=== PATIENT | female | born 1970 | race Caucasian/White ===

== ENCOUNTER 2018-02-05 20:34 | Inpatient (IN) | payer OTHER ==
[2018-02-05 21:44] LABS: Absolute Lymphocytes (CBC) 2.3 K/uL (0.7-4.9); Absolute Monocytes 1.3 K/uL (0.1-1.3); Absolute Neutrophil 16.2 K/uL (1.8-8.0); Basophils % 0.3 % (0-1.3); Eosinophils % 0.2 % (0-4.4); Hematocrit 38.7 % (36.0-45.0); Lymphocytes % 11.6 % (15.3-44.8); MCH 27.6 pg (27.0-35.0); MCV 82.2 fL (80-100); MPV 7.6 fL (7.6-11.3); Monocytes % 6.4 % (3.3-12.3); RBC Red Blood Cell Count 4.71 M/uL (3.86-4.86)
[2018-02-05] MEDS ORDERED: NA CHLORIDE 0.9% 1,000 ML ONE ×2 (21:54→22:29)
[2018-02-05 21:55] LABS: Bicarbonate 26 mEq/L (21-31); Glucose Level 88 mg/dL (65-120); Potassium 3.1 mEq/L (3.6-5.0); Sodium Level 130 mEq/L (135-145)
[2018-02-05 22:01] LABS: ALT/SGPT 14 IU/L (10-60); AST/SGOT 31 IU/L (10-42); Albumin 4.2 g/dL (3.2-5.5); Alkaline Phosphatase 64 IU/L (42-121); BUN Blood Urea Nitrogen 9 mg/dL (6-20); Bilirubin Direct 0.1 mg/dL (0-0.2); Bilirubin Total 1.1 mg/dL (0.3-1.2); Glomerular Filtration Rate 89 mL/min (=/>90); Protein, Total 7.7 g/dL (6.0-8.3)
[2018-02-05 22:10] LABS: Urine Blood NEGATIVE (NEG); Urine Glucose NEGATIVE (NEG); Urine Protein NEGATIVE (NEG)
[2018-02-05 22:15] LABS: Urine Bacteria <20 /HPF (<20); Urine Culture Reflex Order NOT NEEDED; Urine RBC <5 /HPF (NONE SEEN)
[2018-02-05 22:17] LABS: Alcohol Serum/Plasma < 10 mg/dl; Salicylates Level < 4.0 mg/dl (<30)
[2018-02-05 22:19] LABS: Barbiturates NEGATIVE; Benzodiazepines NEGATIVE; Cocaine NEGATIVE; METHAMPHETAM NEGATIVE; Opiates NEGATIVE; Phencyclidine NEGATIVE; THC Cannibis NEGATIVE
[2018-02-05] MEDS ORDERED: LEVALBUTEROL 1.25 MG/3 ML NEB ONE (22:28)
[2018-02-05] MEDS ORDERED: DIAZEPAM 10 MG/2 ML INJ SYRINGE ONE (22:30)
[2018-02-05] MEDS ORDERED: KCL 20 MEQ/100 mL IVPB 20 MEQ/100 ML BAG IV ONE (22:43)
[2018-02-06] MEDS ORDERED: ZIPRASIDONE MESYLA 20 MG/VIAL IM ONE (00:50)
[2018-02-06] MEDS ORDERED: LORazepam 2 MG/ML VIAL ONE (01:49)
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
--- NOTE | 2018-02-06 02:58 | EDPHYS ---
Physician Documentation [facility] Name: Fariba Payne Age: 47 yrs Sex: Female : 1970 Arrival Date: 02/05/2018 Time: 20:36 Bed 3 Private MD: ED Physician Matthew Rodriguez HPI: 02/05 23:48 This 47 yrs old Female presents to ER via Wheelchair with complaints of snw Altered Mental Status. 23:48 The patient presents with agitation, trouble concentrating. Onset: The symptoms/episode snw began/occurred at an unknown time. and became worse just prior to arrival. Possible causes: [place], pt off medications x several months. Associated signs and symptoms: Pertinent positives: agitation, confusion, gait abnormality, lightheadedness, weakness, cramping, insomnia. Current symptoms: In the emergency department the patient's symptoms are unchanged from the initial presentation. Patient's baseline: Neuro: alert and fully oriented, The patient has a previous history of psych meds, risperdol. It is unknown whether or not the patient has had similar symptoms in the past. The patient has not recently seen a physician. Lost [facility] follow up for missing appts, no f/u x several months. 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 - Social history:: Smoking status: Patient uses tobacco products, smokes one pack cigarettes per day. Patient uses alcohol, occasionally. Patient/guardian denies using street drugs. ROS: 23:47 Eyes: Negative for injury, pain, redness, and discharge, ENT: Negative for injury, snw pain, and discharge, Neck: Negative for injury, pain, and swelling, Cardiovascular: Negative for chest pain, palpitations, and edema. 23:47 Abdomen/GI: Negative for abdominal pain, nausea, vomiting, diarrhea, and constipation, Back: Negative for injury and pain, : Negative for injury, bleeding, discharge, and swelling, MS/Extremity: Negative for injury and deformity, Skin: Negative for injury, rash, and discoloration, Neuro: Negative for headache, weakness, numbness, tingling, and seizure. 23:47 Constitutional: Positive for body aches, malaise, poor PO intake, weight loss. 23:47 Respiratory: Positive for cough, shortness of breath, wheezing. 23:47 Psych: Positive for anxiety, insomnia. Exam: 23:45 Head/Face: Normocephalic, atraumatic. Eyes: Pupils equal round and reactive to light, snw extra-ocular motions intact. Lids and lashes normal. Conjunctiva and sclera are non-icteric and not injected. Cornea within normal limits. Periorbital areas with no swelling, redness, or edema. 23:45 Abdomen/GI: Soft, non-tender, with normal bowel sounds. No distension or tympany. No guarding or rebound. No evidence of tenderness throughout. Back: No spinal tenderness. No costovertebral tenderness. Full range of motion. MS/ Extremity: Pulses equal, no cyanosis. Neurovascular intact. Full, normal range of motion. 23:45 Neuro: Awake and alert, GCS 15, oriented to person, place, time, and situation. Cranial nerves II-XII grossly intact. Motor strength 5/5 in all extremities. Sensory grossly intact. Cerebellar exam normal. Normal gait. 23:45 Neck: Trachea midline, no thyromegaly or masses palpated, and no cervical lymphadenopathy. Supple, full range of motion without nuchal rigidity, or vertebral point tenderness. No Meningismus. Chest/axilla: Normal chest wall appearance and motion. Nontender with no deformity. No lesions are appreciated. Cardiovascular: Tachycardic rate and rhythm with a normal S1 and S2. No gallops, murmurs, or rubs. Normal PMI, no JVD. No pulse deficits. 23:45 Constitutional: The patient appears alert, anxious, restless, uncomfortable. 23:45 ENT: Mouth: Oral mucosa: dry. 23:45 Respiratory: the patient does not display signs of respiratory distress, Respirations: shallow respirations, tachypnea, Breath sounds: bronchial sounds, that are moderate, are heard diffusely, wheezin:45 Skin: Appearance: Temperature: warm, Moisture: dry. 23:45 Psych: Behavior/mood is anxious, Affect is calm, Oriented to person, place, Patient has no thoughts/intents to harm self or others. Vital Signs: 21:12 BP 159 / 114; Pulse 112; Resp 26; Temp 98.3(O); Pulse Ox 93% ; Weight 40.37 kg (R); tc3 Height 5 ft. 6 in. (167.64 cm) (R); Pain 0/10; 22:00 BP 119 / 90; Pulse 103; Resp 18; Pulse Ox 94% on R/A; dh3 23:30 BP 145 / 84; Pulse 103; Resp 19; Pulse Ox 94% on 2 lpm NC; rk2 03/15 00:30 BP 152 / 67; Pulse 101; Resp 19; Pulse Ox 97% on 2 lpm NC; rk2 04:20 BP 140 / 106; Pulse 140; Resp 40; Pulse Ox 100% on 15% Non-rebreather mask; lp1 04:27 BP 136 / 70; Pulse 137; Resp 12; Pulse Ox 100% on BVM; lp1 04:45 BP 132 / 77; Pulse 127; Resp 14; Pulse Ox 100% on 50% FiO2 ETT vent; bs1 05:00 BP 153 / 94; Pulse 114; Resp 15; Pulse Ox 91% on 50% FiO2 ETT vent; bs1 05:20 BP 133 / 61; Pulse 130; Resp 25; Temp 97.5(C); Pulse Ox 92% on 50% FiO2 ETT vent; bs1 05:40 BP 119 / 58; Pulse 119; Resp 20; Temp 99(C); Pulse Ox 95% on 50% FiO2 ETT vent; bs1 06:00 BP 115 / 51; Pulse 110; Resp 18; Temp 98.6(C); Pulse Ox 99% on 50% FiO2 ETT vent; bs1 06:15 BP 105 / 94; Pulse 91; Resp 18; Temp 98.9(C); Pulse Ox 100% on 50% FiO2 ETT vent; lp1 06:30 BP 116 / 59; Pulse 102; Resp 18; Temp 99.1(C); Pulse Ox 97% on 50% FiO2 ETT vent; bs1 06:45 BP 106 / 63; Pulse 99; Resp 18; Temp 99.1(C); Pulse Ox 100% on 50% FiO2 ETT vent; bs1 07:20 BP 109 / 54; Pulse 115 MON; Resp 18 S; Temp 99.1; Pulse Ox 100% on 50% FiO2 ETT vent; sg 02/05 21:12 Body Mass Index 14.36 (40.37 kg, 167.64 cm) tc3 Procedures: 04:33 Intubation: Ventilated with 100% NRB prior to procedure. Intubated orally using # 3 kathy Armaan blade with 7.5 mm ETT. was successful on first attempt. Ventilated with Ambu bag. Tube secured with ETT monte measured 22 cm at teeth. Placement verified by CXR, CO2 detector with (+) color change, auscultating bilateral breath sounds, Patient tolerated well. MDM: 02/05 21:23 Patient medically screened. [facility] 02/06 02:57 Data reviewed: vital signs, nurses notes. Data interpreted: Pulse oximetry: on room air snw is 93 %. Interpretation: borderline. Plan: O2 by NC applied. Counseling: I had a detailed discussion with the patient and/or guardian regarding: the historical points, exam findings, and any diagnostic results supporting the discharge/admit diagnosis, the presence of at least one elevated blood pressure reading (>120/80) during this emergency department visit, lab results, radiology results, the need for further work-up and treatment in the hospital, smoking cessation. Physician consultation: Viviana Lacy MD was called at 02:58, was contacted at 02:58, regarding admission, to the telemetry unit. in the emergency department to see patient at 02:58. 02/05 21:05 Order name: Urine Culture [facility] 02/05 21:05 Order name: Urine Drug Screen [facility] 02/05 21:05 Order name: Urine Microscopic Only [facility] 02/05 21:19 Order name: Acetaminophen [facility] 02/05 21:19 Order name: Basic Metabolic Panel [facility] 02/05 21:19 Order name: CBC with Diff [facility] 02/05 21:19 Order name: ETOH Level formerly [facility] 02/05 21:19 Order name: Hepatic Function formerly [facility] 02/05 21:19 Order name: PT-INR [facility] 02/05 21:19 Order name: Ptt, Activated [facility] 02/05 21:19 Order name: Salicylate [facility] 02/05 21:50 Order name: CBC with Automated Diff; Complete Time: 21:53 [facility] 02/05 21:50 Order name: Protime (+INR); Complete Time: 21:53 EDVT 02/05 21:50 Order name: PTT, Activated Partial Thromb; Complete Time: 21:53 EDVT 02/05 21:55 Order name: Basic Metabolic Panel; Complete Time: 22:26 EDVT 02/05 22:06 Order name: Urine Dipstick--Ancillary (enter results) ia 02/05 22:07 Order name: Urine --Ancillary (enter results) ia 02/05 22:11 Order name: Urine Dipstick-Ancillary; Complete Time: 22:15 EDMS 02/05 22:11 Order name: Urine --Ancillary; Complete Time: 22:15 EDVT 02/05 22:15 Order name: Urine Microscopic Only; Complete Time: 22:18 EDVT 02/05 22:18 Order name: Liver (Hepatic) Function; Complete Time: 22:26 [facility] 02/05 22:18 Order name: Acetaminophen Level; Complete Time: 22:26 [facility] 02/05 22:18 Order name: Alcohol Serum/Plasma; Complete Time: 22:26 [facility] 02/05 22:18 Order name: Salicylates Level; Complete Time: 22:26 [facility] 02/05 22:20 Order name: Urine Drug Screen; Complete Time: 22:26 [facility] 02/06 04:32 Order name: ABG [facility] 02/06 04:32 Order name: Sputum Culture [facility] 02/06 05:19 Order name: ABG Arterial Blood Gas; Complete Time: 05:33 EDVT 02/06 05:23 Order name: Blood Culture Adult (2) [facility] 02/06 07:03 Order name: Basic Metabolic Panel; Complete Time: 07:21 [facility] 02/05 21:05 Order name: Urine Test (obtain specimen); Complete Time: 22:04 [facility] 02/05 21:05 Order name: Urine Dipstick-Ancillary (obtain specimen); Complete Time: 22:04 [facility] 02/05 21:19 Order name: EKG; Complete Time: 21:20 [facility] 02/05 21:19 Order name: EKG - Nurse/Tech; Complete Time: 22:04 [facility] 02/05 21:19 Order name: IV Saline Lock; Complete Time: 21:37 [facility] 02/05 21:19 Order name: Labs collected and sent; Complete Time: 21:38 sn 02/06 00:41 Order name: CXR XRAY w 02/06 04:32 Order name: Chest Single View XRAY [facility] 02/06 07:17 Order name: XRAY Chest (1 view) 02/06 07:22 Order name: CBC with Automated Diff EDMS Administered Medications: 02/05 21:37 Drug: NS 0.9% 1000 ml Route: IV; Rate: 1 bolus; Site: right forearm; rk2 02/06 06:06 Follow up: IV Status: Completed infusion 1 02/05 22:18 Drug: Xopenex (3) 1.25 mg Route: Inhalation; rk2 22:18 Drug: Valium 5 mg Route: IVP; Site: right antecubital; rk2 23:00 Follow up: Response: No adverse reaction rk2 22:19 Drug: NS 0.9% 1000 ml Route: IV; Rate: 1 bolus; Site: right antecubital; rk2 02/06 06:06 Follow up: IV Status: Completed infusion [facility] 02/05 22:36 Drug: Potassium Chloride 20 mEq Route: IV; Rate: calculated rate; Site: right rk2 antecubital; 23:36 Follow up: Response: No adverse reaction; IV Status: Completed infusion rk2 23:57 Follow up: Response: No adverse reaction; IV Status: Completed infusion 2 02/06 00:47 Drug: Geodon 20 mg Route: IM; Site: right deltoid; rk2 03:01 Follow up: Response: Blood sugar is elevated; Anxiety unchanged rk2 01:36 Drug: Ativan 1 mg Route: IVP; Site: right antecubital; rk2 03:00 Follow up: Response: Anxiety unchanged rk2 03:14 Drug: HALdol (as decanoate) 5 mg Route: IM; Site: left deltoid; rk2 06:05 Follow up: Response: No adverse reaction bs1 03:51 Drug: fentaNYL (PF) 50 mcg Route: IM; Site: right gluteus; tc3 06:03 Follow up: Response: No adverse reaction bs1 04:23 Drug: Versed 6 mg Route: IVP; Site: right antecubital; lp1 06:04 Follow up: Response: No adverse reaction bs1 04:25 Drug: Etomidate 20 mg Route: IVP; Site: right antecubital; lp1 06:04 Follow up: Response: No adverse reaction bs1 04:27 Drug: Rocuronium 27 mg Route: IVP; Site: right antecubital; lp1 06:04 Follow up: Response: No adverse reaction bs1 05:00 Drug: Propofol 5 mcg/kg/min Route: IV; Rate: calculated rate; Site: right forearm; bs1 07:19 Follow up: IV Status: Completed infusion bs1 05:31 Drug: Versed 3 mg Route: IVP; Site: right forearm; bs1 06:05 Follow up: Response: No adverse reaction bs1 05:50 Drug: SOLU-Medrol 2 mg/kg Route: IVP; Site: right forearm; bs1 06:04 Follow up: Response: No adverse reaction bs1 05:50 Drug: Albuterol - atroVENT (3:1) (2.5 mg - 0.5 mg) 3 ml Route: Nebulizer; bs1 06:05 Follow up: Response: No adverse reaction bs1 06:16 Drug: Versed 2 mg Route: IVP; Site: right forearm; bs1 07:18 Follow up: Response: No adverse reaction bs1 06:46 Drug: levofloxacin 500 mg Volume: 100 ml; Route: IVPB; Infused Over: 60 mins; Site: lp1 left antecubital; 07:19 Follow up: IV Status: Completed infusion bs1 07:34 Drug: VecuroNIUM 10 mg {Note: VO per Gris Sherman PA.} Route: IVP; Site: left antecubital; tw2 Point of Care Testing: Blood Glucose: 05:33 Blood Glucose: 140 mg/dL; lp1 Ranges: Critical Glucose Levels:Adult <50 mg/dl or >400 mg/dl <40 mg/dl or >180 mg/dl Disposition: 13:54 Co-signature as Attending Physician, Matthew Rodriguez MD I agree with the assessment and kathy plan of care. Disposition: 02/06/18 02:57 Hospitalization ordered by Viviana Lacy for Observation. Preliminary diagnosis are Psychotic disorder with hallucinations due to known physiological condition, Chronic obstructive pulmonary disease, unspecified. - Bed requested for Intensive Care Unit. - Status is Observation. sg - Condition is Stable. - Problem is an acute exacerbation. - Symptoms have worsened. UTI on Admission? No Signatures: Dispatcher [employer] EDMS Mariluz Baig RN RN Brandon Fitzgerald, RN RN Matthew Guevara MD MD cha Therrien, Shelly, REQUISITION APPROVER-C REQUISITION APPROVER-Csnw Chet Bee MD MD rn Pena, Laura, RN RN lp1 Eva Garcia, RN RN tw2 Annie Bowers RN RN tc3 Dena Shirley RN RN bs1 Nilda Khan RN RN rk2 Corrections: (The following items were deleted from the chart) 02/05 23:48 23:45 Neck: Trachea midline, no thyromegaly or masses palpated, and no cervical snw lymphadenopathy. Supple, full range of motion without nuchal rigidity, or vertebral point tenderness. No Meningismus. Chest/axilla: Normal chest wall appearance and motion. Nontender with no deformity. No lesions are appreciated. Cardiovascular: Regular rate and rhythm with a normal S1 and S2. No gallops, murmurs, or rubs. Normal PMI, no JVD. No pulse deficits. snw
[2018-02-06] MEDS ORDERED: HALOPERIDOL LACT 5 MG/ML INJ ONE ×2 (03:28→07:24)
[2018-02-06] MEDS ORDERED: FENTANYL CITR 100 MCG/2 ML ONE (03:45)
[2018-02-06] MEDS ORDERED: RSI MEDICATION KIT IV ONE ×2 (04:34→04:53)
[2018-02-06] MEDS ORDERED: MIDAZOLAM HCL 2 MG/2 ML INJ ONE ×4 (04:34→06:37)
[2018-02-06] MEDS ORDERED: ONDANSETRON 4 MG/2 ML VIAL IV PRN (04:35)
[2018-02-06] MEDS ORDERED: ROCURONIUM 50 MG/5 ML VIAL IV ONE (04:40)
[2018-02-06] MEDS ORDERED: HALOPERIDOL LACT 5 MG/ML INJ IV PRN (04:45)
[2018-02-06 04:52] LABS: Arterial Blood Carboxyhemoglob 1.5 % (0-1.5); Blood Gas Oxyhemoglobin 95.2 % (94-97); Blood O2 Saturation 97.2 % (92-98.5)
[2018-02-06] MEDS: NA CHLORIDE 0.9% 1,000 ML IV SCH ×2 (05:00→18:20)
[2018-02-06] MEDS ORDERED: PROPOFOL 1,000 MG/100 ML VIAL IV ONE ×2 (05:05→11:21)
[2018-02-06] MEDS ORDERED: IPRATROPIUM BROM 0.5MG/2.5ML ONE (06:04)
[2018-02-06] MEDS ORDERED: ALBUTEROL 2.5 MG/3 ML NEB SOL ONE (06:04)
[2018-02-06] MEDS ORDERED: METHYLPREDNISOLONE 40 MG INJ ONE (06:05)
[2018-02-06] MEDS ORDERED: NA CHLORIDE 0.9% 1,000 ML ONE (06:05)
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
[2018-02-06] MEDS ORDERED: Levofloxacin500mg IV 500 MG/100 ML BAG IV ONE (06:47)
[2018-02-06 07:03] LABS: Potassium 3.3 mEq/L (3.6-5.0)
[2018-02-06 07:20] LABS: Absolute Lymphocytes (CBC) 0.8 K/uL (0.7-4.9); Absolute Monocytes 0.8 K/uL (0.1-1.3); Absolute Neutrophil 14.5 K/uL (1.8-8.0); Basophils % 0.1 % (0-1.3); Hematocrit 38.5 % (36.0-45.0); Lymphocytes % 5.2 % (15.3-44.8); MCH 27.1 pg (27.0-35.0); MCV 84.7 fL (80-100); Monocytes % 5.1 % (3.3-12.3); RBC Red Blood Cell Count 4.55 M/uL (3.86-4.86)
[2018-02-06] MEDS ORDERED: VECURONIUM 10 MG/VIAL IV ONE (07:51)
[2018-02-06] MEDS: IPRATROPIUM BROM 0.5MG/2.5ML NEB SCH ×3 (08:00→19:40)
[2018-02-06] MEDS: ARFORMOTEROL TARTRATE 15 MCG/2 ML VIAL.NEB NEB SCH ×2 (08:00→19:40)
[2018-02-06] MEDS: ALBUTEROL 2.5 MG/3 ML NEB SOL NEB SCH ×3 (08:00→19:40)
--- NOTE | 2018-02-06 08:20 | RAD REPORT ---
EXAM DESCRIPTION: RAD - Chest Single View - 02/06/2018 1:12 am CLINICAL HISTORY: COPD, smoker. COMPARISON: 01/01/2015 FINDINGS: Portable technique limits examination quality. The lungs are diffusely emphysematous but clear. The heart is normal in size. No displaced fractures. IMPRESSION: COPD.
[2018-02-06 08:51] LABS: Blood Morphology Comment NOT SEEN (NOT SEEN); Platelet Estimate ADEQ
[2018-02-06] MEDS ORDERED: PROPOFOL 200 MG/20 ML VIAL IV SCH (09:00)
--- NOTE | 2018-02-06 09:05 | RAD REPORT ---
EXAM DESCRIPTION: RAD - Chest Single View - 02/06/2018 4:47 am CLINICAL HISTORY: Shortness of breath, chest pain COMPARISON: 02/06/2018 FINDINGS: Portable technique limits examination quality. Mild diffuse COPD is present. Tip of the ET tube is above the dulce. Enteric tube descends in the st omach. The heart is normal in size. No displaced fractures. IMPRESSION: COPD. Endotracheal intubation with tip above the dulce. Enteric tube descends in the stomach.
--- NOTE | 2018-02-06 09:31 | RAD REPORT ---
EXAM DESCRIPTION: RAD - Chest Single View - 02/06/2018 7:42 am CLINICAL HISTORY: Endotracheal intubation. COMPARISON: 02/06/2018 FINDINGS: Portable technique limits examination quality. Diffuse COPD is present. Tip of the ET tube is above the dulce. Enteric tube descends in the stomach . The heart is normal in size. IMPRESSION: Stable chest since earlier examination.
--- NOTE | 2018-02-06 09:32 | RAD REPORT ---
EXAM DESCRIPTION: CT - Head Brain Wo Cont - 02/06/2018 8:21 am CLINICAL HISTORY: Altered consciousness COMPARISON: 01/01/2015 TECHNIQUE: All CT scans are performed using dose optimization technique as appropriate and may inclu de automated exposure control or mA/KV adjustment according to patient size. FINDINGS: No intracranial hemorrhage, hydrocephalus or extra-axial fluid collection.No areas of brai n edema or evidence of midline shift. Complete opacification of the left maxillary antrum suspected. The paranasal sinuses and mastoids are otherwise clear. The calvarium is intact. IMPRESSION: No acute intracranial abnormality. Complete left maxillary sinus opacification.
[2018-02-06] MEDS: LORazepam 2 MG/ML VIAL IV PRN ×3 (10:00→21:13)
--- NOTE | 2018-02-06 10:08 | P.PN ---
Subjective Date of Service: 02/06/18 Primary Care Provider: None, previously seen by [facility] Chief Complaint: Altered mental status/acute manic episode/COPD exacerbation Subjective: Other (Patient intubated and sedated at this time.) Physical Examination - Vital Signs Temperature: 99.1 F Blood Pressure: 109/54 Pulse: 115 Respirations: 18 Pulse Ox (%): 95 - Physical Exam General: Disheveled, Other (Patient intubated and sedated.) HEENT: Atraumatic Neck: Supple Respiratory: Clear to auscultation bilaterally, Normal air movement Cardiovascular: Normal pulses, Regular rate/rhythm Gastrointestinal: Normal bowel sounds, Soft and benign, Non-distended Musculoskeletal: No erythema, No tenderness, No warmth Integumentary: No warmth, No cyanosis - Studies Laboratory Data (last 24 hrs) 02/05/18 21:35: PT 11.8, INR 1.00, APTT 33.0 02/05/18 21:35: WBC 19.9 H, Hgb 13.0, Hct 38.7, Plt Count 339 02/05/18 21:35: Sodium 130 L, Potassium 3.1 L, BUN 9, Creatinine 0.71, Glucose 88, Total Bilirubin 1.1, AST 31, ALT 14, Alkaline Phosphatase 64 Medications List Reviewed: Yes Assessment & Plan - Problems (Diagnosis) (1) Acute psychosis Current Visit: Yes Status: Acute Plan: Patient currently intubated and sedated. Will have pulmonology evaluate an wean off ventilator. Patient with history of bipolar disorder. Patient came in with acute psychosis. Patient has been without medication for quite some time. Daughter reports that she was taking Paxil and seen by [facility]. Once the patient is medically stable, will have social media community manager consult [facility] to assess. Will try to obtain medical records from [facility]. Patient also being treated for COPD exacerbation. Patient with history of hypothyroidism. It appears that she has not been taking any medication. Will check TSH. Patient may require IV medication. IV thiamine also added. Patient was started on IV Depakote for acute psychosis. (2) Bipolar disorder Current Visit: Yes Status: Acute Plan: Will continue with above plan of care. Patient on IV Depakote. Will monitor closely. Qualifiers: Active/Remission status: currently active Current bipolar episode type: manic Current episode severity: severe Psychotic features: with psychotic features Qualified Code(s): F31.2 - Bipolar disorder, current episode manic severe with psychotic features (3) Emphysema with both acute and chronic bronchitis Current Visit: Yes Status: Acute Plan: Patient was intubated. Will continue with COPD treatment. Patient on IV steroids. Pulmonology consulted. Await further recommendation. Will wean off ventilator. (4) Respiratory distress Current Visit: Yes Status: Acute Plan: Continue with above plan of care. Await further recommendations from pulmonology. (5) Hypothyroidism Current Visit: No Status: Chronic Plan: Patient with history of hypothyroidism. Patient is not been compliant. Will check TSH and free T4. If abnormal patient will need medication. (6) Hyponatremia Current Visit: Yes Status: Acute Plan: This has improved with IV fluids. Will monitor and adjust appropriately. (7) Hypokalemia Current Visit: Yes Status: Acute Plan: Will continue with replacement protocol. Will monitor and adjust appropriately Discharge Plan: Home Plan to discharge in: Greater than 2 days Time Spent Managing Pts Care (In Minutes): 55
[2018-02-06 10:13] LABS: Barbiturates NEGATIVE; Benzodiazepines POSITIVE; Cocaine NEGATIVE; METHAMPHETAM NEGATIVE; Opiates NEGATIVE; Phencyclidine NEGATIVE; THC Cannibis NEGATIVE
[2018-02-06 10:14] LABS: Thyroid Stimulating Hormone 2.34 uIU/mL (0.34-5.60)
--- NOTE | 2018-02-06 10:25 | EKG ---
Test Date: 2018-02-05 Test Time: 20:48:05 [employer]: CL MEASUREMENT RESULTS: Intervals: Rate: 95 CA: 134 QRSD: 74 QT: 358 QTc: 449 [place]: P: 81 CA: 134 QRS: 79 T: 80 INTERPRETIVE STATEMENTS: Normal sinus rhythm Anterior infarct, age undetermined Abnormal ECG Compared to ECG 01/02/2015 10:52:01 Myocardial infarct finding now present Sinus tachycardia no longer present ST (T wave) deviation no longer present Electronically Signed On 02-06-18 10:23:43 CDT by Mono Cox
[2018-02-06] MEDS ORDERED: ETOMIDATE 20 MG/10 ML VIAL IV ONE (10:35)
[2018-02-06] MEDS: METHYLPREDNISOLONE 40 MG INJ IV SCH ×2 (11:42→17:16)
[2018-02-06] MEDS: VALPROATE SODIUM INJ 500 MG in NA CHLORIDE 0.9% 100 ML IV SCH ×2 (11:42→18:01)
[2018-02-06] MEDS: FOLIC ACID 1 MG, MULTIVITAMINS INJ 10 ML, THIAMINE HCL 100 MG in NA CHLORIDE 0.9% 1,000 ML IV SCH (11:42)
[2018-02-06] MEDS: ENOXAPARIN 40 MG/0.4 ML SQ SCH (11:43)
[2018-02-06] MEDS ORDERED: NA CHLORIDE 0.9% 250 ML IV PRN (12:17)
--- NOTE | 2018-02-06 12:37 | P.CNS ---
Date of Consult: 02/06/18 Primary Care Provider: None, previously seen by [facility] Chief Complaint: Altered mental status/acute manic episode/COPD exacerbation History of Present Illness: Patient is 47 years of age history of manic-depressive illness became worse over the past 4 days more shortness of breath heavy smoker she ended up with some manic episodes ended up here in the hospital hypoxic hypercapnic respiratory failure currently on a ventilator on a propofol drip because very agitated she has no insurance not taking any medications or inhalers Allergies morphine Allergy (Severe, Verified 02/06/18 12:06) Anaphylaxis Home Medications: Levothyroxine [Synthroid*] 25 mcg PO [id number] 10/14/13 Mirtazapine [Remeron*] 30 mg PO DAILY 10/14/13 Paroxetine HCl [Paxil*] 20 mg PO DAILY 10/14/13 Albuterol Neb [Proventil 0.083% Neb Soln] 2.5 mg NEB [id number] PRN #25 amp Albuterol Sulfate [Proair Hfa] 2 puff IH Q4HP PRN #1 [id number] 02/07/14 Ciprofloxacin HCl [Cipro] 500 mg PO BID #20 tablet 02/07/14 Fluticasone/Salmeterol [Advair 250/50 Diskus*] 1 puff IH BID #1 disk 02/07/14 Prednisone [Deltasone*] 10 mg PO DAILY #18 tab 02/07/14 - Past Medical/Surgical History Diabetic: No -: hypothyroidism -: depression -: bipolar -: COPD -: hypothyroid -: radiation to thyroid - Family History Father Family History: Reviewed- Non-Contributory - Social History Smoking Status: Current every day smoker Alcohol use: No CD- Drugs: No Caffeine use: Yes Review of Systems is unable to be obtained Physical Examination Temp Pulse Resp BP Pulse Ox 99.1 F 86 25 H 97/58 L 95 02/06/18 10:08 02/06/18 11:00 02/06/18 11:00 02/06/18 11:00 02/06/18 11:00 General: Other (Patient on a ventilator propofol drip) Neck: Supple Respiratory: Clear to auscultation bilaterally, Diminished Cardiovascular: No edema, Normal S1 S2 Gastrointestinal: Normal bowel sounds, Soft and benign Musculoskeletal: No clubbing, No swelling Integumentary: No rashes, No breakdown Laboratory Data (last 24 hrs) 02/05/18 21:35: PT 11.8, INR 1.00, APTT 33.0 02/05/18 21:35: WBC 19.9 H, Hgb 13.0, Hct 38.7, Plt Count 339 02/05/18 21:35: Sodium 130 L, Potassium 3.1 L, BUN 9, Creatinine 0.71, Glucose 88, Total Bilirubin 1.1, AST 31, ALT 14, Alkaline Phosphatase 64 - Problems (1) Acute and chronic respiratory failure ([id number]) Current Visit: Yes Status: Acute Plan: Patient is 47 years of age with a history of COPD heavy smoker admitted with hypoxic hypercapnic respiratory failure plan to adjust the ventilator on a propofol drip chest x-ray shows COPD changes continue with bronchodilators labs reviewed white count is mildly elevated plan to wean off and extubate tomorrow from the ventilator Qualifiers: Respiratory failure complication: hypoxia and hypercapnia Qualified Code(s) : J96.21 - Acute and chronic respiratory failure with hypoxia; J96.22 - Acute and chronic respiratory failure with hypercapnia; J96.22 - Acute and chronic respiratory failure with hypercapnia; J96.22 - Acute and chronic respiratory failure with hypercapnia
[2018-02-06] MEDS: MIDAZOLAM HCL 2 MG/2 ML INJ IV PRN ×2 (14:15→16:13)
[2018-02-06] MEDS: PROPOFOL 1,000 MG/100 ML VIAL IV PRN (15:00)
[2018-02-06] MEDS ORDERED: INFLUENZA VACCINE (for 5y+) 0.5 ML DOSE IMVAC ONE (15:00)
[2018-02-06] MEDS ORDERED: PNEUMOCOCCAL VACCINE 0.5 ML IMVAC ONE (15:00)
[2018-02-06] MEDS ORDERED: VITAL AF 1,000 ML BOT RTH SCH (15:00)
[2018-02-06] MEDS ORDERED: WATER FOR INJ,STERILE 10 ML IM PRN (15:36)
[2018-02-06] MEDS ORDERED: ZIPRASIDONE MESYLA 20 MG/VIAL IM PRN (15:36)
[2018-02-06] MEDS ORDERED: LORazepam 2 MG/ML VIAL IV PRN (15:41)
[2018-02-06] MEDS: FENTANYL CITR 100 MCG/2 ML IV PRN ×2 (17:32→23:31)
[2018-02-06] MEDS: FAMOTIDINE 20 MG/2 ML VIAL IV SCH (20:03)
[2018-02-07] MEDS: VALPROATE SODIUM INJ 500 MG in NA CHLORIDE 0.9% 100 ML IV SCH ×2 (00:49→09:00)
[2018-02-07] MEDS: METHYLPREDNISOLONE 40 MG INJ IV SCH ×2 (00:52→08:37)
[2018-02-07] MEDS: PROPOFOL 1,000 MG/100 ML VIAL IV PRN ×2 (01:16→06:56)
[2018-02-07] MEDS: IPRATROPIUM BROM 0.5MG/2.5ML NEB SCH ×4 (01:20→19:44)
[2018-02-07] MEDS: ALBUTEROL 2.5 MG/3 ML NEB SOL NEB SCH ×4 (01:20→19:44)
[2018-02-07] MEDS: LORazepam 2 MG/ML VIAL IV PRN (02:35)
[2018-02-07 05:24] LABS: Absolute Lymphocytes (CBC) 1.1 K/uL (0.7-4.9); Absolute Monocytes 0.4 K/uL (0.1-1.3); Basophils % 0.1 % (0-1.3); Lymphocytes % 7.9 % (15.3-44.8); MCH 27.2 pg (27.0-35.0); MCV 84.9 fL (80-100); MPV 8.2 fL (7.6-11.3); Monocytes % 3.1 % (3.3-12.3); RBC Red Blood Cell Count 4.12 M/uL (3.86-4.86)
[2018-02-07 05:41] LABS: Bicarbonate 29 mEq/L (21-31); Potassium 3.3 mEq/L (3.6-5.0); Sodium Level 143 mEq/L (135-145)
[2018-02-07 05:43] LABS: BUN Blood Urea Nitrogen 10 mg/dL (6-20); Glomerular Filtration Rate > 90 mL/min (=/>90); Glucose Level 124 mg/dL (65-120); Magnesium 2.1 mg/dL (1.8-2.5)
[2018-02-07] MEDS ORDERED: POTASSIUM 25 MEQ EFFERV TAB PO ONE (07:25)
[2018-02-07] MEDS: NA CHLORIDE 0.9% 1,000 ML IV SCH (07:40)
[2018-02-07] MEDS: ARFORMOTEROL TARTRATE 15 MCG/2 ML VIAL.NEB NEB SCH ×2 (08:04→19:44)
--- NOTE | 2018-02-07 08:13 | RAD REPORT ---
EXAM DESCRIPTION: Tj Single View02/07/2018 6:30 am CLINICAL HISTORY: Shortness breath COMPARISON: February 06 FINDINGS: Endotracheal and nasogastric tubes remain in good position. Mild left basilar lung opacities are suspected. The lungs remain hyperaerated. The remainder lungs ap pear clear. The heart is normal size IMPRESSION: Mild left basilar opacities may indicate pneumonia
[2018-02-07] MEDS: ENOXAPARIN 40 MG/0.4 ML SQ SCH (08:37)
[2018-02-07] MEDS: FAMOTIDINE 20 MG/2 ML VIAL IV SCH (08:37)
[2018-02-07] MEDS: FOLIC ACID 1 MG, MULTIVITAMINS INJ 10 ML, THIAMINE HCL 100 MG in NA CHLORIDE 0.9% 1,000 ML IV SCH (09:00)
[2018-02-07] MEDS: PARoxetine HCl 10 MG TAB PO SCH (09:53)
[2018-02-07] MEDS: RISPERIDONE 1 MG TABLET PO SCH ×2 (09:54→20:37)
--- NOTE | 2018-02-07 10:45 | P.PN ---
Subjective Date of Service: 02/07/18 Primary Care Provider: None, previously seen by [facility] Chief Complaint: Altered mental status/acute manic episode/COPD exacerbation Subjective: Other (Patient extubated. Patient doing well this time. Family at bedside.) Physical Examination - Vital Signs Temperature: 96.8 F Blood Pressure: 91/59 Pulse: 67 Respirations: 22 Pulse Ox (%): 99 - Physical Exam General: Alert, Oriented x1, Cooperative, Disheveled, Other (Patient is oriented x1, patient seemed appropriate but bought at times. This was also reflected with interaction with sister.) HEENT: Mucous membr. moist/pink Neck: Supple Respiratory: Expiratory wheezes (Bilateral) Cardiovascular: Normal pulses, Regular rate/rhythm Gastrointestinal: Normal bowel sounds, Soft and benign, Non-distended, No tenderness, No masses, No rebound, No guarding Musculoskeletal: No erythema, No tenderness, No warmth Integumentary: No tenderness/swelling, No erythema, No warmth, No cyanosis Neurological: Normal speech, Normal strength at 5/5 x4 extr, Normal tone, Abnormal affect (Patient appears anxious.) - Studies Medications List Reviewed: Yes Assessment & Plan - Problems (Diagnosis) (1) Acute psychosis Onset Date: 02/06/18 Current Visit: Yes Status: Acute Plan: Patient extubated at this time. Previous records from [facility] reviewed. Patient previously taking Paxil, risperidone for her bipolar disorder and schizophrenia. Patient was also last given Vistaril at night for rest. Sister who is at bedside mentions that daughter is trying to make arrangements to have patient live with her. Will monitor closely. Will have [facility] assess patient to see if she can safely be discharged home once medically stable. Will discuss with daughter. (2) Bipolar disorder Onset Date: 02/06/18 Current Visit: Yes Status: Acute Plan: Will discontinue Depakote at this time. Will restart Paxil and risperidone. Will provide sleep aid at night. Qualifiers: Active/Remission status: currently active Current bipolar episode type: manic Current episode severity: severe Psychotic features: with psychotic features Qualified Code(s): F31.2 - Bipolar disorder, current episode manic severe with psychotic features (3) Emphysema with both acute and chronic bronchitis Onset Date: 02/06/18 Current Visit: Yes Status: Acute Plan: Patient now extubated. Will continue with COPD treatment. Will change IV steroids to oral. Will maintain sats above 90%. Patient may require oxygen at discharge. Chest x-ray shows possible left lower lobe pneumonia. Will start Zithromax and Augmentin. Will monitor closely. (4) Respiratory distress Onset Date: 02/06/18 Current Visit: Yes Status: Acute Plan: This appears resolved. Patient extubated. Will continue with above plan of care. (5) Hyponatremia Current Visit: Yes Status: Acute Plan: This has resolved. Will discontinue IV fluids (6) Hypokalemia Current Visit: Yes Status: Acute Plan: Will continue with replacement protocol. Will monitor and adjust appropriately (7) Pneumonia Current Visit: Yes Status: Acute Plan: Possible left lower lobe pneumonia noted. Will start antibiotic therapy. Continue with above plan of care for COPD. Will wean off oxygen. Qualifiers: Pneumonia type: due to unspecified organism Laterality: left Lung location: lower lobe of lung Qualified Code(s): J18.1 - Lobar pneumonia, unspecified organism (8) Schizophrenia Current Visit: Yes Status: Chronic Plan: Patient with history of schizophrenia. Will continue with her medication. Patient to be assessed by [facility] Qualifiers: Schizophrenia type: unspecified Qualified Code(s): F20.9 - Schizophrenia, unspecified Discharge Plan: Other (Await assessment by [facility] to determine disposition) Time Spent Managing Pts Care (In Minutes): 55
[2018-02-07] MEDS: AMOX/K CLAV 875 MG TAB PO SCH ×2 (12:43→20:37)
[2018-02-07] MEDS: NICOTINE 21 MG/PAT TD SCH (12:43)
[2018-02-07] MEDS: AZITHROMYCIN 250 MG TAB PO SCH (12:44)
[2018-02-07] MEDS ORDERED: GUAIFENESIN/CODEINE 5ML UCUP PO PRN (20:35)
[2018-02-07] MEDS: hydrOXYzine HCl 25 MG TAB PO SCH (20:36)
[2018-02-07] MEDS: predniSONE 10 MG TAB PO SCH (20:37)
[2018-02-08] MEDS ORDERED: POTASSIUM CL SA 10 MEQ TAB PO ONE (00:18)
[2018-02-08] MEDS: ALBUTEROL 2.5 MG/3 ML NEB SOL NEB SCH ×2 (01:12→07:43)
[2018-02-08] MEDS: IPRATROPIUM BROM 0.5MG/2.5ML NEB SCH ×2 (01:12→07:43)
[2018-02-08 05:11] LABS: Absolute Lymphocytes (CBC) 1.8 K/uL (0.7-4.9); Absolute Monocytes 0.7 K/uL (0.1-1.3); Absolute Neutrophil 9.7 K/uL (1.8-8.0); Basophils % 0.3 % (0-1.3); Hematocrit 31.6 % (36.0-45.0); Lymphocytes % 14.8 % (15.3-44.8); MCV 83.8 fL (80-100); MPV 7.9 fL (7.6-11.3); Monocytes % 5.5 % (3.3-12.3); RBC Red Blood Cell Count 3.77 M/uL (3.86-4.86)
[2018-02-08 05:54] LABS: BUN Blood Urea Nitrogen 11 mg/dL (6-20); Bicarbonate 30 mEq/L (21-31); Glomerular Filtration Rate > 90 mL/min (=/>90); Glucose Level 90 mg/dL (65-120); Magnesium 1.9 mg/dL (1.8-2.5); Potassium 3.9 mEq/L (3.6-5.0); Sodium Level 144 mEq/L (135-145)
[2018-02-08] MEDS: ARFORMOTEROL TARTRATE 15 MCG/2 ML VIAL.NEB NEB SCH (07:43)
[2018-02-08] MEDS ORDERED: ALBUTEROL 2.5 MG/3 ML NEB SOL NEB PRN (07:51)
[2018-02-08] MEDS ORDERED: IPRATROPIUM BROM 0.5MG/2.5ML NEB PRN (07:52)
[2018-02-08] MEDS ORDERED: ARFORMOTEROL TARTRATE 15 MCG/2 ML VIAL.NEB NEB PRN (07:52)
[2018-02-08] MEDS: NICOTINE 21 MG/PAT TD SCH (08:18)
[2018-02-08] MEDS: PARoxetine HCl 10 MG TAB PO SCH (08:18)
[2018-02-08] MEDS: ENOXAPARIN 40 MG/0.4 ML SQ SCH (08:18)
[2018-02-08] MEDS: ACETAMINOPHEN 500 MG TAB PO PRN ×3 (08:19→18:23)
[2018-02-08] MEDS: RISPERIDONE 1 MG TABLET PO SCH ×2 (08:19→21:02)
[2018-02-08] MEDS: AMOX/K CLAV 875 MG TAB PO SCH ×2 (08:19→21:02)
[2018-02-08] MEDS: predniSONE 10 MG TAB PO SCH ×2 (08:19→21:02)
[2018-02-08] MEDS: AZITHROMYCIN 250 MG TAB PO SCH (08:19)
--- NOTE | 2018-02-08 09:50 | P.PN ---
Subjective Date of Service: 02/08/18 Primary Care Provider: None, previously seen by [facility] Chief Complaint: Altered mental status/acute manic episode/COPD exacerbation Subjective: Improving Physical Examination - Vital Signs Temperature: 99 F Blood Pressure: 90/62 Pulse: 82 Respirations: 29 Pulse Ox (%): 98 - Physical Exam General: Alert, Cooperative, Other (Patient appears comfortable and appropriate. She is following commands. Less irritable today) HEENT: Atraumatic, Mucous membr. moist/pink Neck: Supple Respiratory: Expiratory wheezes (Bilateral but improved) Cardiovascular: Normal pulses, Regular rate/rhythm Gastrointestinal: Normal bowel sounds, Soft and benign, Non-distended, No tenderness, No masses, No rebound, No guarding Musculoskeletal: No erythema, No tenderness, No warmth Integumentary: No erythema, No warmth, No cyanosis Neurological: Normal speech, Normal strength at 5/5 x4 extr, Normal tone, Other (Patient less irritable today. She seems to be more appropriate and calm. Patient not suicidal.) - Studies Microbiology Data (last 24 hrs): 02/05/18 21:55 Clean Catch Urine [place]on Count - Final BETWEEN 10,000 & 100,000 CFU/ML 02/05/18 21:55 Clean Catch Urine - Final Medications List Reviewed: Yes Assessment & Plan - Problems (Diagnosis) (1) Acute psychosis Onset Date: 02/06/18 Current Visit: Yes Status: Acute Plan: Patient was extubated yesterday. Patient evaluated by [facility]. Patient previously taking Paxil, risperidone for her bipolar disorder and schizophrenia. This was restarted. Patient seems to be more appropriate and calm today. Will transition patient to the floor. Will provide bed alarm. Will monitor closely. Will have respiratory wean off oxygen. What physical therapy assess ambulation. Care discussed with daughter. Will have [facility] reassess patient on Saturday for possible discharge home and follow up with site on Saturday. Patient responding well to the medication. No psychosis noted. She does not appear to be a danger to herself or to others. (2) Bipolar disorder Onset Date: 02/06/18 Current Visit: Yes Status: Acute Plan: Patient currently on Paxil and risperidone. Patient doing well at this time. Will continue with above plan of care. Qualifiers: Active/Remission status: currently active Current bipolar episode type: manic Current episode severity: severe Psychotic features: with psychotic features Qualified Code(s): F31.2 - Bipolar disorder, current episode manic severe with psychotic features (3) Emphysema with both acute and chronic bronchitis Onset Date: 02/06/18 Current Visit: Yes Status: Acute Plan: Patient doing better at this time. Will continue with COPD medication. Chest x -ray shows possible pneumonia. Will continue with antibiotic therapy. Will have respiratory wean off oxygen. (4) Respiratory distress Onset Date: 02/06/18 Current Visit: Yes Status: Acute Plan: This has improved. Will continue with above plan of care. (5) Hyponatremia Current Visit: Yes Status: Acute Plan: This has resolved. Will continue monitor closely (6) Hypokalemia Current Visit: Yes Status: Acute Plan: Will continue with replacement protocol. Will monitor and adjust appropriately (7) Pneumonia Current Visit: Yes Status: Acute Plan: Possible left lower lobe pneumonia noted. Will continue with antibiotic therapy. Will recheck chest x-ray. Qualifiers: Pneumonia type: due to unspecified organism Laterality: left Lung location: lower lobe of lung Qualified Code(s): J18.1 - Lobar pneumonia, unspecified organism (8) Schizophrenia Current Visit: Yes Status: Chronic Plan: Patient with history of schizophrenia. Patient stable with medication at this time. Will continue with above plan of care. Qualifiers: Schizophrenia type: unspecified Qualified Code(s): F20.9 - Schizophrenia, unspecified (9) Anemia Current Visit: Yes Status: Acute Plan: This is likely from dilution. Will check iron and B12 studies. Qualifiers: Anemia type: unspecified type Qualified Code(s): D64.9 - Anemia, unspecified (10) Malnutrition Current Visit: Yes Status: Chronic Plan: Patient with malnutrition. Will have dietary assess and make recommendation. Will encourage oral intake. Qualifiers: Malnutrition type: protein-calorie malnutrition Discharge Plan: Home Plan to discharge in: 48 Hours Time Spent Managing Pts Care (In Minutes): 55
--- NOTE | 2018-02-08 10:39 | RAD REPORT ---
EXAM DESCRIPTION: Tj Single View02/08/2018 6:46 am CLINICAL HISTORY: Chest pain COMPARISON: February 07 FINDINGS: The left lung opacities have mostly resolved. The right lung appears clear. The lungs alvino in hyperaerated. . The heart is normal size Endotracheal and enteric tubes have been removed IMPRESSION: Left lung opacities have mostly resolved
[2018-02-08] MEDS: hydrOXYzine HCl 25 MG TAB PO SCH (21:02)
[2018-02-09] MEDS: ACETAMINOPHEN 500 MG TAB PO PRN (04:32)
[2018-02-09 05:34] LABS: Absolute Lymphocytes (CBC) 2.1 K/uL (0.7-4.9); Absolute Monocytes 0.4 K/uL (0.1-1.3); Absolute Neutrophil 6.3 K/uL (1.8-8.0); Basophils % 0.1 % (0-1.3); Lymphocytes % 23.6 % (15.3-44.8); MCH 27.4 pg (27.0-35.0); MCV 84.6 fL (80-100); MPV 7.9 fL (7.6-11.3); Monocytes % 5.1 % (3.3-12.3); RBC Red Blood Cell Count 4.37 M/uL (3.86-4.86)
[2018-02-09 05:58] LABS: Bicarbonate 30 mEq/L (21-31); Potassium 4.1 mEq/L (3.6-5.0); Sodium Level 140 mEq/L (135-145)
[2018-02-09 05:59] LABS: BUN Blood Urea Nitrogen 8 mg/dL (6-20); Glomerular Filtration Rate > 90 mL/min (=/>90); Glucose Level 87 mg/dL (65-120); Magnesium 1.8 mg/dL (1.8-2.5)
[2018-02-09] MEDS ORDERED: MAGNESIUM SULFATE 1 gm IVPB 1 GM/100 ML BAG IV ONE (07:00)
[2018-02-09] MEDS: PARoxetine HCl 10 MG TAB PO SCH (07:58)
[2018-02-09] MEDS: AMOX/K CLAV 875 MG TAB PO SCH ×2 (07:58→20:30)
[2018-02-09] MEDS: AZITHROMYCIN 250 MG TAB PO SCH (07:59)
[2018-02-09] MEDS ORDERED: TRAMADOL HCL 50 MG TAB PO PRN (07:59)
[2018-02-09] MEDS: RISPERIDONE 1 MG TABLET PO SCH ×2 (07:59→20:31)
[2018-02-09] MEDS: ENOXAPARIN 40 MG/0.4 ML SQ SCH (07:59)
[2018-02-09] MEDS: predniSONE 10 MG TAB PO SCH ×2 (07:59→20:31)
[2018-02-09] MEDS: NICOTINE 21 MG/PAT TD SCH (08:00)
--- NOTE | 2018-02-09 11:59 | P.PN ---
Subjective Date of Service: 02/09/18 Primary Care Provider: None, previously seen by [facility] Chief Complaint: Altered mental status/acute manic episode/COPD exacerbation Subjective: Doing well Physical Examination - Vital Signs Temperature: 97.8 F Blood Pressure: 133/80 Pulse: 91 Respirations: 16 Pulse Ox (%): 90 - Physical Exam General: Alert, In no apparent distress, Cooperative HEENT: Atraumatic, Mucous membr. moist/pink Neck: Supple, No Thyromegaly Respiratory: Clear to auscultation bilaterally, Normal air movement Cardiovascular: Normal pulses, Regular rate/rhythm Gastrointestinal: Normal bowel sounds, Soft and benign, Non-distended, No tenderness, No masses, No rebound, No guarding Musculoskeletal: No erythema, No tenderness, No warmth Integumentary: No tenderness/swelling, No erythema, No warmth, No cyanosis Neurological: Normal speech, Normal strength at 5/5 x4 extr, Normal tone, Normal affect - Studies Microbiology Data (last 24 hrs): 02/05/18 21:55 Clean Catch Urine [place] Count - Final BETWEEN 10,000 & 100,000 CFU/ML 02/05/18 21:55 Clean Catch Urine - Final Medications List Reviewed: Yes Assessment & Plan - Problems (Diagnosis) (1) Acute psychosis Onset Date: 02/06/18 Current Visit: Yes Status: Resolved Plan: Patient doing well at this time. Patient seems to be back to her normal baseline. Patient wanting to go home. Patient evaluated by [facility] the other day. Patient previously taking Paxil, risperidone for her bipolar disorder and schizophrenia. This was restarted. Possible discharge today if I can get a hold of [facility] abrading machine tender to make sure that the patient has adequate follow up. (2) Bipolar disorder Onset Date: 02/06/18 Current Visit: Yes Status: Acute Plan: Patient currently on Paxil and risperidone. Patient doing well at this time. Will continue with above plan of care. Qualifiers: Active/Remission status: currently active Current bipolar episode type: manic Current episode severity: severe Psychotic features: with psychotic features Qualified Code(s): F31.2 - Bipolar disorder, current episode manic severe with psychotic features (3) Emphysema with both acute and chronic bronchitis Onset Date: 02/06/18 Current Visit: Yes Status: Acute Plan: Patient doing better at this time. Will continue with COPD medication. Sputum culture positive for H. Influenzea. Patient taking Augmentin which is sensitive. (4) Respiratory distress Onset Date: 02/06/18 Current Visit: Yes Status: Resolved Plan: This has improved and appears resolved. Will continue with above plan of care. (5) Hyponatremia Current Visit: Yes Status: Acute Plan: This has resolved. Will continue monitor closely (6) Hypokalemia Current Visit: Yes Status: Acute Plan: Will continue with replacement protocol. Will monitor and adjust appropriately (7) Pneumonia Current Visit: Yes Status: Acute Plan: Possible left lower lobe pneumonia noted. Will continue with antibiotic therapy. CXR shows resolution. Qualifiers: Pneumonia type: due to unspecified organism Laterality: left Lung location: lower lobe of lung Qualified Code(s): J18.1 - Lobar pneumonia, unspecified organism (8) Schizophrenia Current Visit: Yes Status: Chronic Plan: Patient with history of schizophrenia. Patient stable with medication at this time. Will continue with above plan of care. Qualifiers: Schizophrenia type: unspecified Qualified Code(s): F20.9 - Schizophrenia, unspecified (9) Anemia Current Visit: Yes Status: Acute Plan: This is likely from dilution. Will check iron and B12 studies. Qualifiers: Anemia type: unspecified type Qualified Code(s): D64.9 - Anemia, unspecified (10) Malnutrition Current Visit: Yes Status: Chronic Plan: Patient with malnutrition. Will have dietary assess and make recommendation. Will encourage oral intake. Qualifiers: Malnutrition type: protein-calorie malnutrition (11) COPD (chronic obstructive pulmonary disease) Current Visit: Yes Status: Acute Plan: Continue with plan of care. Qualifiers: COPD type: COPD with acute exacerbation Qualified Code(s): J44.1 - Chronic obstructive pulmonary disease with (acute) exacerbation Discharge Plan: Home Plan to discharge in: 24 Hours Time Spent Managing Pts Care (In Minutes): 55
[2018-02-09] MEDS: HYDROCODONE/APAP 7.5/325 MG TAB PO PRN (16:13)
[2018-02-09 18:46] VITALS: BMI 17.1
[2018-02-09 20:19] VITALS: O2SAT 93
[2018-02-09] MEDS: hydrOXYzine HCl 25 MG TAB PO SCH (20:31)
[2018-02-10] MEDS: HYDROCODONE/APAP 7.5/325 MG TAB PO PRN (05:28)
[2018-02-10 06:10] LABS: Bicarbonate 28 mEq/L (21-31); Potassium 4.1 mEq/L (3.6-5.0); Sodium Level 139 mEq/L (135-145)
[2018-02-10 06:16] LABS: Absolute Lymphocytes (CBC) 2.2 K/uL (0.7-4.9); Absolute Monocytes 0.6 K/uL (0.1-1.3); Absolute Neutrophil 5.4 K/uL (1.8-8.0); Basophils % 0.1 % (0-1.3); Eosinophils % 0.3 % (0-4.4); Hematocrit 42.8 % (36.0-45.0); Lymphocytes % 26.4 % (15.3-44.8); MCH 27.7 pg (27.0-35.0); MCV 83.8 fL (80-100); MPV 7.7 fL (7.6-11.3); Monocytes % 7.4 % (3.3-12.3)
[2018-02-10 06:50] LABS: BUN Blood Urea Nitrogen 9 mg/dL (6-20); Glomerular Filtration Rate > 90 mL/min (=/>90); Glucose Level 101 mg/dL (65-120); Magnesium 1.9 mg/dL (1.8-2.5)
[2018-02-10] MEDS: ENOXAPARIN 40 MG/0.4 ML SQ SCH (09:00)
[2018-02-10] MEDS: predniSONE 10 MG TAB PO SCH (09:18)
[2018-02-10] MEDS: AZITHROMYCIN 250 MG TAB PO SCH (09:18)
[2018-02-10] MEDS: RISPERIDONE 1 MG TABLET PO SCH (09:18)
[2018-02-10] MEDS: NICOTINE 21 MG/PAT TD SCH (09:18)
[2018-02-10] MEDS: PARoxetine HCl 10 MG TAB PO SCH (09:18)
[2018-02-10] MEDS: AMOX/K CLAV 875 MG TAB PO SCH (09:18)
[2018-02-10 14:16] VITALS: BP 126/68; TEMP 98.1
--- NOTE | 2018-02-10 15:34 | P.DS ---
Admission Date: 02/06/18 Discharge Date: 02/10/18 Primary Care Provider: None, previously seen by [facility] Disposition: ROUTINE DISCHARGE Discharge Condition: GOOD Reason for Admission: Altered mental status/acute manic episode/COPD exacerbation Consultations: Pulmonary-Dr. Black - Problems (1) Acute psychosis Onset Date: 02/06/18 Status: Resolved (2) Bipolar disorder Onset Date: 02/06/18 Status: Acute Qualifiers: Active/Remission status: currently active Current bipolar episode type: manic Current episode severity: severe Psychotic features: with psychotic features Qualified Code(s): F31.2 - Bipolar disorder, current episode manic severe with psychotic features (3) Emphysema with both acute and chronic bronchitis Onset Date: 02/06/18 Status: Acute (4) Respiratory distress Onset Date: 02/06/18 Status: Resolved (5) Hyponatremia Status: Resolved (6) Hypokalemia Status: Resolved (7) Pneumonia Status: Acute Qualifiers: Pneumonia type: due to unspecified organism Laterality: left Lung location: lower lobe of lung Qualified Code(s): J18.1 - Lobar pneumonia, unspecified organism (8) Schizophrenia Status: Chronic Qualifiers: Schizophrenia type: unspecified Qualified Code(s): F20.9 - Schizophrenia, unspecified (9) Anemia Status: Acute Qualifiers: Anemia type: unspecified type Qualified Code(s): D64.9 - Anemia, unspecified (10) Malnutrition Status: Chronic Qualifiers: Malnutrition type: protein-calorie malnutrition (11) COPD (chronic obstructive pulmonary disease) Status: Acute Qualifiers: COPD type: COPD with acute exacerbation Qualified Code(s): J44.1 - Chronic obstructive pulmonary disease with (acute) exacerbation Brief History of Present Illness: 47-year-old female presented to ER with increased agitation. The patient is a history of bipolar disorder and schizophrenia. She had not been taking her medication for quite some time. She also has been with increase agitation and poor sleep. The patient was evaluated the emergency room. She was given medication for agitation. After given medication the patient became hypoxic and had difficulty breathing. She also was agitated. The patient had to be intubated. The patient was admitted for further evaluation and treatment. Hospital Course: During the course of her stay the patient was weaned off the ventilator. She did quite well. Though some concern that she had a left lower lobe pneumonia. The patient was started on antibiotic therapy. The patient required oxygen but this was weaned off. The patient also has underlying COPD. She did have an exacerbation of this. The patient did well with medication. At discharge she will continue with Augmentin 875 mg 1 pill twice daily for 5 more days. The patient will also continue with prednisone 10 mg 1 pill twice daily for 5 days then 1 pill once daily for 5 days. Patient will continue with Airduo 1 puff twice daily and Pro air 2 puffs 3 times a day as needed for shortness of breath. Recommendation is for the patient to establish care with a PCP to continue her care. Patient may follow up with pulmonology as an outpatient to further address. Recommendation is to recheck chest x-ray in 2-4 weeks to monitor resolution. As for her acute psychosis the patient was initially evaluated by [facility]. The patient previous medications were reviewed. The patient was restarted on Paxil and risperidone. The patient did well with this combination of medication. Initially the patient was to be transferred to a psychiatric facility once she was medically stable. But since the patient mental status improved the patient was reassessed by [facility]. After reassessment the patient was okay to go home on medication including Paxil and risperidone. The patient will follow up with psychiatry tomorrow at 3:30 p.m.. Her family well help her with her mental condition. The patient does smoke. Tobacco cessation addressed in detail. Vital Signs/Physical Exam: Temp Pulse Resp BP Pulse Ox 98.1 F 132 H 16 126/68 91 02/10/18 12:00 02/10/18 12:00 02/10/18 12:00 02/10/18 12:02/10/18 12:00 General: Alert, In no apparent distress, Oriented x3, Cooperative HEENT: Atraumatic, Mucous membr. moist/pink Neck: Supple Respiratory: Clear to auscultation bilaterally, Normal air movement Cardiovascular: Normal pulses, Regular rate/rhythm Gastrointestinal: Normal bowel sounds, Soft and benign, Non-distended, No tenderness, No masses, No rebound, No guarding Musculoskeletal: No contractures, No erythema, No tenderness, No warmth Integumentary: No tenderness/swelling, No erythema, No warmth, No cyanosis Neurological: Normal speech, Normal strength at 5/5 x4 extr, Normal tone, Abnormal affect (Increased anxiety noted) Laboratory Data at Discharge: WBC 8.2 K/uL (4.3-10.9) 02/10/18 05:18 Hgb 14.1 g/dL (12.0-15.0) 02/10/18 05:18 Hct 42.8 % (36.0-45.0) D 02/10/18 05:18 Plt Count 332 K/uL (152-406) 02/10/18 05:18 PT 11.8 SECONDS (9.5-12.5) 02/05/18 21:35 INR 1.00 02/05/18 21:35 APTT 33.0 SECONDS (24.3-36.9) 02/05/18 21:35 Sodium 139 mEq/L (135-145) 02/10/18 05:18 Potassium 4.1 mEq/L (3.6-5.0) 02/10/18 05:18 BUN 9 mg/dL (6-20) 02/10/18 05:18 Creatinine 0.59 mg/dL (0.44-1.00) 02/10/18 05:18 Glucose 101 mg/dL (65-120) 02/10/18 05:18 Magnesium 1.9 mg/dL (1.8-2.5) 02/10/18 05:18 Total Bilirubin 1.1 mg/dL (0.3-1.2) 02/05/18 21:35 AST 31 IU/L (10-42) 02/05/18 21:35 ALT 14 IU/L (10-60) 02/05/18 21:35 Alkaline Phosphatase 64 IU/L (42-121) 02/05/18 21:35 Home Medications: Albuterol Sulfate [Proair Hfa] 8.5 gm IH TID PRN #1 hfa.aer.ad 02/10/18 Amox/Clavulanate [Augmentin 875-125 Tab*] 875 mg PO BID #10 tab 02/10/18 Fluticasone/Salmeterol [Airduo Respiclick 113-14 Mcg] 1 each IH BID #1 aer.pow.ba 02/10/18 Paroxetine HCl [Paxil] 40 mg PO DAILY #30 tablet 02/10/18 Prednisone [Deltasone*] 10 mg PO SEECOM #15 tab 02/10/18 Risperidone [Risperdal 1 mg tab*] 2 mg PO BID #60 tab 02/10/18 New Medications: Albuterol Sulfate [Proair Hfa] 8.5 gm IH TID PRN #1 hfa.aer.ad PRN Reason: Shortness Of Breath Amox/Clavulanate [Augmentin 875-125 Tab*] 875 mg PO BID #10 tab Fluticasone/Salmeterol [Airduo Respiclick 113-14 Mcg] 1 each IH BID #1 aer.pow.ba Paroxetine HCl [Paxil] 40 mg PO DAILY #30 tablet Prednisone [Deltasone*] 10 mg PO SEECOM #15 tab Risperidone [Risperdal 1 mg tab*] 2 mg PO BID #60 tab Patient Discharge Instructions: 1. Patient will need to establish care with a PCP in the local area to follow up this hospitalization. 2. Patient presented with acute psychosis with history of bipolar disorder and schizophrenia. Patient evaluated by [facility]. At discharge she will continue with Paxil 40 mg daily and risperidone 2 mg 1 pill twice daily. Patient will follow up with [facility] tomorrow to continue to follow up her care. Further adjustments can be done by psychiatry. 3. Patient also presented with pneumonia and COPD exacerbation. At discharge she will continue with Augmentin 875 mg 1 pill twice daily for 5 more days. The patient will also continue with prednisone 10 mg 1 pill twice daily for 5 days then 1 pill once daily for 5 days. Patient will continue with Airduo 1 puff twice daily and Pro air 2 puffs 3 times a day as needed for shortness of breath. Recommendation is for the patient to establish care with a PCP to continue her care. Patient may follow up with pulmonology as an outpatient to further address. Recommendation is to recheck chest x-ray in 2-4 weeks to monitor resolution. 4. Tobacco cessation education will be provided. Diet: AHA Activity: Ad migel Time spent managing pt's care (in minutes): 55
== END 2018-02-10 13:58 | disposition home or self-care (01) | DRG 208 ==
LOC: ER 20:34 → ERHOLD 02-06 02:57 → OBSVTOIN 02-06 02:57 → 3RD-ICU 02-06 07:42 → 2ND 02-08 10:56
PROVIDERS: ADMIT Hospitalist; ATTEND Hospitalist
PROC: 5A1945Z Respiratory Ventilation, 24-96 Consecutive Hours (ICD-10-PCS; principal; 2018-02-06)
PROC: 0BH17EZ Insertion of Endotracheal Airway into Trachea, Via Natural or Artificial Opening (ICD-10-PCS; 2018-02-06)
DX: J44.0 Chronic obstructive pulmonary disease with (acute) lower respiratory infection (principal); J18.9 Pneumonia, unspecified organism; E87.1 Hypo-osmolality and hyponatremia; F31.2 Bipolar disorder, current episode manic severe with psychotic features; E46 Unspecified protein-calorie malnutrition; Z68.1 Body mass index [BMI] 19.9 or less, adult; J44.1 Chronic obstructive pulmonary disease with (acute) exacerbation; R06.03 Acute respiratory distress; E87.6 Hypokalemia; D64.9 Anemia, unspecified; F17.210 Nicotine dependence, cigarettes, uncomplicated; E03.9 Hypothyroidism, unspecified
CPT/HCPCS: 31500; 36415; 51702; 70450; 71045; 80048; 80076; 80307; 80320; 80329; 81003; 81015; 81025; 82805; 82962; 83735; 84132; 84145; 84439; 84443; 85025; 85610; 85730; 87040; 87070; 87077; 87086; 87088; 87184; 87186; 87205; 93005; 94002; 94003; 94640; 96372; 99285; J1630; J1650; J2250; J2920; J3010; J3360; J3411; J3475; J3486; J7030; J7512; J7605

== ENCOUNTER 2019-01-13 14:47 | Emergency (ER) | payer OTHER ==
--- OUTSIDE RECORDS SUMMARY | 2019-01-13 15:20 | XMS REPORT ---
:1970 Author Organization [facility] Address [address] [place] [address] [address] [place] [address] Care Team Providers Name Role Phone EVANGELISTA ALEXANDRA Primary Care Provider Unavailable EVANGELISTA ALEXANDRA M.D. Unavailable Unavailable Problems This patient has no known problems. Allergies, Adverse Reactions, Alerts This patient has no known allergies or adverse reactions. Medications This patient has no known medications. Encounters Start End Encounter Admission Attending Care Care Encounter Date/Time Date/Time Type Type Clinicians Facility Department ID 2018-02-14 2018-02-19 [id number] 19:10:00 13:33:00 Xi NAIDU Results Test Description Test Time Test Comments Text Results Atomic Results Result Comments RPR, Qual 2018-02-15 10:00:00 Test Item Value Reference Range Comments RPR (test code=RPR) Non-Reactive Non-Reactive BHCG, Serum, [id number] 08:41:00 Test Item Value Reference Range Comments Preg Qual [Se] (test code=BSHCG) Negative Negative Thyroid Stimulating Hormone (TSH)2018-02-15 08:34:00 Test Item Value Reference Range Comments TSH (test code=TSH) 6.64 mIU/mL 0.270-4.200 Lipid [id number] 08:29:00 Test Item Value Reference Range Comments Cholesterol (test 160 mg/dL 0-200 code=CHOL) Triglycerides (test 90 mg/dL 9-200 code=TRIG) HDL (test code=HDL) 76 mg/dL 50-60 Chol/HDL (test 2.1 Ratio 0.0-4.4 code=CHOLPHDL) LDL, Calculated (test 66 0-130 (NOTE)RISK OF HEART code=LDLC) DISEASEPublished by Spanish Heart AssociationAnalyte Optimal Boderline Increased RiskCHOL <200 200-239 >240TRIG <150 150-199 >200HDL Male: >60 <40HDL Female: >60 <50LDL <100 130-159 >160LDL NEAR OPTIMAL IS 100-129 VLDL (test code=VLDL) 18 mg/dL 5-40 LDL/HDL (test code=LDLPHDL) 1 CBC with [id number] 08:05:00 Test Item Value Reference Range Comments WBC (test code=WBC) 11.0 K/cumm 4.4-10.5 RBC (test code=RBC) 4.36 M/cumm 3.75-5.20 Hemoglobin (test code=HGB) 11.8 gm/dL 12.2-14.8 Hematocrit (test code=HCT) 37.3 % 36.5-44.4 MCV (test code=MCV) 85.7 fL 80-100 MCH (test code=MCH) 27.1 pg 27.0-32.5 MCHC (test code=MCHC) 31.7 g/dL 32.0-37.5 RDW (test code=RDW) 17.3 % 11.5-14.5 Platelet Count (test code=PLTCT) 370 K/cumm 140-440 MPV (test code=MPV) 6.4 fL Diff Method (test code=DIFFM) Auto Neutrophil (test code=NEUT) 64.5 % 36-70 Lymphocyte (test code=LYMPH) 25.8 % 12-44 Monocyte (test code=MONO) 8.5 % 0-11 Eosinophil (test code=EOS) 0.9 % 0-7 Basophil (test code=BASO) 0.2 % 0-2 Neutro Abs (test code=ANEUT) 7.1 K/cumm 1.6-7.4 Lymph Abs (test code=ALYMPH) 2.8 K/cumm 0.5-4.6 Cooper Abs (test code=AMONO) 0.9 K/cumm 0.0-1.2 Eos Abs (test code=AEOS) 0.10 K/cumm 0.00-0.74 Baso Abs (test code=ABASO) 0.0 K/cumm 0.00-0.21
--- NOTE | 2019-01-13 15:54 | ER ---
Nurse's Notes [facility] Name: Fariba Payne Age: 48 yrs Sex: Female : 1970 Arrival Date: 01/13/2019 Time: 14:49 Bed 24 Private MD: Diagnosis: Pain in knee Presentation: 01/13 15:02 Presenting complaint: Patient states: Bilateral knee pain and swelling x 3 days. Denies hb injury. Transition of care: patient was not received from another setting of care. Onset of symptoms was January 10, 2019. Risk Assessment: Do you want to hurt yourself or someone else? Patient reports no desire to harm self or others. Care prior to arrival: None. 15:02 Method Of Arrival: Ambulatory hb 15:02 Acuity: EMPERATRIZ 3 hb 15:10 Initial Sepsis Screen: Does the patient meet any 2 criteria? No. Patient's initial ls4 sepsis screen is negative. Does the patient have a suspected source of infection? No. Patient's initial sepsis screen is negative. Triage Assessment: 15:10 General: Appears in no apparent distress. unkempt, Behavior is calm, cooperative. Pain: ls4 Complains of pain in right leg and left leg Pain currently is 9 out of 10 on a pain scale. 15:10 Musculoskeletal: Circulation, motion, and sensation intact. Capillary refill < 3 ls4 seconds, Range of motion: intact in all extremities. 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 - Social history:: Smoking status: Patient uses tobacco products, smokes one pack cigarettes per day. - Ebola Screening: : No symptoms or risks identified at this time. Screenin:14 Abuse screen: Denies threats or abuse. Denies injuries from another. Nutritional ls4 screening: No deficits noted. Tuberculosis screening: No symptoms or risk factors identified. Fall Risk None identified. Vital Signs: 15:03 BP 124 / 64; Pulse 103; Resp 20; Temp 98.5; Pulse Ox 92% on R/A; Pain 9/10; hb ED Course: 14:49 Patient arrived in ED. rg4 15:03 Triage completed. hb 15:04 Arm band placed on. hb 15:10 Patient has correct armband on for positive identification. Bed in low position. Call ls4 light in reach. Side rails up X 1. 15:10 No provider procedures requiring assistance completed. Patient did not have IV access ls4 during this emergency room visit. 15:14 Shaista Roberson, RN is Primary Nurse. ls4 15:19 Michelle Solano FNP-C is [facility]. snw 15:19 Matthew Rodriguez MD is Attending Physician. snw Administered Medications: 15:52 Drug: TORadol 60 mg Route: IM; Site: right deltoid; ls4 16:13 Follow up: Response: No adverse reaction; Marked relief of symptoms ls4 Outcome: 15:53 Discharge ordered by MD. snw 16:16 Discharged to home ambulatory, with family. ls4 16:16 Condition: stable 16:16 Discharge instructions given to patient, family, Instructed on discharge instructions, follow up and referral plans. medication usage, safety practices, Demonstrated understanding of instructions, follow-up care, medications, Prescriptions given X 1. 16:16 Patient left the ED. ls4 Signatures: Michelle Solano FNP-C BRIDGE GAME DIRECTOR-Csnw Carmita Almaguer RN Maryanne Engel rg4 Shaista Roberson RN RN ls4
--- NOTE | 2019-01-13 15:54 | EDPHYS ---
Physician Documentation [facility] Name: Fariba Payne Age: 48 yrs Sex: Female : 1970 Arrival Date: 01/13/2019 Time: 14:49 Bed 24 Private MD: Matthew Martins HPI: 01/13 15:58 This 48 yrs old Female presents to ER via Ambulatory with complaints of Knee snw Pain, Leg Pain. 15:58 The patient presents with pain, that is acute. The complaints affect the right knee and snw left knee. Onset: The symptoms/episode began/occurred suddenly, this am, bilateral knees. Associated signs and symptoms: The patient has no apparent associated signs or symptoms. Severity of symptoms: At their worst the symptoms were moderate. It is unknown whether or not the patient has had similar symptoms in the past. The patient has not recently seen a physician. 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 - Social history:: Smoking status: Patient uses tobacco products, smokes one pack cigarettes per day. - Ebola Screening: : No symptoms or risks identified at this time. ROS: 15:57 Constitutional: Negative for fever, chills, and weight loss, Eyes: Negative for injury, snw pain, redness, and discharge, ENT: Negative for injury, pain, and discharge, Neck: Negative for injury, pain, and swelling, Cardiovascular: Negative for chest pain, palpitations, and edema, Respiratory: Negative for shortness of breath, cough, wheezing, and pleuritic chest pain, Abdomen/GI: Negative for abdominal pain, nausea, vomiting, diarrhea, and constipation, Back: Negative for injury and pain, : Negative for injury, bleeding, discharge, and swelling, Skin: Negative for injury, rash, and discoloration, Neuro: Negative for headache, weakness, numbness, tingling, and seizure. 15:57 MS/extremity: Positive for pain, of the bilateral knee pain. Exam: 15:56 Constitutional: This is a well developed, well nourished patient who is awake, alert, snw and in no acute distress. Head/Face: Normocephalic, atraumatic. Eyes: Pupils equal round and reactive to light, extra-ocular motions intact. Lids and lashes normal. Conjunctiva and sclera are non-icteric and not injected. Cornea within normal limits. Periorbital areas with no swelling, redness, or edema. ENT: Nares patent. No nasal discharge, no septal abnormalities noted. Tympanic membranes are normal and external auditory canals are clear. Oropharynx with no redness, swelling, or masses, exudates, or evidence of obstruction, uvula midline. Mucous membranes moist. Neck: Trachea midline, no thyromegaly or masses palpated, and no cervical lymphadenopathy. Supple, full range of motion without nuchal rigidity, or vertebral point tenderness. No Meningismus. Chest/axilla: Normal chest wall appearance and motion. Nontender with no deformity. No lesions are appreciated. Cardiovascular: Regular rate and rhythm with a normal S1 and S2. No gallops, murmurs, or rubs. Normal PMI, no JVD. No pulse deficits. Respiratory: Lungs have equal breath sounds bilaterally, clear to auscultation and percussion. No rales, rhonchi or wheezes noted. No increased work of breathing, no retractions or nasal flaring. Abdomen/GI: Soft, non-tender, with normal bowel sounds. No distension or tympany. No guarding or rebound. No evidence of tenderness throughout. Back: No spinal tenderness. No costovertebral tenderness. Full range of motion. Skin: Warm, dry with normal turgor. Normal color with no rashes, no lesions, and no evidence of cellulitis. Neuro: Awake and alert, GCS 15, oriented to person, place, time, and situation. Cranial nerves II-XII grossly intact. Motor strength 5/5 in all extremities. Sensory grossly intact. Cerebellar exam normal. Normal gait. Psych: Awake, alert, with orientation to person, place and time. Behavior, mood, and affect are within normal limits. 15:56 Musculoskeletal/extremity: Extremities: grossly normal except: bilateral knee pain upon waking this am. Vital Signs: 15:03 BP 124 / 64; Pulse 103; Resp 20; Temp 98.5; Pulse Ox 92% on R/A; Pain 9/10; hb MDM: 15:19 Patient medically screened. [facility] 15:57 Data reviewed: vital signs, nurses notes. Data interpreted: Pulse oximetry: on room air snw is 92 %. Interpretation: pt with hx of COPD. Counseling: I had a detailed discussion with the patient and/or guardian regarding: the historical points, exam findings, and any diagnostic results supporting the discharge/admit diagnosis, the need for outpatient follow up, to return to the emergency department if symptoms worsen or persist or if there are any questions or concerns that arise at home. Special discussion: Based on the history and exam findings, there is no indication for further emergent testing or inpatient evaluation. I discussed with the patient/guardian the need to see the orthopedic surgeon for further evaluation of the symptoms. Administered Medications: 15:52 Drug: TORadol 60 mg Route: IM; Site: right deltoid; ls4 16:13 Follow up: Response: No adverse reaction; Marked relief of symptoms ls4 Disposition: 16:38 Co-signature as Attending Physician, Matthew Rodriguez MD I agree with the assessment and [facility] plan of care. Disposition: 01/13/19 15:53 Discharged to Home. Impression: Pain in knee. - Condition is Stable. - Discharge Instructions: How to Use a Knee Brace, RICE for Routine Care of Injuries, Knee Pain. - Prescriptions for Diclofenac Sodium 75 mg Oral Tablet Sustained Release - take 1 tablet by ORAL route 2 times per day; 30 tablet. - Medication Reconciliation Form, Thank You Letter, Antibiotic Education, Prescription Opioid Use form. - Follow up: Private Physician; When: 2 - 3 days; Reason: Recheck today's complaints, Continuance of care, Re-evaluation by your physician. Follow up: Emergency Department; When: As needed; Reason: Worsening of condition. Signatures: Matthew Rodriguez MD MD cha Therrien, Shelly, NANNY/HOUSEHOLD MANAGER-C NANNY/HOUSEHOLD MANAGER-Csnw Carmita Almaguer, RN RN Shaista Betts RN RN ls4 Corrections: (The following items were deleted from the chart) 16:16 15:53 01/13/2019 15:53 Discharged to Home. Impression: Pain in knee. Condition is ls4 Stable. Forms are Medication Reconciliation Form, Thank You Letter, Antibiotic Education, Prescription Opioid Use. Follow up: Private Physician; When: 2 - 3 days; Reason: Recheck today's complaints, Continuance of care, Re-evaluation by your physician. Follow up: Emergency Department; When: As needed; Reason: Worsening of condition. snw
[2019-01-13] MEDS ORDERED: KETOROLAC 30 MG/ML INJ ONE (16:06)
[2019-01-13 16:28] VITALS: BP 124/64; TEMP 98.5; O2SAT 92
== END 2019-01-13 16:16 | disposition home or self-care (01) ==
LOC: ER 14:47
DX: M25.562 Pain in left knee (principal); F41.9 Anxiety disorder, unspecified; F31.9 Bipolar disorder, unspecified; J44.9 Chronic obstructive pulmonary disease, unspecified; Z88.5 Allergy status to narcotic agent
CPT/HCPCS: 96372; 99283

== ENCOUNTER 2022-02-07 10:11 | Inpatient (IN) | payer OTHER ==
--- OUTSIDE RECORDS SUMMARY | 2022-02-07 10:20 | XMS REPORT | Continuity of Care Document ---
:1970 Author Organization [facility] t Address [address] [place] [address] Care Team Providers Name Role Phone IBRAHIMA Primary Care Physician Unavailable EVANGELISTA ALEXANDRA M.D. Attending Clinician Unavailable EVANGELISTA ALEXANDRA M.D. Admitting Clinician Unavailable Problems This patient has no known problems. Allergies, Adverse Reactions, Alerts This patient has no known allergies or adverse reactions. Medications This patient has no known medications. Procedures This patient has no known procedures. Encounters Start End Encounter Admission Attending Care Care Encounter Source Date/Time Date/Time Type Type Clinicians Facility Department ID 2018-02-14 2018-02-19 [id number] 19:10:00 13:33:00 Yann NAIDU M.D. [facility] Results Test Description Test Time Test Comments Results Result Comments Source RPR, Qual 2018-02-15 10:00:00 Test Item Value Reference Range Interpretation Comme nts RPR (test code = RPR) Non-Reactive Non-Reactive N BHCG, Serum, [id number] 08:41:00 Test Item Value Reference Range Interpretation Comments Preg Qual [Se] (test code = BSHCG) Negative Negative N Thyroid Stimulating Hormone (TSH)2018-02-15 08:34:00 Test Item Value Reference Range Interpretation Comments TSH (test code = TSH) 6.64 mIU/mL 0.270-4.200 H Lipid [id number] 08:29:00 Test Item Value Reference Range Interpretation Comments Cholesterol (test 160 mg/dL 0-200 N code = CHOL) Triglycerides (test 90 mg/dL 9-200 N code = TRIG) HDL (test code = 76 mg/dL 50-60 H HDL) Chol/HDL (test code 2.1 Ratio 0.0-4.4 N = CHOLPHDL) LDL, Calculated 66 0-130 N (NOTE)RISK O F HEART (test code = LDLC) DISEASEPu blished by Citizen Of [place] Heart AssociationAnal yte Optim al Boderline Increased RiskC HOL <200 200-239 >240TRI G <150 150-199 >200HDL Male: >60 <40HDL Female: >60 <50 LDL < 100 130-15 9 >160 LDL NEAR OPTIMAL IS 100- 129 VLDL (test code = 18 mg/dL 5-40 N VLDL) LDL/HDL (test code = 1 LDLPHDL) CBC with [id number] 08:05:00 Test Item Value Reference Range Interpretation Comments WBC (test code = WBC) 11.0 K/cumm 4.4-10.5 H RBC (test code = RBC) 4.36 M/cumm 3.75-5.20 N Hemoglobin (test code = HGB) 11.8 gm/dL 12.2-14.8 L Hematocrit (test code = HCT) 37.3 % 36.5-44.4 N MCV (test code = MCV) 85.7 fL 80-100 N MCH (test code = MCH) 27.1 pg 27.0-32.5 N MCHC (test code = MCHC) 31.7 g/dL 32.0-37.5 L RDW (test code = RDW) 17.3 % 11.5-14.5 H Platelet Count (test code = 370 K/cumm 140-440 N PLTCT) MPV (test code = MPV) 6.4 fL Diff Method (test code = DIFFM) Auto Neutrophil (test code = NEUT) 64.5 % 36-70 N Lymphocyte (test code = LYMPH) 25.8 % 12-44 N Monocyte (test code = MONO) 8.5 % 0-11 N Eosinophil (test code = EOS) 0.9 % 0-7 N Basophil (test code = BASO) 0.2 % 0-2 N Neutro Abs (test code = ANEUT) 7.1 K/cumm 1.6-7.4 N Lymph Abs (test code = ALYMPH) 2.8 K/cumm 0.5-4.6 N Mills Abs (test code = AMONO) 0.9 K/cumm 0.0-1.2 N Eos Abs (test code = AEOS) 0.10 K/cumm 0.00-0.74 N Baso Abs (test code = ABASO) 0.0 K/cumm 0.00-0.21 N
[2022-02-07 11:24] LABS: Hematocrit 46.1 % (36.0-45.0); MPV 7.1 fL (7.6-11.3); RBC Red Blood Cell Count 5.33 M/uL (3.86-4.86)
[2022-02-07 11:53] LABS: Albumin 2.9 g/dL (3.4-5.0); Bilirubin Total 0.2 mg/dL (0.2-1.0); Potassium 3.8 mmol/L (3.5-5.1); Protein, Total 7.6 g/dL (6.4-8.2); Troponin High Sensitivity 6.8 pg/mL (<58.9)
--- NOTE | 2022-02-07 11:58 | RAD REPORT ---
EXAM DESCRIPTION: RAD - Chest Single View - 02/07/2022 11:24 am CLINICAL HISTORY: SOB Chest pain. COMPARISON: Chest Pa And Lat (2 Views) dated 08/07/2018; Chest Single View dated 02/12/2018; Chest Sin gle View dated 02/08/2018; Chest Single View dated 02/07/2018 FINDINGS: Portable technique limits examination quality. Moderate COPD pattern is seen. The heart is normal in size. No displaced fractures. IMPRESSION: Moderate COPD
[2022-02-07 12:36] LABS: SARS-COV-2 RT PCR NEGATIVE (NEGATIVE)
[2022-02-07] MEDS ORDERED: METHYLPREDNISOLONE 125 MG INJ ONE (12:49)
[2022-02-07] MEDS ORDERED: ALBUTEROL 2.5 MG/3 ML NEB SOL ONE (12:50)
[2022-02-07] MEDS ORDERED: IPRATROPIUM BROM 0.5MG/2.5ML ONE ×2 (12:50→20:09)
--- NOTE | 2022-02-07 13:23 | EDPHYS ---
Physician Documentation [facility] Name: Fariba Payne Age: 51 yrs Sex: Female : 1970 Arrival Date: 02/07/2022 Time: 10:14 Bed 30 Private MD: ED Physician Gualberto Maya HPI: 02/07 10:28 This 51 yrs old Female presents to ER via Unassigned with complaints of Cough, ms3 Shortness Of Breath. 10:28 The patient has shortness of breath at rest. Onset: The symptoms/episode began/occurred ms3 4 day(s) ago. Duration: The symptoms are continuous. The patient's shortness of breath has no apparent modifying factors. Associated signs and symptoms: Pertinent negatives: chest pain, fever, loss of consciousness, vomiting. Severity of symptoms: At their worst the symptoms were moderate in the emergency department the symptoms are unchanged. 51-year-old female with past medical history of COPD and pneumonia presents for shortness of breath that has been ongoing for 4 days and becoming worse. Patient currently rates her shortness of breath a 6/10 and states she is unable to get air in. Patient states this is similar to when she had pneumonia in the past. Patient denies alleviating or inciting factors. Patient states she took her trilogy and proair without relief. Patient denies nausea, vomiting, chest pain.. 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 - Social history:: Smoking status: Patient reports the use of cigarette tobacco products, smokes one pack cigarettes per day. ROS: 10:28 Constitutional: Negative for fever, and chills. Eyes: Negative for injury, pain, ms3 redness, and discharge, Neck: Negative for injury, pain, and swelling, Abdomen/GI: Negative for abdominal pain, nausea, vomiting, diarrhea, and constipation, Back: Negative for injury and pain, MS/Extremity: Negative for injury and deformity, Skin: Negative for injury, rash, and discoloration, Neuro: Negative for headache, weakness, numbness, tingling. Psych: Negative for depression, anxiety, suicide ideation, homicidal ideation, and hallucinations. 10:28 Cardiovascular: 10:28 Respiratory: Positive for cough, shortness of breath. Exam: 10:28 Constitutional: This is a well developed, well nourished patient who is awake, alert, ms3 and in no acute distress. Head/Face: Normocephalic, atraumatic. Neck: Trachea midline, no cervical lymphadenopathy. Supple, full range of motion without nuchal rigidity, or vertebral point tenderness. No Meningismus. Chest/axilla: Normal chest wall appearance and motion. Nontender with no deformity. 10:28 Cardiovascular: Rate: tachycardic, Rhythm: regular, Heart sounds: normal, normal S1and S2. 10:28 Respiratory: mild respiratory distress is noted, Respirations: prolonged exhalation, that is moderate, Breath sounds: rales, wheezin:04 ECG was reviewed by the Attending Physician. ms3 Vital Signs: 10:25 Pulse Ox 85% on R/A; jd3 10:29 BP 114 / 63; Pulse 116; Resp 22 S; Temp 99.0(TE); Pulse Ox 95% on 3 lpm NC; Weight jd3 77.11 kg (R); Height 5 ft. 6 in. (167.64 cm) (R); Pain 5/10; 11:30 BP 104 / 85; Pulse 104; Resp 26; Pulse Ox 98% on 3 lpm NC; ph 12:40 BP 113 / 70; Pulse 101; Resp 20; Pulse Ox 98% on R/A; lr4 14:43 BP 110 / 77; Pulse 91; Resp 20; Pulse Ox 98% on 4 lpm NC; lr4 17:19 BP 118 / 63; Pulse 87; Resp 20; Pulse Ox 96% on 4 lpm NC; lr4 18:10 BP 107 / 50; Pulse 82; Resp 20; Temp 98.8(O); Pulse Ox 95% ; lr4 10:29 Body Mass Index 27.44 (77.11 kg, 167.64 cm) jd3 MDM: 10:26 Patient medically screened. ms3 13:25 Differential diagnosis: Bronchitis Chronic Obstructive Pulmonary Disease pneumonia, ms3 pulmonary edema, reactive airway disease. Data reviewed: vital signs, nurses notes, lab test result(s), EKG, radiologic studies, plain films. Data interpreted: Pulse oximetry: on room air is 85 %. Interpretation: hypoxia. Counseling: I had a detailed discussion with the patient and/or guardian regarding: the historical points, exam findings, and any diagnostic results supporting the discharge/admit diagnosis, lab results, radiology results, the need for further work-up and treatment in the hospital. ED course: Discussed case with Dr. Bee and he accepts patient as admission. Discussed plan for admission with patient. Patient understands agrees with plan. Patient remains in stable condition in the emergency department. 02/07 10:28 Order name: Blood Culture Adult (2) ms3 02/07 10:28 Order name: CBC with Diff; Complete Time: 12:41 ms3 02/07 10:28 Order name: CMP; Complete Time: 12:41 ms3 02/07 10:28 Order name: Lactate; Complete Time: 12:41 ms3 02/07 10:28 Order name: Protime (+inr); Complete Time: 12:41 ms3 02/07 10:28 Order name: Ptt, Activated; Complete Time: 12:41 ms3 02/07 10:28 Order name: Urine Microscopic Only ms3 02/07 10:28 Order name: Troponin HS; Complete Time: 12:41 ms3 02/07 10:38 Order name: COVID-19/FLU A+B (Document "Date of Onset" if Symptomatic); Complete Time: ms3 12:41 02/07 14:33 Order name: Basic Metabolic Panel EDMS 02/07 14:33 Order name: Basic Metabolic Panel EDMS 02/07 14:33 Order name: Magnesium EDMS 02/07 14:33 Order name: CBC with Automated Diff EDMS 02/07 14:33 Order name: CBC with Automated Diff EDMS 02/07 10:28 Order name: Chest Single View XRAY; Complete Time: 12:41 ms3 02/07 10:28 Order name: Accucheck; Complete Time: 10:54 ms3 02/07 10:28 Order name: Cardiac monitoring; Complete Time: 10:54 ms3 02/07 10:28 Order name: EKG - Nurse/Tech; Complete Time: 11:08 ms3 02/07 10:28 Order name: IV Saline Lock - Large Bore; Complete Time: 10:53 ms3 02/07 10:28 Order name: EKG; Complete Time: 10:28 ms3 02/07 14:31 Order name: CONS Physician Consult EDMS 02/07 14:33 Order name: Regular EDMS 02/07 14:33 Order name: Magnesium EDMS 02/07 14:33 Order name: T4 Free EDMS 02/07 14:33 Order name: T4 Free EDMS 02/07 14:33 Order name: Thyroid Stimulating Hormone EDMS 02/07 14:33 Order name: Thyroid Stimulating Hormone EDMS 02/07 10:28 Order name: Labs collected and sent; Complete Time: 10:53 ms3 02/07 10:28 Order name: O2 Per Protocol; Complete Time: 10:53 ms3 02/07 10:28 Order name: O2 Sat Monitoring; Complete Time: 10:53 ms3 02/07 10:28 Order name: Urine Dipstick-Ancillary (obtain specimen); Complete Time: 10:54 ms3 02/07 10:28 Order name: Urine Test (obtain specimen); Complete Time: 10:54 ms3 02/07 10:28 Order name: IV Saline Lock; Complete Time: 10:53 ms3 EC:04 Rate is 110 beats/min. Rhythm is regular. QRS [place] is Normal. Clinical impression: ms3 Sinus tachycardia. Interpreted by me. Administered Medications: 13:00 Drug: SOLU-Medrol (methylPREDNISolone sodium succinate) 125 mg Route: IM; Site: Other; lr4 14:43 Follow up: Response: Marked relief of symptoms lr4 13:00 Drug: Albuterol 5 mg Route: Inhalation; lr4 14:42 Follow up: Response: Marked relief of symptoms lr4 13:00 Drug: AtroVENT (ipratropium) Aerosol 0.5 mg Route: Inhalation; lr4 14:42 Follow up: Response: Marked relief of symptoms lr4 Disposition Summary: 02/07/22 13:23 Hospitalization Ordered Hospitalization Status: Inpatient Admission ms3 Provider: Angus Bee ms3 Condition: Stable ms3 Problem: an acute exacerbation ms3 Symptoms: are unchanged ms3 Bed/Room Type: Standard ms3 Location: Telemetry/MedSurg (Inpatient)(02/08/22 06:32) eb1 Room Assignment: 405(02/08/22 06:32) eb1 Diagnosis - COPD/ Chronic obstructive pulmonary disease with (acute) exacerbation ms3 - Acute respiratory failure with hypoxia ms3 - Leukocytosis ms3 Forms: - Medication Reconciliation Form ms3 - SBAR form ms3 Signatures: Dispatcher [employer] EDMS Roseanne Samano Audri, RN RN aa5 Jerad Hines RN RN jd3 Bebe Hanna RN RN eb1 Gualberto Maya DO DO ms3 Joanna Gutierres RN RN lr4 Corrections: (The following items were deleted from the chart) 10:31 10:29 Home Meds: Paxil Oral; jd3 jd3 17:27 13:23 ms3 aa5 18:09 13:23 Telemetry/MedSurg (Inpatient) ms3 bd 18:09 17:27 214 aa5 bd 02/08 06:32 0316 18:09 [facility] ER HOLD bd eb1 02/08 06:32 02/07 18:09 ERHOLD- bd eb1
--- NOTE | 2022-02-07 13:23 | ER ---
Nurse's Notes [facility] Name: Fariba Payne Age: 51 yrs Sex: Female : 1970 Arrival Date: 02/07/2022 Time: 10:14 Bed 30 Private MD: Diagnosis: COPD/ Chronic obstructive pulmonary disease with (acute) exacerbation;Acute respiratory failure with hypoxia;Leukocytosis Presentation: 02/07 10:28 Chief complaint: Patient states: "i feel like I might have pneumonia. I am having jd3 shortness of breath, cough, and it feels like I can't breath.". Coronavirus screen: cough unrelated to allergies, difficulty breathing, shortness of breath, Client presents with at least one sign or symptom that may indicate coronavirus-19. Standard/surgical mask placed on the client. Provider contacted for isolation considerations. Ebola Screen: No symptoms or risks identified at this time. Initial Sepsis Screen: Does the patient meet any 2 criteria? No. Patient's initial sepsis screen is negative. Does the patient have a suspected source of infection? No. Patient's initial sepsis screen is negative. Risk Assessment: Do you want to hurt yourself or someone else? Patient reports no desire to harm self or others. Onset of symptoms was February 07, 2022. 10:28 Method Of Arrival: Ambulatory jd3 10:28 Acuity: EMPERATRIZ 2 jd3 Triage Assessment: 14:45 Respiratory: Onset: The symptoms/episode began/occurred gradually, the patient has lr4 moderate shortness of breath. 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 - Social history:: Smoking status: Patient reports the use of cigarette tobacco products, smokes one pack cigarettes per day. Screenin:41 Abuse screen: Denies threats or abuse. Denies injuries from another. Nutritional ph screening: No deficits noted. Tuberculosis screening: No symptoms or risk factors identified. Fall Risk None identified. Assessment: 11:00 General: Appears in no apparent distress. comfortable, Behavior is calm, cooperative, ph appropriate for age, Reports feeling ill for 2-3 days, Denies fever. Pain: Denies pain. Neuro: Level of Consciousness is awake, alert, obeys commands, Oriented to person, place, time, situation. Cardiovascular: Reports fatigue, shortness of breath, Capillary refill is sluggish Patient's skin is warm and dry. Rhythm is sinus tachycardia. Respiratory: Reports shortness of breath at rest cough that is productive, Airway is patent Respiratory effort is even, unlabored, Respiratory pattern is tachypnea Breath sounds are coarse bilaterally. GI: No signs and/or symptoms were reported involving the gastrointestinal system. Patient currently denies diarrhea, nausea, vomiting. Derm: Skin is intact, is healthy with good turgor, Skin is pink, warm \\T\\ dry. Musculoskeletal: Circulation, motion, and sensation intact. Range of motion: intact in all extremities. 11:45 Reassessment: Patient appears in no apparent distress at this time. Patient and/or ph family updated on plan of care and expected duration. Pain level reassessed. pt resting comfortably, Spo2 maintained >95% on 3L NC. 18:09 General: Attempted to call report, was told by [facility] that they are canceling the lr4 admits as they dont have staff on the floor, stenographer secretary and charge notified.. 21:06 Reassessment: See [facility] for further charting. vc1 Vital Signs: 10:25 Pulse Ox 85% on R/A; jd3 10:29 BP 114 / 63; Pulse 116; Resp 22 S; Temp 99.0(TE); Pulse Ox 95% on 3 lpm NC; Weight jd3 77.11 kg (R); Height 5 ft. 6 in. (167.64 cm) (R); Pain 5/10; 11:30 BP 104 / 85; Pulse 104; Resp 26; Pulse Ox 98% on 3 lpm NC; ph 12:40 BP 113 / 70; Pulse 101; Resp 20; Pulse Ox 98% on R/A; lr4 14:43 BP 110 / 77; Pulse 91; Resp 20; Pulse Ox 98% on 4 lpm NC; lr4 17:19 BP 118 / 63; Pulse 87; Resp 20; Pulse Ox 96% on 4 lpm NC; lr4 18:10 BP 107 / 50; Pulse 82; Resp 20; Temp 98.8(O); Pulse Ox 95% ; lr4 10:29 Body Mass Index 27.44 (77.11 kg, 167.64 cm) jd3 Vitals: 11:30 Cardiac Rhythm Assessment Sinus tach. ph ED Course: 10:14 Patient arrived in ED. ds1 10:17 Gualberto Maya DO is Attending Physician. ms3 10:29 Triage completed. jd3 10:30 Inserted saline lock: 20 gauge in left antecubital area, using aseptic technique. Blood ww collected. 10:32 Arm band placed on. jd3 10:53 Linda Rodas, RN is Primary Nurse. ph 10:53 Patient has correct armband on for positive identification. Bed in low position. Call ww light in reach. Side rails up X2. teletypesetter monitor on. Pulse ox on. NIBP on. 10:54 Flu and/or RSV swab sent to lab. ww 11:24 Chest Single View XRAY In Process Unspecified. EDMS 11:25 X-ray completed. Portable x-ray completed in exam room. md1 11:42 No provider procedures requiring assistance completed. ph 13:13 Inserted saline lock: 20 gauge in right antecubital area, using aseptic technique. lr4 13:14 IV discontinued, LAC infiltrated. lr4 13:22 Angus Bee MD is Hospitalizing Provider. ms3 16:51 Diet: Patient given a heart healthy meal tray. mh5 19:12 Primary Nurse role handed off by Linda Rodas, CROW mw2 21:06 Camilla Yan RN is Primary Nurse. vc1 Administered Medications: 13:00 Drug: SOLU-Medrol (methylPREDNISolone sodium succinate) 125 mg Route: IM; Site: Other; lr4 14:43 Follow up: Response: Marked relief of symptoms lr4 13:00 Drug: Albuterol 5 mg Route: Inhalation; lr4 14:42 Follow up: Response: Marked relief of symptoms lr4 13:00 Drug: AtroVENT (ipratropium) Aerosol 0.5 mg Route: Inhalation; lr4 14:42 Follow up: Response: Marked relief of symptoms lr4 Outcome: 13:23 Decision to Hospitalize by Provider. ms3 14:44 Condition: stable lr4 14:44 Instructed on the need for admit. 18:11 Admitted to lr4 03 07:44 Patient left the ED. plaza Signatures: Dispatcher [employer] EDNY Sallie Villegas 1 Linda Rodas RN RN Shara Saab [facility] Jerad Hines RN RN jd3 Baylee Lagunas 2 Nevaeh Simmons md1 Gualberto Maya, DO ms3 Veronica Washington RN RN Carmita Reardon RN RN Camilla Yan RN RN vc1 Joanna Gutierres RN RN lr4 Corrections: (The following items were deleted from the chart) 02/07 10:31 10:29 Home Meds: Paxil Oral; jd3 jd3
[2022-02-07] MEDS ORDERED: ACETAMINOPHEN 500 MG TAB PO PRN (14:30)
[2022-02-07] MEDS ORDERED: ONDANSETRON 4 MG/2 ML VIAL IV PRN (14:30)
--- NOTE | 2022-02-07 14:34 | P.HP ---
Certification for Inpatient Patient admitted to: Inpatient With expected LOS: >2 Midnights Practitioner: I am a practitioner with admitting privileges, knowledge of patient current condition, hospital course, and medical plan of care. Services: Services provided to patient in accordance with Admission requirements found in Title 42 Section 412.3 of the Code of Federal Regulations Patient History Date of Service: 02/07/22 Reason for admission: COPD exacerbation, hypoxia History of Present Illness: 51-year-old female, PMH: COPD, schizoaffective disorder, bipolar disorder, hyp othyroidism, insomnia Presents to ED with 4 days of progressively worsening shortness of breath and wheezing. The symptoms significantly worsened yesterday. She reports she has been taking her inhalers as prescribed, with no relief from her albuterol inhaler. She states she has been prescribed prednisone daily, however takes as needed. Also endorses some feeling of racing heart when she lays down and has difficulty breathing. Feels her chest is congested with some thick mucus. Reports has not been taking her thyroid medication due to scheduling and cost for 2 months now. In the ED, she is noted to have a mild leukocytosis, chest x-ray without any acute infectious process, afebrile, hypoxic down to the low 80% on room air. Patient does not use oxygen at home. She was given nebulizers and steroids with minimal improvement, still remained hypoxic. ED physician requests admission for further management. Allergies morphine Allergy (Severe, Verified 02/06/18 12:06) Anaphylaxis haloperidol [From Haldol] Allergy (Unverified 02/14/18 18:28) Unknown Home Medications: Albuterol Sulfate [Proair Hfa] 8.5 gm IH TID PRN #1 [email or web address] 02/10/18 Amox/Clavulanate [Augmentin 875-125 Tab*] 875 mg PO BID #10 tab 02/10/18 Fluticasone/Salmeterol [Airduo Respiclick 113-14 Mcg] 1 each IH BID #1 aer.pow.ba 02/10/18 Paroxetine HCl [Paxil] 40 mg PO DAILY #30 tablet 02/10/18 predniSONE [Deltasone*] 10 mg PO SEECOM #15 tab 02/10/18 risperiDONE [Risperdal 1 mg tab*] 2 mg PO BID #60 tab 02/10/18 - Past Medical/Surgical History Diabetic: No -: hypothyroidism -: depression -: bipolar -: COPD -: hypothyroid -: asthma -: radiation to thyroid - Family History Family History: Reviewed- Non-Contributory - Family History Father Notes: patient intubated/sedated - Social History Smoking Status: Current every day smoker (1 pack/day) Alcohol use: No CD- Drugs: No Caffeine use: Yes Place of Residence: Home Review of Systems 10-point ROS is otherwise unremarkable Physical Examination - Physical Exam General: Alert, Oriented x3, Mild distress HEENT: EOMI, Sclerae nonicteric Respiratory: Expiratory wheezes, Rhonchi/gurgles (Bilateral) Cardiovascular: No edema, Regular rate/rhythm Gastrointestinal: Soft and benign, Non-distended, No tenderness Musculoskeletal: No erythema, No tenderness Integumentary: No rashes, No significant lesion Neurological: Normal speech, Normal strength at 5/5 x4 extr, Normal affect - Studies Laboratory Data (last 24 hrs) 02/07/22 10:48: PT 11.0, INR 1.00, APTT 42.3 H 02/07/22 10:48: Sodium 138, Potassium 3.8, BUN 11, Creatinine 0.89, Glucose 119 H, Total Bilirubin 0.2, AST 6 L, ALT 13, Alkaline Phosphatase 95 02/07/22 10:48: WBC 12.20 H, Hgb 14.8, Hct 46.1 H, Plt Count 359 Assessment and Plan - Advance Directives Does patient have a Living Will: No Does patient have a Durable POA for Healthcare: No Physician Review Additional Text: Problem list Acute hypoxemic respiratory failure secondary to acute on chronic COPD exacerbation Bipolar disorder Schizoaffective disorder Hypothyroidism Nicotine dependence Patient hypoxic and tachypneic in the ED, minimal improvement with nebs and steroids Admit patient to med/surg IV Solu-Medrol, nebulizers Patient advised to have her Trelegy inhaler brought in from home Pulmonology consulted Azithromycin for anti-inflammatory properties Wean oxygen as tolerated Patient states she will have family bring in her home medications so that we can confirm and restart as appropriate VTE: Lovenox Code: Full Dispo: Anticipate DC home in 2 days Time Spent Managing Pts Care (In Minutes): 70
[2022-02-07] MEDS ORDERED: AZITHROMYCIN IV 500 MG in NA CHLORIDE 0.9% 250 ML IVPB ONE (15:00)
[2022-02-07] MEDS: IPRATROPIUM BROM 0.5MG/2.5ML NEB SCH (20:05)
[2022-02-07] MEDS ORDERED: NA CHLORIDE 0.9% 500 ML ONE (21:54)
[2022-02-07] MEDS ORDERED: AZITHROMYCIN 500 MG INJ IVPB ONE (21:54)
[2022-02-07] MEDS ORDERED: METHYLPREDNISOLONE 40 MG INJ ONE (21:54)
[2022-02-07] MEDS ORDERED: ENOXAPARIN 40 MG/0.4 ML SQ ONE (21:54)
[2022-02-07] MEDS: METHYLPREDNISOLONE 125 MG INJ IV SCH ×2 (22:06→23:00)
[2022-02-07] MEDS: ENOXAPARIN 40 MG/0.4 ML SQ SCH (22:06)
[2022-02-07 23:12] VITALS: BMI 27.4
[2022-02-08] MEDS ORDERED: IPRATROPIUM BROM 0.5MG/2.5ML ONE (00:40)
[2022-02-08] MEDS: IPRATROPIUM BROM 0.5MG/2.5ML NEB SCH ×4 (01:50→19:33)
[2022-02-08 05:13] LABS: Absolute Lymphocytes (CBC) 0.7 K/uL (0.7-4.9); Hematocrit 41.5 % (36.0-45.0); Lymphocytes % 7.8 % (15.3-44.8); MPV 7.2 fL (7.6-11.3); RBC Red Blood Cell Count 4.79 M/uL (3.86-4.86)
--- NOTE | 2022-02-08 06:30 | P.PN ---
Date of Service: 02/08/22 Subjective: Improving, breathing more comfortably, wheezing last Requiring 2-3 L nasal cannula ROS: 10 point ROS as noted above, otherwise negative Physical exam GEN: Alert, oriented, NAD HEENT: Normal conjunctiva, sclera anicteric CV: Regular rate and rhythm, no edema Pulm: Nonlabored respirations on 2 L nasal cannula, bilateral wheeze ABD: Soft, nontender, nondistended Neuro: Normal speech, normal affect Problem list Acute hypoxemic respiratory failure secondary to acute on chronic COPD exacerbation Bipolar disorder Schizoaffective disorder Hypothyroidism Nicotine dependence Improving Continue nebs, continue steroids, azithromycin for anti-inflammatory properties Patient brought her Trelegy inhaler from home, continue Continue home medications Pulmonology consulted VTE: Lovenox Code: Full Dispo: Anticipate DC home in 1-2 days Time Spent Managing Pts Care (In Minutes): 35 wean O2
[2022-02-08] MEDS ORDERED: METHYLPREDNISOLONE 40 MG INJ ONE (06:34)
[2022-02-08] MEDS: METHYLPREDNISOLONE 125 MG INJ IV SCH ×2 (06:45→14:21)
[2022-02-08 07:50] LABS: BUN Blood Urea Nitrogen 15 mg/dL (7-18); Bicarbonate 35 mmol/L (21-32); Glucose Level 110 mg/dL (74-106); Magnesium 2.2 mg/dL (1.8-2.4); Potassium 4.8 mmol/L (3.5-5.1); Sodium Level 139 mmol/L (136-145)
[2022-02-08] MEDS ORDERED: INFLUENZA VACCINE (for 6+ mo) 0.5 ML DOSE IMVAC ONE (08:00)
[2022-02-08] MEDS: AZITHROMYCIN IV 500 MG in NA CHLORIDE 0.9% 250 ML IVPB SCH (09:11)
[2022-02-08] MEDS: ENOXAPARIN 40 MG/0.4 ML SQ SCH (09:11)
[2022-02-08] MEDS: LITHIUM CARBONATE 300 MG PO SCH (14:18)
[2022-02-08] MEDS: Fluticasone/Umeclidin/Vilanter [Trelegy Ellipta 100-62.5-25] Blst.W.Dev IH SCH (14:18)
[2022-02-08] MEDS: ALBUTEROL 2.5 MG/3 ML NEB SOL NEB PRN (19:33)
[2022-02-08] MEDS: RISPERIDONE 1 MG TABLET PO SCH (20:55)
[2022-02-08] MEDS: predniSONE 20 MG TAB PO SCH (20:56)
[2022-02-08] MEDS ORDERED: MIRTAZAPINE 15 MG TAB PO SCH (21:00)
[2022-02-08] MEDS ORDERED: AMITRIPTYLINE 25 MG TAB PO SCH (21:00)
[2022-02-09] MEDS: ALBUTEROL 2.5 MG/3 ML NEB SOL NEB PRN ×2 (01:17→08:30)
[2022-02-09] MEDS: IPRATROPIUM BROM 0.5MG/2.5ML NEB SCH ×3 (01:17→14:45)
[2022-02-09 04:29] LABS: Potassium 4.1 mmol/L (3.5-5.1)
[2022-02-09] MEDS ORDERED: FAMOTIDINE 20 MG/2 ML VIAL IV ONE (04:35)
--- NOTE | 2022-02-09 06:29 | P.PN ---
Date of Service: 02/09/22 Subjective: improving, on 1-2 LNC desaturates to 85% on RA still with SOB with ambulation ROS: 10 point ROS as noted above, otherwise negative Physical exam GEN: Alert, oriented, NAD HEENT: Normal conjunctiva, sclera anicteric CV: Regular rate and rhythm, no edema Pulm: Nonlabored respirations on 2 L nasal cannula, bilateral wheeze ABD: Soft, nontender, nondistended Neuro: Normal speech, normal affect Problem list Acute hypoxemic respiratory failure secondary to acute on chronic COPD exacerbation Bipolar disorder Schizoaffective disorder Hypothyroidism Nicotine dependence Improving Continue nebs, continue steroids, azithromycin for anti-inflammatory properties Patient brought her Trelegy inhaler from home, continue Continue home medications Pulmonology consulted, added etienne VTE: Lovenox Code: Full Dispo: home, with home O2 social service consulted Time Spent Managing Pts Care (In Minutes): 35
[2022-02-09] MEDS: Fluticasone/Umeclidin/Vilanter [Trelegy Ellipta 100-62.5-25] Blst.W.Dev IH SCH (07:58)
[2022-02-09] MEDS: predniSONE 20 MG TAB PO SCH (07:59)
[2022-02-09] MEDS: ENOXAPARIN 40 MG/0.4 ML SQ SCH (07:59)
[2022-02-09] MEDS: AZITHROMYCIN IV 500 MG in NA CHLORIDE 0.9% 250 ML IVPB SCH (07:59)
[2022-02-09] MEDS ORDERED: VENLAFAXINE HCL XR 75 MG CAP PO SCH (08:00)
[2022-02-09] MEDS: LITHIUM CARBONATE 300 MG PO SCH ×2 (08:00→16:04)
[2022-02-09] MEDS: RISPERIDONE 1 MG TABLET PO SCH (09:21)
[2022-02-09 09:33] VITALS: O2SAT 93
--- NOTE | 2022-02-09 10:56 | P.CNS ---
Date of Consult: 02/09/22 Reason for Consult: COPD exacerbation Chief Complaint: COPD exacerbation, hypoxia History of Present Illness: Patient is 51 years of age schizoaffective disorder history of COPD admitted with 4 days of progressive shortness of breath and does take trilogy at home feeling a little better Allergies morphine Allergy (Severe, Verified 02/06/18 12:06) Anaphylaxis haloperidol [From Haldol] Allergy (Unknown, Verified 02/08/22 09:11) Unknown Home Medications: risperiDONE [Risperdal 1 mg tab*] 2 mg PO BID #60 tab 02/10/18 Albuterol Sulfate [Proair Hfa] 2 puff IH QID PRN 02/07/22 Amitriptyline [Elavil] 25 mg PO BEDTIME 02/07/22 Fluticasone/Umeclidin/Vilanter [Trelegy Ellipta 100-62.5-25] 1 puff IH DAILY 02/07/22 [place] Carbonate [[place] Carbonate ER] 300 mg PO BID* 02/07/22 Mirtazapine [Remeron] 30 mg PO BEDTIME 02/07/22 Venlafaxine HCl [Venlafaxine HCl ER] 75 mg PO BREAKFAST 02/07/22 - Past Medical/Surgical History Diabetic: No -: hypothyroidism -: depression -: bipolar -: COPD -: hypothyroid -: asthma -: Schizoaffective -: Insomnia -: radiation to thyroid - Family History Father Notes: patient intubated/sedated - Social History Smoking Status: Current every day smoker Alcohol use: No CD- Drugs: No Caffeine use: Yes Place of Residence: Home Review of Systems 10-point ROS is otherwise unremarkable General: Weakness Respiratory: Shortness of Breath Physical Examination Temp Pulse Resp BP Pulse Ox 98.8 F 82 16 124/69 88 L 02/09/22 08:00 02/09/22 08:00 02/09/22 08:00 02/09/22 08:00 02/09/22 08:00 General: Alert, In no apparent distress, Oriented x3 Respiratory: Clear to auscultation bilaterally, Diminished, Expiratory wheezes Cardiovascular: No edema, Regular rate/rhythm Gastrointestinal: Normal bowel sounds, Soft and benign - Problems (1) COPD exacerbation Current Visit: Yes Status: Acute Plan: Patient is 51 years of age admitted with COPD exacerbation doing somewhat better patient is compliant with her inhalers at home chest x-ray shows COPD changes set up for home O2 change to p.o. levofloxacin prednisone plan for discharge blood cultures negative
[2022-02-09] MEDS ORDERED: levoFLOXacin 750 MG TAB PO SCH (11:00)
[2022-02-09] MEDS ORDERED: ALBUTEROL 2.5 MG/3 ML NEB SOL NEB SCH (14:00)
[2022-02-09 16:10] VITALS: BP 117/59; TEMP 99.9
--- NOTE | 2022-02-09 18:21 | P.DS ---
Admission Date: 02/07/22 Discharge Date: 02/09/22 Disposition: ROUTINE DISCHARGE Discharge Condition: GOOD Reason for Admission: COPD exacerbation, hypoxia Consultations: Pulmonology Procedures: Problem list Acute hypoxemic respiratory failure secondary to acute on chronic COPD exacerbation Bipolar disorder Schizoaffective disorder Hypothyroidism Nicotine dependence Brief History of Present Illness: 51-year-old female, PMH: COPD, schizoaffective disorder, bipolar disorder, hypothyroidism, insomnia Presents to ED with 4 days of progressively worsening shortness of breath and wheezing. The symptoms significantly worsened yesterday. She reports she has been taking her inhalers as prescribed, with no relief from her albuterol inhaler. She states she has been prescribed prednisone daily, however takes as needed. Also endorses some feeling of racing heart when she lays down and has difficulty breathing. Feels her chest is congested with some thick mucus. Reports has not been taking her thyroid medication due to scheduling and cost for 2 months now. In the ED, she is noted to have a mild leukocytosis, chest x-ray without any acute infectious process, afebrile, hypoxic down to the low 80% on room air. Patient does not use oxygen at home. She was given nebulizers and steroids with minimal improvement, still remained hypoxic. ED physician requests admission for further management. Hospital Course: Patient was found to be in an acute COPD exacerbation. Improved with oxygen supplementation, nebulizer treatments, steroids. Pulmonology was consulted, added Levaquin. She continued to improve, still required 1-2 L nasal cannula. She was deemed stable for discharge home with home oxygen Follow-up with PCP within 1 week Follow-up with pulmonology in 1-2 weeks. Vital Signs/Physical Exam: Temp Pulse Resp BP Pulse Ox 99.9 F 92 H 22 H 117/59 L 94 02/09/22 16:08 02/09/22 16:08 02/09/22 16:08 02/09/22 16:08 02/09/22 16:08 Physical exam GEN: Alert, oriented, NAD HEENT: Normal conjunctiva, sclera anicteric CV: Regular rate and rhythm, no edema Pulm: Nonlabored respirations on 2 L nasal cannula, mild bilateral wheeze ABD: Soft, nontender, nondistended Neuro: Normal speech, normal affect Laboratory Data at Discharge: WBC 8.80 K/uL (4.3-10.9) D 02/08/22 04:29 Hgb 13.2 g/dL (12.0-15.0) 02/08/22 04:29 Hct 41.5 % (36.0-45.0) 02/08/22 04:29 Plt Count 303 K/uL (152-406) 02/08/22 04:29 PT 11.0 SECONDS (9.5-12.5) 02/07/22 10:48 INR 1.00 02/07/22 10:48 APTT 42.3 SECONDS (24.3-36.9) H 02/07/22 10:48 Sodium 141 mmol/L (136-145) 02/09/22 03:45 Potassium 4.1 mmol/L (3.5-5.1) 02/09/22 03:45 BUN 18 mg/dL (7-18) 02/09/22 03:45 Creatinine 0.72 mg/dL (0.55-1.3) 02/09/22 03:45 Glucose 112 mg/dL (74-106) H 02/09/22 03:45 Magnesium 2.2 mg/dL (1.8-2.4) 02/08/22 04:29 Total Bilirubin 0.2 mg/dL (0.2-1.0) 02/07/22 10:48 AST 6 U/L (15-37) L 02/07/22 10:48 ALT 13 U/L (12-78) 02/07/22 10:48 Alkaline Phosphatase 95 U/L (45-117) 02/07/22 10:48 Home Medications: risperiDONE [Risperdal 1 mg tab*] 2 mg PO BID #60 tab 02/10/18 Albuterol Sulfate [Proair Hfa] 2 puff IH QID PRN 02/07/22 Amitriptyline [Elavil*] 25 mg PO BEDTIME 02/07/22 Fluticasone/Umeclidin/Vilanter [Trelegy Ellipta 100-62.5-25] 1 puff IH DAILY Carnuel Carbonate [Carnuel Carbonate ER] 300 mg PO BID* 02/07/22 Mirtazapine [Remeron] 30 mg PO BEDTIME 02/07/22 Venlafaxine HCl [Venlafaxine HCl ER] 75 mg PO BREAKFAST 02/07/22 levoFLOXacin [Levaquin*] 750 mg PO DAILY 7 Days #7 tab 02/09/22 predniSONE [Prednisone*] 20 mg PO SEECOM 8 Days #12 tab 02/09/22 New Medications: levoFLOXacin [Levaquin*] 750 mg PO DAILY 7 Days #7 tab predniSONE [Prednisone*] 20 mg PO SEECOM 8 Days #12 tab Physician Discharge Instructions: Patient was found to be in an acute COPD exacerbation. Improved with oxygen supplementation, nebulizer treatments, steroids. Pulmonology was consulted, added Levaquin. She continued to improve, still required 1-2 L nasal cannula. She was deemed stable for discharge home with home oxygen Follow-up with PCP within 1 week Follow-up with pulmonology in 1-2 weeks. Diet: Regular Activity: Ad migel Followup: Ishmael Black MD [ACTIVE - CAN ADMIT] - 1-2 Weeks (call for an apt.) Forest Emmanuel MD [Primary Care Provider] - 1 Week (call for an apt) Time spent managing pt's care (in minutes): 40
--- NOTE | 2022-02-12 08:37 | EKG ---
Test Date: 2022-02-07 Test Time: 11:04:18 [facility] [place]: PH MEASUREMENT RESULTS: Intervals: Rate: 110 HI: 130 QRSD: 72 QT: 314 QTc: 424 [place]: P: 71 HI: 130 QRS: -73 T: 77 INTERPRETIVE STATEMENTS: Sinus tachycardia Indeterminate axis Septal infarct, age undetermined Abnormal ECG Compared to ECG 02/13/2018 14:57:13 Indeterminate axis now present Myocardial infarct finding now present Electronically Signed On 02-12-22 08:24:52 CDT by Mono Cox
== END 2022-02-09 19:19 | disposition home or self-care (01) | DRG 190 ==
LOC: ER 10:11 → ERHOLD 14:30 → 4TH 02-08 07:28
PROVIDERS: ADMIT Hospitalist; ATTEND Hospitalist
DX: J44.1 Chronic obstructive pulmonary disease with (acute) exacerbation (principal); J96.01 Acute respiratory failure with hypoxia; F25.0 Schizoaffective disorder, bipolar type; E03.9 Hypothyroidism, unspecified; F17.210 Nicotine dependence, cigarettes, uncomplicated; G47.00 Insomnia, unspecified; Z20.822 Contact with and (suspected) exposure to COVID-19
CPT/HCPCS: 0240U; 36415; 71045; 80048; 80053; 83605; 83735; 84439; 84443; 84484; 85025; 85610; 85730; 87040; 93005; 94760; 96372; 99285; J0456; J1650; J2405; J2920; J2930; J7040; J7050; J7512

== ENCOUNTER 2023-05-01 06:46 | Day surgery (SDC) | payer OTHER ==
[2023-04-30 11:54] LABS: Hematocrit 36.4 % (36.0-45.0); Lymphocytes % 34.3 % (15.3-44.8); MCV 76.9 fL (80-100); MPV 7.5 fL (7.6-11.3); RBC Red Blood Cell Count 4.74 M/uL (3.86-4.86)
[2023-04-30 12:08] LABS: ALT/SGPT 15 U/L (13-56); AST/SGOT 13 U/L (15-37); Albumin 3.1 g/dL (3.4-5.0); Alkaline Phosphatase 113 U/L (45-117); BUN Blood Urea Nitrogen 6 mg/dL (7-18); Bicarbonate 29 mEq/L (21-32); Bilirubin Total 0.2 mg/dL (0.2-1.0); Glomerular Filtration Rate 75 ml/min (=/>90); Glucose Level 85 mg/dL (74-106); Lipase 23 U/L (13-75); Potassium 3.3 mEq/L (3.5-5.1); Protein, Total 7.5 g/dL (6.4-8.2); Sodium Level 141 mEq/L (136-145)
[2023-04-30 12:09] LABS: Bilirubin Direct < 0.1 mg/dL (0-0.2); Bilirubin Indirect, Calculated ND mg/dL (0.2-0.8)
--- NOTE | 2023-04-30 12:11 | RAD REPORT ---
EXAM DESCRIPTION: [facility]04/30/2023 12:01 pm CLINICAL HISTORY: PRE-OP. History of COPD and smoking COMPARISON: Chest Single View dated 02/07/2022; Chest Pa And Lat (2 Views) dated 08/07/2018; Chest Sin gle View dated 02/12/2018; Chest Single View dated 02/08/2018 TECHNIQUE: PA and lateral views of the chest. FINDINGS: The lungs are clear. Diffuse hyperinflation suggestive of COPD. No pneumothorax or effusi on. The cardiomediastinal contours are unremarkable. IMPRESSION: No acute cardiopulmonary process.
[2023-05-01] MEDS ORDERED: Ringers Lactate 1,000 ML IV ONE (07:12)
--- NOTE | 2023-05-01 07:18 | EKG ---
Test Date: 2023-04-30 Test Time: 11:44:53 [employer] Associate: EVA MEASUREMENT RESULTS: Intervals: Rate: 81 NM: 158 QRSD: 90 QT: 382 QTc: 443 [place]: P: 71 NM: 158 QRS: 59 T: 78 INTERPRETIVE STATEMENTS: Normal sinus rhythm Nonspecific ST and T wave abnormality Abnormal ECG Compared to ECG 02/07/2022 11:04:18 ST (T wave) deviation now present Sinus tachycardia no longer present Indeterminate axis no longer present Myocardial infarct finding no longer present Electronically Signed On 05-01-23 07:14:13 CDT by Mono Cox
[2023-05-01] MEDS ORDERED: dexAMETHasone 10 MG/ML VIAL ONE (07:22)
[2023-05-01] MEDS ORDERED: KETOROLAC 30 MG/ML INJ ONE (07:22)
[2023-05-01] MEDS ORDERED: propofoL 200 MG/20 ML VIAL IV ONE (07:22)
[2023-05-01] MEDS ORDERED: FENTANYL CITR 100 MCG/2 ML ONE (07:22)
[2023-05-01] MEDS ORDERED: LIDOCAINE 2% MPF 5 ML VIAL ONE (07:22)
[2023-05-01] MEDS ORDERED: ROCURONIUM 50 MG/5 ML VIAL IV ONE (07:22)
[2023-05-01] MEDS ORDERED: ONDANSETRON 4 MG/2 ML VIAL ONE (07:23)
[2023-05-01] MEDS ORDERED: MIDAZOLAM HCL 2 MG/2 ML INJ ONE (07:23)
[2023-05-01] MEDS ORDERED: CEFOXITIN SODIUM 1 GM/VIAL ONE (07:45)
[2023-05-01] MEDS ORDERED: NEOSTIGMINE 1 MG/ML -10 ML VIAL ONE (09:08)
[2023-05-01] MEDS ORDERED: GLYCOPYRROLATE 0.2 MG/ML SYR ONE (09:08)
[2023-05-01] MEDS ORDERED: SUGAMMADEX SODIUM 200 MG/2 ML VIAL IV ONE (09:14)
[2023-05-01] MEDS ORDERED: Mastisol Adhesive Liq ONE (09:20)
--- NOTE | 2023-05-01 09:20 | P.BOP ---
Preoperative diagnosis: symptomatic cholelithiasis, acute cholecystitis Postoperative diagnosis: same Primary procedure: Laparoscopic cholecystectomy [employer] Supervisor: TANIA AYON (TUBING TESTER) Estimated blood loss: <10cc Specimen: gb Anesthesia: General Complications: None Transferred to: Recovery Room Condition: Good
[2023-05-01 09:59] VITALS: TEMP 97.2; O2SAT 94
[2023-05-01 10:23] VITALS: BP 116/66
--- NOTE | 2023-05-01 16:23 | DS ---
Date of Discharge: 05/01/2023 Diagnoses: Symptomatic cholelithiasis, acute cholecystitis, right upper quadrant abdominal pain. Procedure: Laparoscopic cholecystectomy. Disposition: Home. Activity: As tolerated. No heavy lifting. Plan: Follow up in my office in 1 week. Call for appointment at [phone]. Keep area dry for 48 nini rs, then may shower. Keep Steri-Strips intact. DEVONTE/SANDY Voice ID: [id number] Report ID: [id number]
--- NOTE | 2023-05-01 16:23 | OP ---
Date of Procedure: 05/01/2023 Surgeon: Tom Whitaker MD [employer]: Jackie Mcpherson. Preoperative Diagnoses: Symptomatic cholelithiasis, acute cholecystitis. Postoperative Diagnoses: Symptomatic cholelithiasis, acute cholecystitis. Procedure: Laparoscopic cholecystectomy. Estimated Blood Loss: Less than 10 mL. Specimen: Gallbladder. Anesthesia: General plus local. Complications: None. Indication: This is the case of a female, who comes to us with above diagnoses. Fully explained the benefits, alternatives, and risks of laparoscopic possible open cholecystectomy, which include, but not limited to infection, bleeding, damage to adjacent structures, anesthesia complication, choledoch olithiasis, bile leak, pancreatitis, VA, and even . She also understands this may not relieve a ny symptoms. She might need more than one surgical intervention. She understood, signed a consent. Procedure In Detail: The patient was brought to the operating room, placed in supine position. Anes thesia was done without complication. Abdominal area was prepped and draped in the usual sterile fas hion. Marcaine 0.5% was injected for local anesthetic followed by sharp incision of the skin in the periumbilical region. The incision was carried down to fascia, which was opened under direct vision. Peritoneum was encountered, opened under direct vision. Vicryl #1 placed inside the fascia. Hasso n trocar was carefully introduced. Pneumoperitoneum was obtained. I placed 3 more trocars, 5 mm eac h one of them, 1 in the epigastric area and 2 in the right upper quadrant using same technique, which was consisted of local anesthetic, sharp incision of the skin, and introduction of the trocars under direct vision. This allowed me to put a grasper in the fundus of the gallbladder, another grasper i n the infundibulum retracting the gallbladder in the inferolateral fashion, exposing the triangle of Calot, and obtaining critical view. Cystic duct and cystic artery were clearly isolated, freed circu mferentially and a connection between those and the gallbladder were clearly identified. I proceeded to ligate those by using at least 3 clips proximal, 1 clip distal, ligation in the middle. Same was done with the cystic artery. No bile leak. No bleeding. The gallbladder was removed from the live r using Bovie cauterizer and removed from the abdominal cavity using EndoCatch through the umbilical incision. The area was inspected once again. No bile leak. No bleeding. At that moment, I proceed ed to remove the trocars under direct vision. Deflated the pneumoperitoneum. Closed the fascia with #1 Vicryl. Irrigated subcutaneous tissue, closed that with 3-0 chromic and skin with 3-0 chromic. Steri-Strips placed over the area. Sponge count, instrument counts correct. The patient tolerated t he procedure well. The patient was sent to recovery in stable condition. DEVONTE/SANDY Voice ID: [id number] Report ID: [id number]
== END 2023-05-01 10:39 | disposition home or self-care (01) ==
LOC: OR 06:46
PROVIDERS: ATTEND Surgery
PROC: 0FT44ZZ Resection of Gallbladder, Percutaneous Endoscopic Approach (ICD-10-PCS; principal; 2023-05-01 08:30)
DX: K80.10 Calculus of gallbladder with chronic cholecystitis without obstruction (principal)
CPT/HCPCS: 93005; 85025; 80048; 36415; 80076; 88304; 83690; 71046; 47562; J2704; J2710; J2001; J2250; J3010; J1100; J0694; J2405; J7120

== ENCOUNTER 2023-05-29 12:51 | Emergency (ER) | payer OTHER ==
--- OUTSIDE RECORDS SUMMARY | 2023-05-29 12:55 | XMS REPORT | Continuity of Care Document ---
:1970 Author [facility] [address] [facility] [facility] [address] [place] [address] Care Team Providers Name Role Phone EVANGELISTA ALEXANDRA Primary Care Physician Unavailable PORSHA GODWIN Attending Clinician Unavailable Isaac Lizama Attending Clinician ERICA SMITH Attending Clinician Unavailable Porsha Godwin MD Attending Clinician Erica Ortiz Attending Clinician Alix Simpson Attending Clinician JONATHAN BROWNE Attending Clinician Unavailable Jonathan Eli Attending Clinician Wilbert Bernal Attending Clinician WILBERT COLEMAN Attending Clinician Unavailable Doctor Unassigned, [place] Attending Clinician Unavailable Pcp, Patient Does Not Have A Attending Clinician [phone] Radiology Attending Clinician Unavailable Veronica Mcarthur Attending Clinician Mckayla Tony Attending Clinician Unavailable EVANGELISTA ALEXANDRA M.D., Xi NAIDU Attending Clinician Unavailable ISAAC BROCK Admitting Clinician Unavailable Radiology Admitting Clinician Unavailable EVANGELISTA ALEXANDRA M.D., EVANGELISTA Admitting Clinician Unavail able Payers Payer Name Policy Type Policy Number Effective Date Expiration Date Shayy duarte [facility] [id number] 2023 00:00:00 PLUS Problems Condition Condition Condition Status Onset Resolution Last Treating Co mments Source Name Details Category Date Date Treatment Clinician Date 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 Medi ermelinda 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) Cervical Cervical Disease Active Unive rs high risk high risk 5-11 ity of human human 00:00: [place] papillomav papillomav 00 Me dical irus (HPV) irus (HPV) Br anch DNA test DNA test positive positive Post-menop Post-menop Disease Active U nivers ausal ausal 03-21 ity of bleeding bleeding 00:00: Medical Branch Well woman Well woman Disease Active U nivers exam exam 03-21 ity of 00:: Medical Branch Declined Declined Disease Active Unive rs smoking smoking 03-21 [place] of cessation cessation [place] Allergies, Adverse Reactions, Alerts Allergy Allergy Status Severity Reaction(s) Onset Inactive Treating Comm ents Source Name Type Date Date Clinician HALOPERI DRUG Active Hallucinates Un michelle DOL INGREDI 6-13 ity of LACTATE 00:00: Medical Branch Haloperi Propensi Active Hallucinatio Univers dol ty to ns 6-13 ity of Lactate adverse 00:00: [place] reaction 00 Medical s Branch MORPHINE DRUG Active Low Other-Cmnt Univ ers INGREDI - ity of 00:: Medical Branch Morphine Propensi Active Other - See Mental U nivers ty to comments 03-21 status ity of adverse 00:00: altered [place] reaction 00 Medical s to Branch drug NO KNOWN Drug Active Univers ALLERGIE Class ity of S [facility] Social History Social Habit Start Date Stop Date Quantity Comments Source History of tobacco Passive smoker Un iversity of use [facility] Alcohol intake 2023-05-07 2023-05-07 Ex-drinker University 00:00:00 00:00:00 (finding) [facility] Exposure to 2023-03-11 2023-03-21 Not sure University SARS-CoV-2 (event) 00:00:00 13:46:00 [facility] Tobacco use and 2023-03-21 2023-03-21 Smokeless tobacco Un iversity of exposure 00:00:00 00:00:00 non-user [facility] Cigarettes smoked 2023-03-21 2023-03-21 Univers ity of current (pack per 00:00:00 00:00:00 [facility] [facility] ) - Reported [place] Cigarette 2023-03-21 2023-03-21 University of pack-years 00:00:00 00:00:00 [facility] Alcohol Comment 2007-11-12 2007-11-12 occassional Universi ty of 00:00:00 00:00:00 [facility] Sex Ass[birth year] At [birth year] Universit y of 00:00:00 00:00:00 [facility] Smoking Status Start Date Stop Date Source Unknown if ever smoked [facility] Smokes tobacco daily 2023-03-21 00:00:00 Univers ity of [facility] Medications Ordered Filled Start Stop Current Ordering Indication Dosage Frequency Signature Comments Components Source Medication Medication Date Date Medication? Clinician (SIG) Name Name risperiDONE Yes 3mg Take 1 Univ ers 3 mg tablet 6-13 tablet by ity of 08:26: mouth in [address] and 1 tablet in the evening. venlafaxine Yes 150mg Take 1 Uni vers XR 150 mg 6-13 capsule by ity of 24 hr 08:26: mouth [place] capsule 13 daily with Medica l breakfast. Branch levothyroxi Yes 100ug Take 1 Uni vers ne 100 mcg 6-13 tablet by ity of tablet 08:26: mouth. [address] risperiDONE Yes 3mg Take 1 Univ ers 3 mg tablet 6-13 tablet by ity of 08:26: mouth in [address] and 1 tablet in the evening. venlafaxine 2023-0 Yes 150mg Take 1 Uni vers XR 150 mg 6-13 capsule by ity of 24 hr 08:26: mouth [place] capsule 13 daily with Medica l breakfast. Branch levothyroxi 2022-0 Yes 100ug Take 1 Uni vers ne 100 mcg 6-13 tablet by ity of tablet 08:26: mouth. [address] risperiDONE 3-0 Yes 3mg Take 1 Univ ers 3 mg tablet 6-13 tablet by ity of 08:26: mouth in [place] [address] the [facility] Branch and 1 tablet in the evening. venlafaxine 2022-0 Yes 150mg Take 1 Uni vers XR 150 mg 6-13 capsule by ity of 24 hr 08:26: mouth [place] capsule 13 daily with Medica l breakfast. Branch levothyroxi 2022-0 Yes 100ug Take 1 Uni vers ne 100 mcg 6-13 tablet by ity of tablet 08:26: mouth. [address] risperiDONE 2022-0 Yes 3mg Take 1 Univ ers 3 mg tablet 6-13 tablet by ity of 08:26: mouth in [place] [address] the [facility] and 1 tablet in the evening. venlafaxine 2022-0 Yes 150mg Take 1 Uni vers XR 150 mg 6-13 capsule by ity of 24 hr 08:26: mouth [place] capsule 13 daily with Medica l breakfast. Branch levothyroxi 2022-0 Yes 100ug Take 1 Uni vers ne 100 mcg 6-13 tablet by ity of tablet 08:26: mouth. [address] ondansetron 2022-0 2022- No 4mg 4 mg, Univ ers (ZOFRAN-ODT 04-05-12 Oral, ity of ) 18:00: 17:10 ONCE, 1 [place] disintegrat 00 :00 dose, On Medi ermelinda ing tablet Fri Branch 4 mg 04/05/23 at 1300, Routine dicyclomine 3-0 2022- No 20mg 20 mg, Uni vers (BENTYL) 04-05-12 Oral, ity of tablet 20 18:00: 17:10 ONCE, 1 [place] mg 00 :00 dose, On Medical Fri Branch 04/05/23 at 1300, Routine ondansetron 3-0 Yes [id number] 4mg Take 1 Univers 4 mg 5-12 tablet by ity of disintegrat 00:00: mouth [place] ing tablet 00 every 8 Medica l (eight) Branch hours as needed for Nausea and Vomiting (N/V). ondansetron 2023-0 Yes [id number] 4mg Take 1 Univers 4 mg 5-12 tablet by ity of disintegrat 00:00: mouth [place] ing tablet 00 every 8 Medica l (eight) Branch hours as needed for Nausea and Vomiting (N/V). ondansetron 2023-0 Yes [id number] 4mg Take 1 Univers 4 mg 5-12 tablet by ity of disintegrat 00:00: mouth [place] ing tablet 00 every 8 Medica l (eight) Branch hours as needed for Nausea and Vomiting (N/V). ondansetron 2023-0 Yes [id number] 4mg Take 1 Univers 4 mg 5-12 tablet by ity of disintegrat 00:00: mouth [place] ing tablet 00 every 8 Medica l (eight) Branch hours as needed for Nausea and Vomiting (N/V). ondansetron 2023-0 Yes [id number] 4mg Take 1 Univers 4 mg 5-12 tablet by ity of disintegrat 00:00: mouth [place] ing tablet 00 every 8 Medica l (eight) Branch hours as needed for Nausea and Vomiting (N/V). ondansetron 3-0 Yes [id number] 4mg Take 1 Univers 4 mg 5-12 tablet by ity of disintegrat 00:00: mouth [place] ing tablet 00 every 8 Medica l (eight) Branch hours as needed for Nausea and Vomiting (N/V). risperiDONE 2023-0 Yes 3mg Take 1 Univ ers (RISPERDAL) 4-27 tablet by ity of 3 mg tablet 14:04: mouth [place] 40 the Medical morning Branch and 1 tablet in the evening. venlafaxine 3-0 Yes 150mg Take 1 Uni vers XR 150 mg 4-27 capsule by ity of 24 hr 14:04: mouth [place] capsule 40 daily with Medica l breakfast. Branch levothyroxi 2023-0 Yes 100ug Take 1 Uni vers ne 100 mcg 4-27 tablet by ity of tablet 14:04: mouth. [address] risperiDONE 2023-0 Yes 3mg Take 1 Univ ers (RISPERDAL) 4-27 tablet by ity of 3 mg tablet 14:04: mouth [place] 40 the Medical morning Branch and 1 tablet in the evening. venlafaxine 2022-0 Yes 150mg Take 1 Uni vers XR 150 mg 4-27 capsule by ity of 24 hr 14:04: mouth [place] capsule 40 daily with Medica l breakfast. Branch levothyroxi 2022-0 Yes 100ug Take 1 Uni vers ne 100 mcg 4-27 tablet by ity of tablet 14:04: mouth. [address] risperiDONE 3-0 Yes 3mg Take 1 Univ ers (RISPERDAL) 4-27 tablet by ity of 3 mg tablet 14:04: mouth [place] 40 the Medical morning Branch and 1 tablet in the evening. venlafaxine 2022-0 Yes 150mg Take 1 Uni vers XR 150 mg 4-27 capsule by ity of 24 hr 14:04: mouth [place] capsule 40 daily with Medica l breakfast. Branch levothyroxi 2022-0 Yes 100ug Take 1 Uni vers ne 100 mcg 4-27 tablet by ity of tablet 14:04: mouth. [address] risperiDONE 2022-0 Yes 3mg Take 1 Univ ers (RISPERDAL) 4-27 tablet by ity of 3 mg tablet 14:04: [place] 40 the Medical morning Branch and 1 tablet in the evening. venlafaxine 2022-0 Yes 150mg Take 1 Uni vers XR 150 mg 4-27 capsule by ity of 24 hr 14:04: mouth [place] capsule 40 daily with Medica l breakfast. Branch levothyroxi 2022-0 Yes 100ug Take 1 Uni vers ne 100 mcg 4-27 tablet by ity of tablet 14:04: mouth. [address] risperiDONE 3-0 Yes 3mg Take 1 Univ ers (RISPERDAL) 4-27 tablet by ity of 3 mg tablet 14:04: [place] 40 the Medical morning Branch and 1 tablet in the evening. venlafaxine 2022-0 Yes 150mg Take 1 Uni vers XR 150 mg 4-27 capsule by ity of 24 hr 14:04: mouth [place] capsule 40 daily with Medica l breakfast. Branch levothyroxi 2022-0 Yes 100ug Take 1 Uni vers ne 100 mcg 4-27 tablet by ity of tablet 14:04: mouth. [address] VICODIN 2022-0 2022- No None Univers ORAL 3-28 - Entered ity of 03:27: 00:00 [place] 55 :00 Medical Branch CARISOPRODO 2022- No None Unive rs L ORAL 02-19 Entered ity of 03:27: 00:00 [place] 55 :00 Medical Branch VICODIN Yes None Univers ORAL 02-18 Entered ity of 20:17: [place] [address] Medical Branch CARISOPRODO Yes None Univer s L ORAL 02-18 Entered ity of 20:17: [address] Branch cyclobenzap Yes [id number] 5mg Take 1 Univers rine 5 mg 01-16 9107 tablet by ity o f tablet 00:00: mouth 3 00 (three) Medical times Branch daily. traMADOL Yes [id number] 50mg Take 1 Univers (ULTRAM) 50 01-16 9107 tablet by ity of mg tablet 00:00: mouth [place] 00 every 6 Medical (six) Branch hours as needed for Pain (scale 4-6). cyclobenzap 2022- No [id number] 5mg Take 1 Univers rine 5 mg 01-16 9107 tablet by ity of tablet 00:00: 00:00 mouth 3 [place] 00 :00 (three) Medical times Branch daily. traMADOL 2022- No [id number] 50mg Take 1 Univers (ULTRAM) 50 01-16 9107 tablet by it y of mg tablet 00:00: 00:00 mouth [place] 00 :00 every 6 Medical (six) Branch hours as needed for Pain (scale 4-6). Vital Signs Vital Name Observation Time Observation Value Comments Source Systolic blood 2023-05-07 13:26:00 104 mm[Hg] Univer sity of pressure [facility] Diastolic blood 2023-05-07 13:26:00 69 mm[Hg] Unive rsity of pressure [facility] Heart rate 2023-05-07 13:26:00 105 /min [facility] Body height 2023-05-07 13:26:00 167.6 cm [facility] Body weight 2023-05-07 13:26:00 87.091 kg [facility] BMI 2023-05-07 13:26:00 30.99 kg/m2 Universi [facility] Systolic blood 2023-04-05 18:00:00 116 mm[Hg] Univer sity of pressure [facility] Diastolic blood 2023-04-05 18:00:00 71 mm[Hg] Unive rsity of pressure [facility] Heart rate 2023-04-05 18:00:00 110 /min [facility] Oxygen saturation in 2023-04-05 18:00:00 97 /min [facility] Arterial blood by [facility] Pulse oximetry Branch Respiratory rate 2023-04-05 16:48:31 18 /min [facility] Body temperature 2023-04-05 16:48:31 37.28 Chela [facility] Body weight 2023-04-05 16:32:00 90.266 kg [facility] BMI 2023-04-05 16:32:00 32.12 kg/m2 [facility] Systolic blood 2023-03-21 18:47:00 139 mm[Hg] Univer sity of [facility] Diastolic blood 2023-03-21 18:47:00 77 mm[Hg] Unive rsity of [facility] Heart rate 2023-03-21 18:47:00 111 /min [facility] Body temperature 2023-03-21 18:47:00 36.61 Chela [facility] Respiratory rate 2023-03-21 18:47:00 16 /min [facility] Body height 2023-03-21 18:47:00 [facility] Body weight 2023-03-21 18:47:00 90.266 kg [facility] BMI 2023-03-21 18:47:00 32.12 kg/m2 [facility] Procedures Procedure Date / Time Performing Clinician Source Performed US PELVIS COMPLETE WITH 2023-05-10 16:10:00 Isaac Brock [facility] TRANSVAGINAL [facility] POCT TEST 2023-05-07 00:00:00 Porsha Godwin [facility] LIPASE 2023-04-05 16:36:00 Jonathan Browne [facility] o [facility] COMP. METABOLIC PANEL 2023-04-05 16:36:00 Jonathan Browne [facility] ([id number]) [facility] CBC WITH DIFF 2023-04-05 16:36:00 Jonathan Browne [facility] URINALYSIS 2023-04-05 16:36:00 Jonathan Browne [facility] CONSENT/REFUSAL FOR 2023-04-05 15:53:41 Doctor Unassigned, No [facility] DIAGNOSIS AND TREATMENT Name [facility] GC & CHLAMYDIA 2023-03-21 19:41:00 Vishal [facility] AMPLIFIED [facility] HIGH RISK HPV-THIN PREP 2023-03-21 19:41:00 Vishal, [facility] TRICHOMONAS AMPLIFIED 2023-03-21 19:41:00 Vishal [facility] PAP SMEAR-LIQUID 2023-03-21 19:41:00 Vishal [facility] BASED-CP [facility] ASSIGNMENT OF BENEFITS 2023-03-21 17:55:20 Doctor Unassigned, No [facility] Name [facility] CT Brain WO Con 2022-06-27 15:26:00 [facility] Encounters Start End Encounter Admission Attending Care Care Encounter Source Date/Time Date/Time Type Type Clinicians Facility Department ID 2023-06-26 2023-06-26 Outpatient Gris GODWIN VTALEJANDRINA [facility] [id number] Univers 09:40:00 09:40:00 PORSHA cloud [facility] 2023-05-14 2023-05-14 Telephone Isaac Brock [facility] [id number] Univers 00:00:00 00:00:00 SORT LINE 350.1.13.10 it [facility] 4.2.7.2.686 [place] MATERNAL [id number] [facility] ical & CHILD [address] [place] [address] 2023-05-10 2023-05-10 Outpatient R ISAAC BROCK VTALEJANDRINA [facility] [id number] Univers 10:32:08 23:59:00 ai [facility] 2023-05-10 2023-05-10 [facility] Isaac Brock [facility] 1.2.840.114 [id number] Univers 10:32:08 23:59:00 Encounter [place] 350.1.13.10 ity of [place] 4.2.7.2.686 [facility] [id number] [facility] 806 Branch 2023-05-07 2023-05-[address] [facility] [id number] Univers 08:40:00 12:52:52 ERICA cloud o f [facility] 2023-05-07 2023-05-07 Office Porsha Godwin [facility] 1.2.840.1 [id number] Univers 08:40:00 09:20:00 Visit Erica Smith [facility] 350.1.13.10 ity of [facility] 4.[address].7[address] [place] [address] [id number] [facility] [address] [place] 2023-04-23 2023-04-23 Outpatient R VISHAL [facility] [id number] Univers 00:00:00 00:00:00 ity of [facility] 2023-04-16 2023-04-16 Telephone SAMPSON Ramires 1.2.840.114 [id number] Univers 00:00:00 00:00:00 [facility] 350.1.13.10 i ty of [facility] 4.2.7.[address] [place] [address] [id number] [facility] 113 Branch 2023-04-05 2023-04-05 Emergency [id number] Univers 10:57:00 14:04:00 JONATHAN ity of [facility] 2023-04-05 2023-04-05 [facility] [id number] Univers 10:57:00 14:04:00 [facility] 350.1.13.10 i ty of [place] [address] [place] [address] [id number] [facility] 084 Branch 2023-04-04 2023-04-04 Telephone Vishal [facility] 1.2.840.114 [id number] Univers 00:00:00 00:00:00 SORT LINE 350.1.13.10 it y of REGIONAL 4.2.7.2.686 [place] as MATERNAL [id number] [facility] & CHILD [address] [facility] 2023-03-21 2023-03-[address] [place] [facility] 1.2.840.114 [id number] Univers 14:30:00 14:48:57 Visit Wilbert SORT LINE 350.1.13.10 it y of REGIONAL 4.2.7.2.686 [place] MATERNAL [id number] [facility] & CHILD [address] [place] [address] 2023-03-21 2023-03-[address] [facility] [id number] Univers 14:00:00 14:00:00 WILBERT ity [facility] 2023-03-21 2023-03-21 Orders Doctor RORO 1.2.840.114 [id number] Univers 00:00:00 00:00:00 Only Unassigned, MARIA TERESA 350.1.13.10 ity of [place] [facility] 4.2.7.2.686 [place] as [id number] [facility] [address] [place] 2023-03-18 2023-03-[address] [facility] [id number] Univers 00:00:00 00:00:00 Patient SORT LINE 350.1.13.10 it y of Does Not [place] MATERNAL [id number] [facility] & CHILD 107 [facility] 2023-02-18 2023-02-19 Hospital Radiology [facility] 1.2.840.114 [id number] Univers 08:00:00 03:27:00 Encounter HOSPITAL 350.1.13.10 [place] [id number] [facility] 105 Branch 2023-02-18 2023-02-18 Hospital [place] [facility] 1.2.840.114 [id number] Univers 07:39:29 07:59:00 Encounter nVeronica HOSPITAL 350.1.13.10 it[place].2.686 [place] [id number] [facility] 8[address] [place] 2022-06-27 2022-06-27 Departed [id number]- [facility] 532 [id number] Bly 13:46:00 16:35:00 Emergency [id number] [place] [id number] [facility] -deaa-[address] [id number] Yann meyers [id number] Ctr-EMERGEN [id number] [facility] SERVICES/MS Care [facility] 2022-06-27 2022-06-27 Emergency ER Chavo, STLSJM STLSJM [id number] 13:46:00 16:35:00 Mckayla -[id number] Luke [facility] 2018-02-14 2018-02-19 Inpatient [facility] [id number] [facility] 19:10:00 13:33:00 Yann NAIDU' [facility] Results Test Description Test Time Test Comments Results Result Comments Source POCT TEST 2023-05-07 13:40:00 Test Item Value Reference Range Interpretation Comme nts POCT PREG (test code = 1605) Negative On board controls acceptable with C Line (test code = 3574) Yes POCT PREG LOT # (test code = 3575) POCT PREG TEST DATE (test code = 3576) [id number] 13:40:00 Test Item Value Reference Range Interpretation Comments POCT PREG (test code = 1605) Negative On board controls acceptable with C Yes Line (test code = 3574) POCT PREG LOT # (test code = 3575) POCT PREG TEST DATE (test code = 3576) [facility] (47254)2023-04-05 17:15:55 Test Item Value Reference Range Interpretation Comments NA (test code = 137 mmol/L 135-145 5652265299) K (test code = 5.0 mmol/L 3.5-5.0 5234184606) CL (test code = 102 mmol/L 98-108 7259778871) CO2 TOTAL (test code = 28 mmol/L 23-31 0447465040) AGAP (test code = 7 2-16 9273715075) BUN (test code = 12 mg/dL 7-23 3335861777) GLUCOSE (test code = 89 mg/dL 70-110 5623795074) CREATININE (test code = 0.77 mg/dL 0.50-1.04 7582429768) TOTAL BILI (test code = 0.7 mg/dL 0.1-1.1 6044834784) CALCIUM (test code = 8.7 mg/dL 8.6-10.6 4808780217) T PROTEIN (test code = 6.8 g/dL 6.3-8.2 4097695884) ALBUMIN (test code = 3.6 g/dL 3.5-5.0 2765994825) ALK PHOS (test code = 70 U/L 34-122 2371970898) ALTv (test code = 27 U/L 5-35 2-6) AST(SGOT) (test code = 50 U/L 13-40 H 5026409820) eGFR (test code = 79.3 mL/min/1.73m2 5800094498) BRY (test code = BRY) Association of Glomerular Filtration Rate (GFR) and Staging of Kidney Disease* + --+ --+ ------+| GFR (mL/min/1.73 m2) ?| With Kidney Damage ?| ?Without Kidney Damage+ --------+ --------+ +| ?>90 ?| ?Stage one ?| ? Normal ?+ ---+ ---+ -------+| ?60-89 ?| ?Stage two ?| ? Decreased GFR ? + --+ --+ ------+| ?30-59 ?| ?Stage three ?| ? Stage three ? + --+ --+ ------+| ?15-29 ?| ?Stage four ? | ? Stage four ?+ ---+ ---+ -------+| ?<15 (or dialysis) ? ?| ?Stage five ? | ? Stage five ?+ ---+ ---+ -------+ *Each stage assumes the associated GFR level has been in effect for at least three months. ?Stages 1 to 5, with or without kidney disease, indicate chronic kidney disease. Notes: Determination of stages one and two (with eGFR >59mL/min/1.73 m2) requires estimation of kidney damage for at least three months as defined by structural or functional abnormalities of the kidney, manifested by either:Pathological abnormalities or Markers of kidney damage (including abnormalities in the composition of the blood or urine or abnormalities in imaging tests). Lab Interpretation Abnormal (test code = 46962-6) [facility] 17:15:12 Test Item Value Reference Range Interpretation Comments LIPASE (test code = 8960645979) 61 U/L 0-220 Lab Interpretation (test code = Normal 67722-7) [facility] [id number] 17:02:08 Test Item Value Reference Range Interpretation Comments WBC (test code = 9.95 See_Comment [Automated 6690-2) message] The sy stem which generated this result transmitted reference range : 4.30 - 11.10 10*3/?L. The reference range was not used to interpret this result as normal/abnormal . RBC (test code = 3.93 See_Comment [Automated 789-8) message] The sy stem which generated this result transmitted reference range : 3.93 - 5.25 10*6/?L. The reference range was not used to interpret this result as normal/abnormal . HGB (test code = 9.5 g/dL 11.6-15.0 L 718-7) HCT (test code = 32.2 % 35.7-45.2 L 4544-3) MCV (test code = 81.9 fL 80.6-95.5 787-2) MCH (test code = 24.2 pg 25.9-32.8 L 785-6) MCHC (test code = 29.5 g/dL 31.6-35.1 L 786-4) RDW-SD (test code = 54.0 fL 39.0-49.9 H 59037-7) RDW-CV (test code = 18.2 % 12.0-15.5 H 788-0) PLT (test code = 434 See_Comment H [Automated 777-3) message] The sy stem which generated this result transmitted reference range : 166 - 358 10*3/ ?L. The reference r elisa was not used to interpret this result as normal/abnormal . MPV (test code = 9.8 fL 9.5-12.9 12072-8) NRBC/100 WBC (test 0.0 See_Comment [Automat ed code = 6970065071) message] The system which generated this result transmitted reference range : 0.0 - 10.0 /100 WBCs. The refer ence range was not u sed to interpret th is result as normal/abnormal . NRBC x10^3 (test code See_Comment [Auto mated = 7268067661) message] The s ystem which generated this result transmitted reference range : 10*3/?L. The reference range was not used to interpret this result as normal/abnormal . GRAN MAT (NEUT) % 73.4 % (test code = 770-8) IMM GRAN % (test code 0.50 % = 5354562879) LYMPH % (test code = 20.1 % 736-9) MONO % (test code = 4.3 % 5905-5) EOS % (test code = 1.3 % 713-8) BASO % (test code = 0.4 % 706-2) GRAN MAT x10^3(ANC) 7.30 10*3/uL 1.88-7.09 H (test code = 1734276944) IMM GRAN x10^3 (test 0.05 10*3/uL 0.00-0.06 code = 4395150562) LYMPH x10^3 (test code 2.00 10*3/uL 1.32-3.29 = 731-0) MONO x10^3 (test code 0.43 10*3/uL 0.33-0.92 = 742-7) EOS x10^3 (test code = 0.13 10*3/uL 0.03-0.39 711-2) BASO x10^3 (test code 0.04 10*3/uL 0.01-0.07 = 704-7) Lab Interpretation Abnormal (test code = 84606-9) [facility] Test Item Value Reference Range Interpretation Comments Chemistry (test Less than 10.0-30.0 L Therapeutic Range: 10.0 - code = ACET-T) 10.0 mcg/mL 30.0 ug/mLTox ic Range: Possible toxici ty: 150 - 200 ug/mL Probable toxicity: Greater than 20 0 ug/mL*IMPORTANT TESTING INFORMATION* Th e half-life of NAC is 2 nini rs. The total NAC clearanceis 5.6 hours for adults and 11 hours for Newborns. Testi ng acetaminophen l evels prior to a reasonable timeframe for clearance c an cause falsely decreasedacetam inophen levels. Chemistry (test Less than Less than 10 The pharmaco logical response code = ETOH) 10 mg/dL to blood alcoho l levels mayvary from in dividual to individual. Neg ative: Less than 10 mg/dL T oxic: 50 - 100 mg/dL Depre ssion of MANUFACTURING DESIGN ENGINEER: Greater than 10 0 mg/dL Fatalities repo rted: Greater than 400 mg/dL Chemistry (test Less than 15.0-30.0 L code = SALCY) 8.0 mg/dL Serum or plasma acetaminophen measurement (mass/volume)2022-06-27 16:04:00 Test Item Value Reference Range Interpretation Comments Acetaminophen Level (test Less than 10.0 10.0-30.0 code = 3298-7) mcg/mL [facility] (mass/volume)2022-06-27 16:04:00 Test Item Value Reference Range Interpretation Comments Plasma Alcohol (test code Less than 10 mg/dL Less than 10 = 5643-2) [facility] salicylates measurement (mass/volume)2022-06-27 16:04:00 Test Item Value Reference Range Interpretation Comments Salicylates Level (test Less than 8.0 mg/dL 15.0-30.0 code = 4024-6) [facility] Test Item Value Reference Range Interpretation Comments Toxicology Not Detected NotDetected (test code = MICHELE) Toxicology Not Detected NotDetected (test code = PCP) Toxicology Not Detected NotDetected (test code = COCN) Toxicology Not Detected NotDetected (test code = METHAMPU) Toxicology Not Detected NotDetected (test code = OPIA) Toxicology Not Detected NotDetected (test code = AMPHU) Toxicology Not Detected NotDetected (test code = ELVIA) Toxicology Detected NotDetected A (test code = TRICY) Toxicology Not Detected NotDetected (test code = MTD) Toxicology Not Detected NotDetected (test code = FREIDA) Toxicology Not Detected NotDetected (test code = OXYCOD) Toxicology Not Detected NotDetected (test code = PPX) Toxicology See_Comment The [employer] Pro file-V Panel (test code = for Qualitative Drugs MTCUTOFF) ofAbuse assays are for presumptive scr eening testing only.Th e drug class and detec tion limits are as follows: Drug Class Detection Limit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 The patient denies. REVIEW OF SYSTEMS: The patient denies any fatigue or chills. The pa tient denies any headache. CARDIOVASCULAR: The patient denies any chest liya n. RESPIRATORY: The patient denies any shortness of breath. GASTROINTESTINAL: The patient denies any abdomin al pain. MUSCULOSKELETAL: The patient denies any muscle o r bone ache. ENDOCRINOLOGY: The patient endorses hypothyroidi sm. NEUROLOGIC: The patient denies any numbness or t ingling. SKIN ISSUES: The patient states that she has a f ew scratches on her hand. Patient Name: FARIBA PAYNE Account Number: [id number] PHYSICAL EXAMINATION: VITAL SIGNS: Temperature 98.1, pulse 66, respira tory rate 18, blood pressure of 107/52. MENTAL STATUS EXAM: GENERAL: Disheveled, frail female, with good eye contact, irritable attitude. SPEECH: Regular rate and rhythm. Volume is haja l with good articulation. MOOD/AFFECT: Mood was "good." Affect is irritabl e. PERCEPTION: She endorses auditory hallucinations . THOUGHT PROCESS: Linear and goal directed. THOUGHT CONTENT: The patient denies any SI, HI, ideas of reference or delusions. The patient endorses paranoia. INSIGHT/JUDGMENT: The patient's insight is parti al. She is aware of why she is here, but seems to have some limited understa nding of her mental illness. The patient has also been off of her medication for about a year. JUDGMENT: Poor. She is demanding of medications; but however, she is compliant with her medical plan. COGNITION: Intact. ALERT AND ORIENTATION: The patient is alert to p erson, place, time and circumstance. She is able to do her full name, l ocation and why she is at the hospital. MEMORY: Immediate recall is intact. Delayed reca ll is partial as she was able to remember 2/3 objects. Remote memory is p artially intact as she is only able to remember 2/3 past presidents. INTELLECTUAL FUNCTIONING: Average. ATTENTION: Partially intact. She is able to spel l backwards with some mistakes. ABSTRACT THINKING: [place]. FUND OF KNOWLEDGE: Appropriate for education. Brianna cardona is able to name 5 cities. GAIT: Normal. LABORATORY DATA: Serum is negative. WBC is 11.0. Hemogl obin of 11.8, hematocrit 37.3. Cholesterol 160, HDL 76. RPR is nonreactiv e. TSH is 6.64. UDS at outside hospital is positive for benzos; however , she did also receive benzos in the emergency room at the outside hospital. ASSESSMENT: Ms. Fariba Payne is a 47-year-old female with a past psychiatric history of bipolar disorder, schizoaffective disorder, a nxiety, past medical history of hypothyroidism and chronic obstructive pulmon federico disease, presenting for concern of deterioration due to psychosis in the context of being off medication. On initial interview, she reported a uditory hallucinations, insomnia, lethargy, decreased appetite, decrease d concentration, paranoia, panic attacks, nightmares and flashbacks in the past. Patient Name: FARIBA PAYNE Account Number: [id number] PHYSICAL EXAMINATION: VITAL SIGNS: Temperature 98.1, pulse 66, respira tory rate 18, blood pressure of 107/52. MENTAL STATUS EXAM: GENERAL: Disheveled, frail female, with good eye contact, irritable attitude. SPEECH: Regular rate and rhythm. Volume is haja l with good articulation. MOOD/AFFECT: Mood was "good." Affect is irritabl e. PERCEPTION: She endorses auditory hallucinations . THOUGHT PROCESS: Linear and goal directed. THOUGHT CONTENT: The patient denies any SI, HI, ideas of reference or delusions. The patient endorses paranoia. INSIGHT/JUDGMENT: The patient's insight is parti al. She is aware of why she is here, but seems to have some limited understa nding of her mental illness. The patient has also been off of her medication for about a year. JUDGMENT: Poor. She is demanding of medications; but however, she is compliant with her medical plan. COGNITION: Intact. ALERT AND ORIENTATION: The patient is alert to p erson, place, time and circumstance. She is able to do her full name, l ocation and why she is at the hospital. MEMORY: Immediate recall is intact. Delayed reca ll is partial as she was able to remember 2/3 objects. Remote memory is p artially intact as she is only able to remember 2/3 past presidents. INTELLECTUAL FUNCTIONING: Average. ATTENTION: Partially intact. She is able to spel l backwards with some mistakes. ABSTRACT THINKING: [place]. FUND OF KNOWLEDGE: Appropriate for education. Brianna cardona is able to name 5 cities. GAIT: Normal. LABORATORY DATA: Serum is negative. WBC is 11.0. Hemogl obin of 11.8, hematocrit 37.3. Cholesterol 160, HDL 76. RPR is nonreactiv e. TSH is 6.64. UDS at outside hospital is positive for benzos; however , she did also receive benzos in the emergency room at the outside hospital. ASSESSMENT: Ms. Fariba Payne is a 47-year-old female with a past psychiatric history of bipolar disorder, schizoaffective disorder, a nxiety, past medical history of hypothyroidism and chronic obstructive pulmon federico disease, presenting for concern of deterioration due to psychosis in the context of being off medication. On initial interview, she reported a uditory hallucinations, insomnia, lethargy, decreased appetite, decrease d concentration, paranoia, panic attacks, nightmares and flashbacks in the past. Patient Name: FARIBA PAYNE Account Number: [id number] PRIMARY DIAGNOSIS: Psychosis, not otherwise specified. SECONDARY DIAGNOSES: Hypothyroidism, unspecified insomnia and unspeci fied anxiety. PLAN: Ms. Fariba Payne is to be admitted to Dr. Darrell Alexandra's service on the [facility] Inpatient Unit and placed on agapito huong precautions of PICU as well as unit restriction. She will be started on 50 mg of Vistaril q. 6 hours p.r.n. for anxiety, trazodone 50 mg at bed time p.r.n. for insomnia, Risperdal 2 mg p.o. b.i.d. for psychosis, not ot herwise specified. She was offered a nicotine patch. She will be offered on e-to-one therapy. Internal Medicine has been consulted for current medical needs. She will be monitored daily while in the unit. She will be plan to dis charge to daughter's house in [facility] when her symptoms improve. Brianna cardona has been encouraged to attend all group therapy sessions to participate in her treatment and to bring any concerns to the attention of the treat ment team. MD Evangelista Solomon MD Date Dictated: 02/16/2018 Date 02/16/2018 Transcribed: IP/GOP/SANDOVAL/GHO cc:Evangelista Alexandra MD Electronically Authenticated by: Melanie Ontiveros MD On 02/24/2018 06:57 AM CDT Patient Name: FARIBA PAYNE Account Number: [id number] PRIMARY DIAGNOSIS: Psychosis, not otherwise specified. SECONDARY DIAGNOSES: Hypothyroidism, unspecified insomnia and unspeci fied anxiety. PLAN: Ms. Fariba Payne is to be admitted to Dr. Darrell Alexandra's service on the [facility] Inpatient Unit and placed on agapito dard precautions of PICU as well as unit restriction. She will be started on 50 mg of Vistaril q. 6 hours p.r.n. for anxiety, trazodone 50 mg at bed time p.r.n. for insomnia, Risperdal 2 mg p.o. b.i.d. for psychosis, not ot herwise specified. She was offered a nicotine patch. She will be offered on e-to-one therapy. Internal Medicine has been consulted for current medical needs. She will be monitored daily while in the unit. She will be plan to dis charge to daughter's house in [facility] when her symptoms improve. Brianna cardona has been encouraged to attend all group therapy sessions to participate in her treatment and to bring any concerns to the attention of the treat ment team. MD Evangelista Solomon MD Date Dictated: 02/16/2018 Date 02/16/2018 Transcribed: IP/GOPatricia/SANDOVAL/GHO cc:Evangelista Alexandra MD Electronically Authenticated by: Melanie Ontiveros MD On 02/24/2018 06:57 AM CDT Electronically Authenticated by: Evangelista Alexandra MD On 02/25/2018 06:46 PM CDT 2018-02-17 16:15:58-00:00 [facility] History and Physical PATIENT NAME: FARIBA PAYNE PHYSICIAN: Sarath Mckeon MD Admitted: MR NUMBER: [id number] DISCHARGED: CHIEF COMPLAINT: Auditory hallucinations. HISTORY OF PRESENT ILLNESS: This is a middle-aged, female with a p ast medical history significant for hypothyroidism, COPD, manic depr essive disorder, who was brought in by EMS to the ER with symptoms of anx iety attack. The patient states that she has been hearing voices, which a re telling her to "hurt my kids." She denies any suicidal ideation. Denies any homicidal ideation. Denies any headache, fever or chills. Denies any chest pain, denies any shortness of breath, denies any nausea, vomiting . Denies any dysuria or hematuria. REVIEW OF SYMPTOMS: A 10-point review of symptoms otherwise is negat mansi. PAST MEDICAL HISTORY: 1. Thyroiditis status post radiation treatment, thyroid in 1991 resulting in hypothyroidism. 2. Chronic obstructive pulmonary disease. 3. Asthma. 4. Manic depressive bipolar disorder. 5. Schizophrenia. PAST SURGICAL HISTORY: None. MEDICATIONS: She is not taking any medications for more than 6 months. ALLERGIES: MORPHINE. SOCIAL HISTORY: The patient is single. She has 1 child. She smok es 1 pack per day. Denies any alcohol use for 11 years. Denies any drugs. FAMILY HISTORY: Mother of liver cancer in her 70s. Brother at age 38 secondary to cirrhosis. Father of Alzheimer disease. PHYSICAL EXAMINATION: GENERAL: This is a middle-aged female who is gina ke, alert and oriented, in no acute distress. VITAL SIGNS: T-max 98.1, heart rate is 66, respi ratory rate is 18, blood pressure is 107/52. HEENT: Normocephalic, atraumatic. No icterus. No pharyngeal congestion. NECK: Supple. No lymphadenopathy. LUNGS: Clear to auscultation. No wheezing or rho nchi. CARDIOVASCULAR: S1, S2, regular rate and rhythm. [facility] History and Physical PATIENT NAME: FARIBA PAYNE PHYSICIAN: Sarath Mckeon MD Admitted: MR NUMBER: [id number] DISCHARGED: CHIEF COMPLAINT: Auditory hallucinations. HISTORY OF PRESENT ILLNESS: This is a middle-aged, female with a p ast medical history significant for hypothyroidism, COPD, manic depr essive disorder, who was brought in by EMS to the ER with symptoms of anx iety attack. The patient states that she has been hearing voices, which a re telling her to "hurt my kids." She denies any suicidal ideation. Denies any homicidal ideation. Denies any headache, fever or chills. Denies any chest pain, denies any shortness of breath, denies any nausea, vomiting . Denies any dysuria or hematuria. REVIEW OF SYMPTOMS: A 10-point review of symptoms otherwise is negat mansi. PAST MEDICAL HISTORY: 1. Thyroiditis status post radiation treatment, thyroid in 1991 resulting in hypothyroidism. 2. Chronic obstructive pulmonary disease. 3. Asthma. 4. Manic depressive bipolar disorder. 5. Schizophrenia. PAST SURGICAL HISTORY: None. MEDICATIONS: She is not taking any medications for more than 6 months. ALLERGIES: MORPHINE. SOCIAL HISTORY: The patient is single. She has 1 child. She smok es 1 pack per day. Denies any alcohol use for 11 years. Denies any drugs. FAMILY HISTORY: Mother of liver cancer in her 70s. Brother at age 38 secondary to cirrhosis. Father of Alzheimer disease. PHYSICAL EXAMINATION: GENERAL: This is a middle-aged female who is gina ke, alert and oriented, in no acute distress. VITAL SIGNS: T-max 98.1, heart rate is 66, respi ratory rate is 18, blood pressure is 107/52. HEENT: Normocephalic, atraumatic. No icterus. No pharyngeal congestion. NECK: Supple. No lymphadenopathy. LUNGS: Clear to auscultation. No wheezing or rho nchi. CARDIOVASCULAR: S1, S2, regular rate and rhythm. Patient Name: FARIBA PAYNE Account Number: [id number] ABDOMEN: Soft, nontender, nondistended. No hepat omegaly. EXTREMITIES: No cyanosis, congestion or edema. N o calf tenderness. NEUROLOGIC: PERRL, EOMI, Normal visual gtz, N ormal Facial Strength and sensation, Hearing Intact to finger rubs bilater ally, Tongue and uvula is midline, normal shoulder shrug. Grossly nonfocal . SKIN: No rash. LABORATORY DATA: White count is 11, otherwise normal CBC except h emoglobin of 11.8. LDL is 66. RPR is nonreactive. test is negati ve. TSH level is 6.64. EKG revealed sinus rhythm. No acute ST elevation . ASSESSMENT: 1. Schizophrenia now with auditory hallucination . 2. Bipolar disorder. 3. Hypothyroidism, not on any medication. 4. Chronic obstructive pulmonary disease, stable . PLAN: 1. At this time, the patient will be admitted t o psychiatric unit. I will defer management of her psych symptoms to Dr. Suleiman taylor. 2. We will start her on DuoNeb treatments as ne eded. 3. We will start her on a low dose of Synthroid 25 mcg daily. 4. The patient has been counseled to stop smoki ng. 5. The patient will need nicotine patch. 6. The patient is ambulatory and will not requi re any DVT prophylaxis. MD MARCELINO Dimas/GREYSON/MARCIA TD: 02/15/2018 14:14 Patient Name: FARIBA PAYNE Account Number: [id number] ABDOMEN: Soft, nontender, nondistended. No hepat omegaly. EXTREMITIES: No cyanosis, congestion or edema. N o calf tenderness. NEUROLOGIC: PERRL, EOMI, Normal visual gtz, N ormal Facial Strength and sensation, Hearing Intact to finger rubs bilater ally, Tongue and uvula is midline, normal shoulder shrug. Grossly nonfocal . SKIN: No rash. LABORATORY DATA: White count is 11, otherwise normal CBC except h emoglobin of 11.8. LDL is 66. RPR is nonreactive. test is negati ve. TSH level is 6.64. EKG revealed sinus rhythm. No acute ST elevation . ASSESSMENT: 1. Schizophrenia now with auditory hallucination . 2. Bipolar disorder. 3. Hypothyroidism, not on any medication. 4. Chronic obstructive pulmonary disease, stable . PLAN: 1. At this time, the patient will be admitted t o psychiatric unit. I will defer management of her psych symptoms to Dr. Suleiman taylor. 2. We will start her on DuoNeb treatments as ne eded. 3. We will start her on a low dose of Synthroid 25 mcg daily. 4. The patient has been counseled to stop smoki ng. 5. The patient will need nicotine patch. 6. The patient is ambulatory and will not requi re any DVT prophylaxis. MD MARCELINO Dimas/GREYSON/MARCIA TD: 02/15/2018 14:14 Electronically Authenticated by: Sarath Mckeon MD On 02/17/2018 04:15 PM CDT
[2023-05-29 13:30] LABS: Hematocrit 30.9 % (36.0-45.0); Lymphocytes % 20.4 % (15.3-44.8); MCV 75.4 fL (80-100); MPV 7.4 fL (7.6-11.3); RBC Red Blood Cell Count 4.09 M/uL (3.86-4.86)
[2023-05-29 13:36] LABS: Specific Gravity 1.022 (1.005-1.030); Transitional Epithelial <5 /HPF (None Seen); Urine Bacteria None Seen /HPF (<20); Urine Bilirubin NEGATIVE (Negative); Urine Blood Negative (Negative); Urine Clarity Clear (Clear); Urine Color Light-Yellow (Yellow); Urine Glucose NEGATIVE (Negative); Urine Mucus Slight /HPF (None Seen); Urine Protein NEGATIVE (Negative); Urine RBC <5 /HPF (None Seen); Urine Urobilinogen Normal (Normal)
[2023-05-29 13:40] LABS: Albumin 2.9 g/dL (3.4-5.0); Bilirubin Total 0.2 mg/dL (0.2-1.0); Potassium 3.3 mEq/L (3.5-5.1)
--- NOTE | 2023-05-29 13:43 | RAD REPORT ---
EXAM DESCRIPTION: CT - Abdomen Pelvis Wo Contrast - 05/29/2023 1:29 pm CLINICAL HISTORY: Abdominal pain COMPARISON: 2016 TECHNIQUE: Computed axial tomography of the abdomen and pelvis was obtained. IV and oral contrast we re not requested. All CT scans are performed using dose optimization technique as appropriate and may include automated exposure control or mA/KV adjustment according to patient size. FINDINGS: The evaluation of solid organs, vessels and bowel is limited secondary to the lack of con trast administration. Mild to moderate predominantly tree-in-bud opacities right lower lobe. Small to moderate hiatal hernia Cholecystectomy. No fluid within the gallbladder fossa. No ascites The liver, spleen, pancreas, adrenals and kidneys appear grossly normal. The appendix is normal. There is no evidence of diverticulitis. No adnexal mass IMPRESSION: Mild to moderate predominantly tree-in-bud opacities right lower lobe may indicate an atypical infect ion or aspiration.
[2023-05-29] MEDS ORDERED: KETOROLAC 30 MG/ML INJ ONE (14:34)
--- NOTE | 2023-05-29 14:43 | RAD REPORT ---
EXAM DESCRIPTION: Tj Single View05/29/2023 2:28 pm CLINICAL HISTORY: Chest pain COMPARISON: April 2023 FINDINGS: Right lung base is hazy Remainder of the lungs appear clear. Heart is normal size IMPRESSION: The right lung base is hazy which may indicate pneumonia
--- NOTE | 2023-05-29 14:56 | EDPHYS ---
Physician Documentation [facility] Name: Fariba Payne Age: 52 yrs Sex: Female : 1970 Arrival Date: 05/29/2023 Time: 12:51 Bed 10 Private MD: Forest Emmanuel E ED Physician Gualberto Maya HPI: 05/29 14:53 This 52 yrs old Female presents to ER via Ambulatory with complaints of Abdominal Pain kb - RUQ, Vomiting, Post Surgical Pain. 14:53 The patient presents with abdominal pain in the right upper quadrant. Onset: The kb symptoms/episode began/occurred months ago. The symptoms do not radiate. Associated signs and symptoms: Pertinent positives: nausea, vomiting, and diarrhea, Pertinent negatives: fever. The symptoms are described as constant. Modifying factors: The symptoms are alleviated by nothing, the symptoms are aggravated by nothing. Severity of pain: At its worst the pain was moderate in the emergency department the pain is unchanged. The patient has not experienced similar symptoms in the past. The patient has not recently seen a physician. Pt reports RUQ pain for months. States she had her gallbladder removed last month for this pain, but it did not resolve the issue. Reports n/v/d as well. Denies fever. Historical: - Allergies: 12:55 Haldol; ss 12:55 Morphine; ss - PMHx: 12:55 Anxiety; Bipolar disorder; COPD; Manic-Depressive disorder; ss - Immunization history:: Adult Immunizations up to date, Client reports receiving the 2nd dose of the Covid vaccine. - Social history:: Smoking status: Patient reports the use of cigarette tobacco products, smokes one pack cigarettes per day. Patient/guardian denies using alcohol. ROS: 14:52 Constitutional: Negative for fever, chills, and weight loss. kb 14:52 Abdomen/GI: Positive for abdominal pain, nausea, vomiting, and diarrhea. 14:52 All other systems are negative. Exam: 14:52 Constitutional: This is a well developed, well nourished patient who is awake, alert, kb and in no acute distress. Head/Face: Normocephalic, atraumatic. ENT: Moist Mucous membranes Cardiovascular: Regular rate and rhythm with a normal S1 and S2. No gallops, murmurs, or rubs. No pulse deficits. Respiratory: Respirations even and unlabored. No increased work of breathing. Talking in full sentences Abdomen/GI: Soft, non-tender. No distention Skin: Warm, dry with normal turgor. Normal color. MS/ Extremity: Pulses equal, no cyanosis. Neurovascular intact. Full, normal range of motion. Neuro: Awake and alert, GCS 15, oriented to person, place, time, and situation. Moves all extremities. Normal gait. Vital Signs: 12:55 BP 121 / 97; Pulse 92; Resp 18; Temp 97.9(O); Pulse Ox 94% on R/A; Weight 81.65 kg; ld1 Height 5 ft. 6 in. ; Pain 8/10; 14:29 BP 102 / 53; Pulse 86; Resp 16; Pulse Ox 97% on R/A; cm10 15:08 Pain 4/10; cm10 15:53 BP 114 / 57; Pulse 80; Resp 16; Pulse Ox 100% ; Pain 2/10; cm10 12:55 Body Mass Index 29.05 (81.65 kg, 167.64 cm) ld1 12:55 Pain Scale: Adult ld1 15:08 Pain Scale: Adult cm10 15:53 Pain Scale: Adult cm10 MDM: 12:54 Patient medically screened. kb 14:53 Data reviewed: vital signs, nurses notes. kb 14:53 Differential diagnosis: gastritis, gastroesophageal reflux disease, non-specific abd kb pain. Counseling: I had a detailed discussion with the patient and/or guardian regarding: the historical points, exam findings, and any diagnostic results supporting the discharge/admit diagnosis, lab results, radiology results, the need for outpatient follow up, a family practitioner, to return to the emergency department if symptoms worsen or persist or if there are any questions or concerns that arise at home. 15:48 ED course: Pt has follow up appt with GI on 06/11/23. kb 05/29 12:57 Order name: CBC with Diff; Complete Time: 13:35 kb 05/29 12:57 Order name: CMP; Complete Time: 13:43 kb 05/29 12:57 Order name: Lipase; Complete Time: 13:43 kb 05/29 12:57 Order name: Urinalysis w/ reflexes; Complete Time: 13:43 kb 05/29 13:30 Order name: Abdomen ; Complete Time: 13:56 EDMS 05/29 13:57 Order name: Chest Single View XRAY; Complete Time: 14:48 kb 05/29 12:57 Order name: IV Saline Lock; Complete Time: 13:12 kb 05/29 12:57 Order name: Labs collected and sent; Complete Time: 13:12 kb Administered Medications: 14:29 Drug: Ketorolac IVP 15 mg Route: IVP; Site: left antecubital; cm10 15:08 Follow up: Pain 4/10 Adult; Response: No adverse reaction; Pain is decreased cm10 15:07 Drug: NS 0.9% IV 1000 ml Route: IV; Rate: 1000 ml; Site: left antecubital; cm10 15:52 Follow up: Response: No adverse reaction; IV Status: Completed infusion; IV Intake: cm10 300ml 15:08 Drug: Rocephin IV 1 grams Route: IV; Rate: calculated rate; Site: left antecubital; cm10 15:52 Follow up: Response: No adverse reaction; IV Status: Completed infusion cm10 Disposition: 18:17 Co-signature as Attending Physician, Gualberto VILLEGAS was immediately available on-site ms3 in the Emergency Department for consultation in the care of the patient. Disposition Summary: 05/29/23 14:55 Discharge Ordered Location: Home kb Condition: Stable kb Diagnosis - Upper abdominal pain, unspecified kb - Pneumonia, unspecified organism kb Followup: kb - With: Emergency Department - When: As needed - Reason: Worsening of condition Followup: kb - With: Private Physician - When: 2 - 3 days - Reason: Recheck today's complaints, Continuance of care, Re-evaluation by your physician Discharge Instructions: - Discharge Summary Sheet kb - Abdominal Pain, Adult, [id number] kb - Community-Acquired Pneumonia, Adult, [id number] kb Forms: - Medication Reconciliation Form kb - Thank You Letter kb - Antibiotic Education kb - Prescription Opioid Use kb - [email or web address] kb Prescriptions: - ondansetron 4 mg Oral Tablet,disintegrating - take 1 tablet by ORAL route every 6 hours As needed; 12 tablet; Refills: 0, kb Product Selection Permitted - Zithromax 500 mg Oral Tablet - take 1 tablet by ORAL route once daily for 5 days; 5 tablet; Refills: 0, kb Product Selection Permitted Signatures: Dispatcher [facility] Jolie Wells, CURTAIN CLEANER-C CURTAIN CLEANER-Ckb Kellee Keating, RN RN ss Gualberto Maya, DO DO ms3 Desire Maya, RN RN ld1 Jada Whitaker, RN RN cm10 Corrections: (The following items were deleted from the chart) 13:30 12:58 Abdomen Pelvis W Con+CT.RAD.BRZ ordered. EDMS EDMS 14:53 14:52 Constitutional: This is a well developed, well nourished patient who is awake, kb alert, and in no acute distress. Head/Face: Normocephalic, atraumatic. ENT: Moist Mucous membranes Cardiovascular: Regular rate and rhythm with a normal S1 and S2. No gallops, murmurs, or rubs. No pulse deficits. Respiratory: Respirations even and unlabored. No increased work of breathing. Talking in full sentences Skin: Warm, dry with normal turgor. Normal color. MS/ Extremity: Pulses equal, no cyanosis. Neurovascular intact. Full, normal range of motion. Neuro: Awake and alert, GCS 15, oriented to person, place, time, and situation. Moves all extremities. Normal gait. kb 14:53 14:52 Abdomen/GI: Inspection: abdomen appears normal, Bowel sounds: normal, Palpation: kb soft, in all quadrants, mild abdominal tenderness, in the right upper quadrant, kb 14:55 14:52 Abdomen/GI: Positive for abdominal pain, nausea, diarrhea, kb kb
--- NOTE | 2023-05-29 14:56 | ER ---
Nurse's Notes [facility] Name: Fariba Payne Age: 52 yrs Sex: Female : 1970 Arrival Date: 05/29/2023 Time: 12:51 Bed 10 Private MD: Forest Emmanuel E Diagnosis: Upper abdominal pain, unspecified;Pneumonia, unspecified organism Presentation: 05/29 12:55 Chief complaint: Patient states: Cholecystectomy on 04/30/23. Difficulty swallowing, pain ld1 to lower abdomen. N/V/D. Coronavirus screen: At this time, the client does not indicate any symptoms associated with coronavirus-19. Ebola Screen: No symptoms or risks identified at this time. Initial Sepsis Screen: Does the patient meet any 2 criteria? No. Patient's initial sepsis screen is negative. Does the patient have a suspected source of infection? No. Patient's initial sepsis screen is negative. Risk Assessment: Do you want to hurt yourself or someone else? Patient reports no desire to harm self or others. Onset of symptoms was May 29, 2023. 12:55 Method Of Arrival: Ambulatory ld1 12:55 Acuity: EMPERATRIZ 3 ld1 Triage Assessment: 12:55 General: Appears in no apparent distress. comfortable, Behavior is calm, cooperative, ld1 appropriate for age. Pain: Complains of pain in right lower quadrant and left lower quadrant Pain does not radiate. Pain currently is 8 out of 10 on a pain scale. Quality of pain is described as throbbing. EENT: No signs and/or symptoms were reported regarding the EENT system. Neuro: Level of Consciousness is awake, alert, obeys commands, Oriented to person, place, time, situation. Cardiovascular: Capillary refill < 3 seconds Patient's skin is warm and dry. Respiratory: Airway is patent Respiratory effort is even, unlabored. GI: Abdomen is round non-distended, Reports lower abdominal pain, bloating, diarrhea, nausea, vomiting. : No signs and/or symptoms were reported regarding the genitourinary system. Derm: No signs and/or symptoms reported regarding the dermatologic system. Musculoskeletal: No signs and/or symptoms reported regarding the musculoskeletal system. Historical: - Allergies: 12:55 Haldol; ss 12:55 Morphine; ss - PMHx: 12:55 Anxiety; Bipolar disorder; COPD; Manic-Depressive disorder; ss - Immunization history:: Adult Immunizations up to date, Client reports receiving the 2nd dose of the Covid vaccine. - Social history:: Smoking status: Patient reports the use of cigarette tobacco products, smokes one pack cigarettes per day. Patient/guardian denies using alcohol. Screenin:[facility] ED Fall Risk Assessment (Adult) History of falling in the last 3 months, cm10 including since admission No falls in past 3 months (0 pts) Confusion or Disorientation No (0 pts) Intoxicated or Sedated No (0 pts) Impaired Gait No (0 pts) Mobility Assist Device Used No (0 pt) Altered Elimination No (0 pt) Score/Fall Risk Level 0 - 2 = Low Risk Oriented to surroundings, Maintained a safe environment. Abuse screen: Denies threats or abuse. Denies injuries from another. Nutritional screening: No deficits noted. Tuberculosis screening: No symptoms or risk factors identified. Assessment: 14:00 General: Appears in no apparent distress. comfortable, Behavior is calm, cooperative. cm10 Pain: Complains of pain in abdomen and left lower quadrant and right lower quadrant Pain currently is 7 out of 10 on a pain scale. Neuro: No deficits noted. Level of Consciousness is awake, alert, Oriented to person, place, time, situation. Cardiovascular: No deficits noted. Capillary refill < 3 seconds. Respiratory: No deficits noted. Airway is patent Respiratory effort is even, unlabored, Respiratory pattern is regular, symmetrical. GI: Bowel sounds present X 4 quads. Abd is soft and non tender. Derm: No deficits noted. Skin is intact, Skin is pink, warm \T\ dry. Vital Signs: 12:55 BP 121 / 97; Pulse 92; Resp 18; Temp 97.9(O); Pulse Ox 94% on R/A; Weight 81.65 kg; ld1 Height 5 ft. 6 in. ; Pain 8/10; 14:29 BP 102 / 53; Pulse 86; Resp 16; Pulse Ox 97% on R/A; cm10 15:08 Pain 4/10; cm10 15:53 BP 114 / 57; Pulse 80; Resp 16; Pulse Ox 100% ; Pain 2/10; cm10 12:55 Body Mass Index 29.05 (81.65 kg, 167.64 cm) ld1 12:55 Pain Scale: Adult ld1 15:08 Pain Scale: Adult cm10 15:53 Pain Scale: Adult cm10 ED Course: 12:52 Patient arrived in ED. am2 12:52 Forest Emmanuel MD is Private Physician. am2 12:54 [facility] Wells [facility]C [facility]. kb 12:54 Gualberto Maya DO is Attending Physician. kb 12:55 Arm band placed on right wrist. ld1 12:57 Triage completed. ld1 13:12 Inserted saline lock: 20 gauge in left antecubital area, using aseptic technique. Blood ld1 collected. 13:12 Urinalysis w/ reflexes Sent. ld1 13:12 CBC with Diff Sent. ld1 13:12 CMP Sent. ld1 13:12 Lipase Sent. ld1 13:14 Jada Whitaker, CROW is Primary Nurse. cm10 13:30 Abdomen In Process Unspecified. EDMS 14:29 Chest Single View XRAY In Process Unspecified. EDMS 15:53 Patient has correct armband on for positive identification. cm10 15:53 No provider procedures requiring assistance completed. IV discontinued, intact, cm10 bleeding controlled, No redness/swelling at site. Pressure dressing applied. Administered Medications: 14:29 Drug: Ketorolac IVP 15 mg Route: IVP; Site: left antecubital; cm10 15:08 Follow up: Pain 4/10 Adult; Response: No adverse reaction; Pain is decreased cm10 15:07 Drug: NS 0.9% IV 1000 ml Route: IV; Rate: 1000 ml; Site: left antecubital; cm10 15:52 Follow up: Response: No adverse reaction; IV Status: Completed infusion; IV Intake: cm10 300ml 15:08 Drug: Rocephin IV 1 grams Route: IV; Rate: calculated rate; Site: left antecubital; cm10 15:52 Follow up: Response: No adverse reaction; IV Status: Completed infusion cm10 Medication: 15:53 VIS not applicable for this client. cm10 Intake: 15:52 IV: 300ml; Total: 300ml. cm10 Outcome: 14:55 Discharge ordered by . kb 15:54 Discharged to home ambulatory, with family. cm10 15:54 Condition: good 15:54 Discharge instructions given to patient, Instructed on discharge instructions, follow up and referral plans. medication usage, Demonstrated understanding of instructions, follow-up care, medications, Prescriptions given X 2. 15:54 Patient left the ED. cm10 Signatures: Dispatcher [employer] EDMS Jolie Wells, RODERICK LAURA-Kellee Loredo, CROW RN Emily Hope Lauren, RN RN ld1 Jada Whitaker RN RN cm10
[2023-05-29] MEDS ORDERED: CEFTRIAXONE 1000 MG/VIAL ONE (15:09)
[2023-05-29] MEDS ORDERED: NA CHLORIDE 0.9% 50 ML ONE (15:09)
[2023-05-29] MEDS ORDERED: NA CHLORIDE 0.9% 1,000 ML ONE (15:12)
[2023-05-29 16:12] VITALS: TEMP 97.9
[2023-05-29 16:18] VITALS: BP 114/57; O2SAT 100
== END 2023-05-29 15:54 | disposition home or self-care (01) ==
LOC: ER 12:51
DX: J18.9 Pneumonia, unspecified organism (principal); F17.210 Nicotine dependence, cigarettes, uncomplicated; Z88.5 Allergy status to narcotic agent
CPT/HCPCS: 96365; 85025; 81001; 36415; 83690; 80053; 74176; 71045; 96375; 99284; J7030; J0696

== ENCOUNTER 2023-07-03 10:23 | Inpatient (IN) | payer OTHER ==
--- OUTSIDE RECORDS SUMMARY | 2023-07-03 10:27 | XMS REPORT | Continuity of Care Document ---
:1970 Author Organization [facility] t Address [address] [facility] [facility] [address] [place] [address] Care Team Providers Name Role Phone EVANGELISTA ALEXANDRA Primary Care Physician Unavailable PORSHA GODWIN Attending Clinician Unavailable Porsha Godwin MD Attending Clinician Doctor Unassigned, [place] Attending Clinician Unavailable Isaac Lizama Attending Clinician ERICA SMITH Attending Clinician Unavailable Erica Ortiz Attending Clinician Alix Simpson Attending Clinician JONATHAN BROWNE Attending Clinician Unavailable Jonathan Eli Attending Clinician Wilbert Bernal Attending Clinician WILBERT COLEMAN Attending Clinician Unavailable Pcp, Patient Does Not Have A Attending Clinician [phone] Radiology Attending Clinician Unavailable Veronica Mcarthur Attending Clinician Mckayla Tony Attending Clinician Unavailable EVANGELISTA ALEXANDRA M.D., Xi NAIDU Attending Clinician Unavailable ISAAC BROCK Admitting Clinician Unavailable Radiology Admitting Clinician Unavailable EVANGELISTA ALEXANDRA M.D., EVANGELISTA Admitting Clinician Unavail able Payers Payer Name Policy Type Policy Number Effective Date Expiration Date Shayy [facility] [id number] 2023 DUAL COMP HMO D 00:00:00 [facility] CHRISTIANA PUGH [id number] 2023 2023 00:00:00 PLUS 00:00:00 Problems Condition Condition Condition Status Onset Resolution [...] Post-menop Disease Active U nivers ausal ausal 4-27 ity of bleeding bleeding 00:00: Medical Branch Well woman Well woman Disease Active U nivers exam exam 4-27 ity of 00:00: Medical Branch Declined Declined Disease Active Unive rs smoking smoking 4-27 [place] of cessation cessation 00:00[place] [...] DRUG Active Low Other-Cmnt Univ ers INGREDI 4-27 ity of 00:00: Medical Branch Morphine Propensi Active Other - See Mental U nivers ty to comments -27 status ity of adverse 00:00: altered [place] reaction Medical s to Branch drug NO KNOWN Drug Active Univers ALLERGIE Class ity of S [facility] Social History Social Habit Start Date Stop Date Quantity Comments Source Gender identity Universit y of [facility] Sexual orientation Univer sity [facility] History of tobacco Passive smoker Un iversity of use [facility] Alcohol intake 2023-06-26 2023-06-26 Ex-drinker University 00:00:00 00:00:00 (finding) [facility] Exposure to 2023-03-11 2023-03-21 Not sure [facility] SARS-CoV-2 (event) 00:00:00 13:46:00 [facility] History of Social 2023-03-21 2023-03-21 Univers ity of function 00:00:00 00:00:00 [facility] Tobacco use and 2023-03-21 2023-03-21 Smokeless tobacco Un iversity of exposure 00:00:00 00:00:00 non-user [facility] Cigarettes smoked 2023-03-21 2023-03-21 Univers ity of current (pack per 00:00:00 00:00:00 [facility] ) - Reported [place] Cigarette 2023-03-21 2023-03-21 University of pack-years 00:00:00 00:00:00 [facility] Alcohol Comment 2007-11-12 2007-11-12 occassional Universi ty of 00:00:00 00:00:00 [facility] Sex Ass[birth year] At [birth year] Universit y of 00:00:00 00:00:00 [facility] Smoking Status Start Date Stop Date Source Unknown if ever smoked [facility] Smokes tobacco daily 2023-03-21 00:00:00 Univers ity of [facility] Medications Ordered Filled Start Stop Current Ordering Indication Dosage Frequency Signature Comments Components Source Medication Medication Date Date Medication? Clinician (SIG) Name Name risperiDONE Yes 3mg Take 1 Univ ers 3 mg tablet 6-13 tablet by ity of 08:26: mouth in [place] 13 the Medical morning Branch and 1 tablet in the evening. venlafaxine Yes 150mg Take 1 Uni vers XR 150 mg 6-13 capsule by ity of 24 hr 08:26: mouth [place] capsule 13 daily with Medica l breakfast. Branch levothyroxi 2022-0 Yes 100ug Take 1 Uni vers ne 100 mcg 6-13 tablet by ity of tablet 08:26: mouth. [address] Branch risperiDONE 2023-0 Yes 3mg Take 1 Univ ers 3 mg tablet 6-13 tablet by ity of 08:26: mouth in [place] [address] the [facility] and 1 tablet in the evening. venlafaxine 2023-0 Yes 150mg Take 1 Uni vers XR 150 mg 6-13 capsule by ity of 24 hr 08:26: mouth [place] capsule 13 daily with Medica l breakfast. Branch levothyroxi 2023-0 Yes 100ug Take 1 Uni vers ne 100 mcg 6-13 tablet by ity of tablet 08:26: mouth. [address] risperiDONE 2023-0 Yes 3mg Take 1 Univ ers 3 mg tablet 6-13 tablet by ity of 08:26: mouth in [place] [address] the [facility] and 1 tablet in the evening. venlafaxine 2023-0 Yes 150mg Take 1 Uni vers XR 150 mg 6-13 capsule by ity of 24 hr 08:26: mouth [place] capsule 13 daily with Medica l breakfast. Branch levothyroxi 3-0 Yes 100ug Take 1 Uni vers ne 100 mcg 6-13 tablet by ity of tablet 08:26: mouth. [address] risperiDONE 2023-0 Yes 3mg Take 1 Univ ers 3 mg tablet 6-13 tablet by ity of 08:26: mouth in [place] [address] the [facility] and 1 tablet in the evening. venlafaxine 2023-0 Yes 150mg Take 1 Uni vers XR 150 mg 6-13 capsule by ity of 24 hr 08:26: mouth [place] capsule 13 daily with Medica l breakfast. Branch levothyroxi 2023-0 Yes 100ug Take 1 Uni vers ne 100 mcg 6-13 tablet by ity of tablet 08:26: mouth. [address] risperiDONE 2023-0 Yes 3mg Take 1 Univ ers 3 mg tablet 6-13 tablet by ity of 08:26: mouth in [place] [address] the [facility] and 1 tablet in the evening. venlafaxine 2023-0 Yes 150mg Take 1 Uni vers XR 150 mg 6-13 capsule by ity of 24 hr 08:26: mouth [place] capsule 13 daily with Medica l breakfast. Branch levothyroxi 2023-0 Yes 100ug Take 1 Uni vers ne 100 mcg 6-13 tablet by ity of tablet 08:26: mouth. [address] risperiDONE 3-0 Yes 3mg Take 1 Univ ers 3 mg tablet 6-13 tablet by ity of 08:26: mouth in [place] [address] the Medical morning Branch and 1 tablet in the evening. venlafaxine 2022-0 Yes 150mg Take 1 Uni vers XR 150 mg 6-13 capsule by ity of 24 hr 08:26: mouth [place] capsule 13 daily with Medica l breakfast. Branch levothyroxi 2022-0 Yes 100ug Take 1 Uni vers ne 100 mcg 6-13 tablet by ity of tablet 08:26: mouth. [address] risperiDONE 2022-0 Yes 3mg Take 1 Univ ers 3 mg tablet 6-13 tablet by ity of 08:26: mouth in [place] [address] the Medical [facility] Branch and 1 tablet in the evening. venlafaxine 2022-0 Yes 150mg Take 1 Uni vers XR 150 mg 6-13 capsule by ity of 24 hr 08:26: mouth [place] capsule 13 daily with Medica l breakfast. Branch levothyroxi 2022-0 Yes 100ug Take 1 Uni vers ne 100 mcg 6-13 tablet by ity of tablet 08:26: mouth. [address] risperiDONE 2022-0 Yes 3mg Take 1 Univ ers 3 mg tablet 6-13 tablet by ity of 08:26: mouth in [place] [address] the [facility] Branch and 1 tablet in the evening. venlafaxine 2022-0 Yes 150mg Take 1 Uni vers XR 150 mg 6-13 capsule by ity of 24 hr 08:26: mouth [place] capsule 13 daily with Medica l breakfast. Branch levothyroxi 2022-0 Yes 100ug Take 1 Uni vers ne 100 mcg 6-13 tablet by ity of tablet 08:26: mouth. [address] ondansetron 2022-0 2022- No 4mg 4 mg, Univ ers (ZOFRAN-ODT 04-05 Oral, ity of ) 18:00: 17:10 ONCE, 1 [place] disintegrat 00 :00 dose, On Medi ermelinda ing tablet Fri Branch 4 mg 04/05/23 at 1300, Routine dicyclomine 2022-0 2022- No 20mg 20 mg, Uni vers (BENTYL) 5-12 05-12 Oral, ity of tablet 20 18:00: 17:10 ONCE, 1 [place] mg 00 :00 dose, On Medical Fri Branch 04/05/23 at 1300, Routine ondansetron 3-0 Yes [id number] 4mg Take 1 Univers 4 mg 5-12 tablet by ity of disintegrat 00:00: mouth [place] ing tablet 00 every 8 Medica l (eight) Branch hours as needed for Nausea and Vomiting (N/V). ondansetron 3-0 Yes [id number] 4mg Take 1 Univers 4 mg 5-12 tablet by ity of disintegrat 00:00: mouth [place] ing tablet 00 every 8 Medica l (eight) Branch hours as needed for Nausea and Vomiting (N/V). ondansetron 3-0 Yes [id number] 4mg Take 1 Univers 4 mg 5-12 tablet by ity of disintegrat 00:00: mouth [place] ing tablet 00 every 8 Medica l (eight) Branch hours as needed for Nausea and Vomiting (N/V). ondansetron 3-0 Yes [id number] 4mg Take 1 Univers 4 mg 5-12 tablet by ity of disintegrat 00:00: mouth [place] ing tablet 00 every 8 Medica l (eight) Branch hours as needed for Nausea and Vomiting (N/V). ondansetron 3-0 Yes [id number] 4mg Take 1 Univers 4 mg 5-12 tablet by ity of disintegrat 00:00: mouth [place] ing tablet 00 every 8 Medica l (eight) Branch hours as needed for Nausea and Vomiting (N/V). ondansetron 2023-0 Yes [id number] 4mg Take 1 Univers 4 mg 5-12 tablet by ity of disintegrat 00:00: mouth [place] ing tablet 00 every 8 Medica l (eight) Branch hours as needed for Nausea and Vomiting (N/V). ondansetron 2023-0 Yes [id number] 4mg Take 1 Univers 4 mg 5-12 tablet by ity of disintegrat 00:00: mouth [place] ing tablet 00 every 8 Medica l (eight) Branch hours as needed for Nausea and Vomiting (N/V). ondansetron 2023-0 Yes [id number] 4mg Take 1 Univers 4 mg 5-12 tablet by ity of disintegrat 00:00: mouth [place] ing tablet 00 every 8 Medica l (eight) Branch hours as needed for Nausea and Vomiting (N/V). ondansetron 2023-0 Yes [id number] 4mg Take 1 Univers 4 mg 5-12 tablet by ity of disintegrat 00:00: mouth [place] ing tablet 00 every 8 Medica l (eight) Branch hours as needed for Nausea and Vomiting (N/V). ondansetron 2023-0 Yes [id number] 4mg Take 1 Univers 4 mg 5-12 [...] daily with Medica l breakfast. Branch levothyroxi 3-0 Yes 100ug Take 1 Uni vers ne 100 mcg 4-27 tablet by ity of tablet 14:04: mouth. [address] Branch risperiDONE 2023-0 Yes 3mg Take 1 Univ ers (RISPERDAL) 4-27 tablet by ity of 3 mg tablet 14:04: mouth [place] 40 the Medical morning Branch and 1 tablet in the evening. venlafaxine 2023-0 Yes 150mg Take 1 Uni vers XR 150 mg 4-27 capsule by ity of 24 hr 14:04: mouth [place] capsule 40 daily with Medica l breakfast. Branch levothyroxi 3-0 Yes 100ug Take 1 Uni vers ne 100 mcg 4-27 tablet by ity of tablet 14:04: mouth. [address] Branch risperiDONE 2023-0 Yes 3mg Take 1 Univ [...] tablet by ity of tablet 14:04: mouth. [address] risperiDONE Yes 3mg Take 1 Univ ers (RISPERDAL) [...] tablet by ity of tablet 14:04: mouth. [address] risperiDONE Yes 3mg Take 1 Univ ers (RISPERDAL) [...] tablet by ity of tablet 14:04: mouth. [address] VICODIN 2022- No None Univers ORAL -02-19 Entered ity of 03:27: 00:00 [place] 55 [facility] CARISOPRODO 2022- No None Unive rs L ORAL -02-19 Entered ity of 03:27: 00:00 [place] 55 :00 [facility] VICODIN 0 Yes None Univers ORAL - Entered ity of 20:17: [address] CARISOPRODO Yes None Univer s L ORAL - Entered ity of 20:17: [address] cyclobenzap Yes [id number] 5mg Take 1 Univers rine 5 mg 01-1607 tablet by ity o f tablet 00:00: mouth 3 [place] [address] (three) Medical times Branch daily. traMADOL Yes [id number] 50mg Take 1 Univers (ULTRAM) 50 2-22 9107 tablet by ity of mg tablet 00:00: mouth [place] 00 every 6 Medical (six) Branch hours as needed for Pain (scale 4-6). cyclobenzap 2022- No [id number] 5mg Take 1 Univers rine 5 mg 01-16 9107 tablet by ity of tablet 00:00: 00:00 mouth 3 [place] 00 :00 (three) Medical times Branch daily. traMADOL 2022- No [id number] 50mg Take 1 Univers (ULTRAM) 50 01-1607 tablet by it y of mg tablet 00:00: 00:00 mouth [place] 00 :00 every 6 Medical (six) Branch hours as needed for Pain (scale 4-6). Vital Signs Vital Name Observation Time Observation Value Comments Source Systolic blood 2023-06-26 15:21:00 120 mm[Hg] Univer sity [facility] Diastolic blood 2023-06-26 15:21:00 80 mm[Hg] Unive rsity of [email or web address] Heart rate 2023-06-26 15:21:00 98 /min [facility] Body weight 2023-06-26 15:21:00 80.287 kg [facility] BMI 2023-06-26 15:21:00 28.57 kg/m2 [facility] Systolic blood 2023-05-07 13:26:00 104 mm[Hg] Univer sity [facility] Diastolic blood 2023-05-07 13:26:00 69 mm[Hg] Unive rsity [facility] Heart rate 2023-05-07 13:26:00 105 /min [facility] Body height 2023-05-07 13:26:00 167.6 cm [facility] Body weight 2023-05-07 13:26:00 87.091 kg [facility] BMI 2023-05-07 13:26:00 30.99 kg/m2 [facility] Systolic blood 2023-04-05 18:00:00 116 mm[Hg] Univer sity of [email or web address] Diastolic blood 2023-04-05 18:00:00 71 mm[Hg] Unive rsity of pressure [facility] Heart rate 2023-04-05 18:00:00 110 /min [facility] Oxygen saturation in 2023-04-05 18:00:00 97 /min [facility] Arterial blood by [facility] Pulse oximetry Branch Respiratory rate 2023-04-05 16:48:31 18 /min [facility] Body temperature 2023-04-05 16:48:31 37.28 Chela [facility] Body weight 2023-04-05 16:32:00 90.266 kg Universi ty of [facility] BMI 2023-04-05 16:32:00 32.12 kg/m2 [facility] Systolic blood 2023-03-21 18:47:00 139 mm[Hg] Univer sity of [email or web address] Diastolic blood 2023-03-21 18:47:00 77 mm[Hg] Unive rsity of [email or web address] Heart rate 2023-03-21 18:47:00 111 /min [facility] Body temperature 2023-03-21 18:47:00 36.61 Chela [facility] Respiratory rate 2023-03-21 18:47:00 16 /min [facility] Body height 2023-03-21 18:47:00 167.6 cm Universi ty of [facility] Body weight 2023-03-21 18:47:[address] [facility] BMI 2023-03-21 18:47:00 32.12 kg/m2 [facility] Procedures Procedure Date / Time Performing Clinician Source Performed NOTICE OF BILLING 2023-06-26 14:18:49 Doctor Unassigned, No Univ [facility] PRACTICES FOR MEDICARE Name Medical B ranch PATIENTS US PELVIS COMPLETE WITH 2023-05-10 16:10:00 [facility] TRANSVAGINAL [facility] POCT TEST 2023-05-07 00:00:00 Porsha Godwin [facility] LIPASE 2023-04-05 16:36:00 Jonathan Browne [facility] o f [facility] COMP. METABOLIC PANEL 2023-04-05 16:36:00 Jonathan Browne [facility] ([id number]) [facility] CBC WITH DIFF 2023-04-05 16:36:00 Jonathan Browne [facility] URINALYSIS 2023-04-05 16:36:00 Jonathan Browne [facility] CONSENT/REFUSAL FOR 2023-04-05 15:53:41 Doctor Unassvishal, Dasia Un [facility] DIAGNOSIS AND TREATMENT [facility] GC & CHLAMYDIA 2023-03-21 19:41:00 Fojt, [facility] HIGH RISK HPV-THIN PREP 2023-03-21 19:41:00 Fojt, [facility] TRICHOMONAS AMPLIFIED 2023-03-21 19:41:00 Fot, [facility] PAP SMEAR-LIQUID 2023-03-21 19:41:00 Fojt, [facility] BASED-CP [facility] ASSIGNMENT OF BENEFITS 2023-03-21 17:55:20 Doctor Unassigned, Dasia [facility] CT Brain WO Con 2022-06-27 15:26:00 [facility] Encounters Start End Encounter Admission Attending Care Care Encounter Source Date/Time Date/Time Type Type Clinicians Facility Department ID 2023-06-26 2023-06-26 Outpatient Gris GODWIN [facility] [id number] Univers 09:40:00 10:15:36 PORSHA ity [facility] 2023-06-26 2023-06-26 Office SAMPSON Godwin [id number] Univers 09:40:00 10:15:36 Visit [facility] 350.1.13.10 i ty of CLINICS [place] [id number] [facility] 095 Branch 2023-06-26 2023-06-26 Orders Doctor READ 1.2.840.114 [id number] Univers 00:00:00 00:00:00 Only Unassigned, MARIA TERESA 350.1.13.10 [facility] 4.2.7.2.686 [place] [id number] [facility] 009 Branch 2023-05-142023-05-14 Telephone Vishal [facility] 1.2.840.114 [id number] Univers 00:00:00 00:00:00 SEISMIC INTERPRETER 350.1.13.10 it y of REGIONAL 4.2.7.2.686 [place] as MATERNAL [id number] [facility] & CHILD [address] [place] [address] 2023-05-10 2023-05-10 Outpatient R AURADarcie [facility] [id number] Univers 10:32:08 23:59:00 ity of [facility] 2023-05-10 2023-05-10 [facility] 1.2.840.114 [id number] Univers 10:32:08 23:59:00 Encounter LIONEL 350.1.13.10 ity [facility] 4.2.[place].2.[place] [id number] [facility] [address] [place] 2023-05-07 2023-05-07 [facility] [id number] Univers 08:40:00 12:52:52 ERICA cloud o f [facility] 2023-05-07 2023-05-07 Office Porsha GodwinIT [id number] Univers 08:40:00 09:20:00 Visit Erica Smith [facility] 350.1.13.10 ity of [facility] 4.2.7.2.686 [place] [id number] [facility] 095 Branch 2023-04-23 2023-04-23 Outpatient R VISHAL [facility] [id number] Univers 00:00:00 00:00:00 ity of [facility] 2023-04-16 2023-04-16 Telephone IkeSAMPSON 1.2.840.114 [id number] Univers 00:00:00 00:00:00 [facility] 350.1.13.10 i ty of CL[place]ICS 4[place] [id number] [facility] 113 Branch 2023-04-05 2023-04-05 Emergency X AUDREY [facility] ERT [id number] Univers 10:57:00 14:04:00 JONATHAN ity [facility] 2023-04-05 2023-04-05 Emergency Audrey [facility] [id number] Univers 10:57:00 14:04:00 Jonathan FLOWERS 350.1.13.10 i ty of ADAH 4.2.7.2.686 [place] [id number] [facility] [address] [place] 2023-04-04 2023-04-04 Telephone Isaac Brock [facility] 1.2.840.114 [id number] Univers 00:00:00 00:00:00 SEISMIC INTERPRETER 350.1.13.10 it y of REGIONAL 4.2.7.2.686 [place] as MATERNAL [id number] [facility] & [address] 2023-03-21 2023-03-21 Office [place] [facility] 1.2.840.114 [id number] Univers 14:30:00 14:48:57 Visit [facility] SEISMIC INTERPRETER 350.1.13.10 it y of REGIONAL 4.2.7.2.686 [place] as MATERNAL [id number] [facility] & CHILD [address] [place] [address] 2023-03-21 2023-03-21 Outpatient R [facility] [id number] Univers 14:00:00 13:41:25 WILBERT joe [facility] 2023-03-21 2023-03-21 Orders Doctor RORO 1.2.840.114 [id number] Univers 00:00:00 00:00:00 Only Unassigned, MARIA TERESA 350.1.13.10 ity of [place] [facility] 4.2.7.2.686 [place] [id number] [facility] [address] [place] 2023-03-18 2023-03-18 Telephone Morgan [facility] [id number] Univers 00:00:00 00:00:00 Patient SEISMIC INTERPRETER 350.1.13.10 it y of Does Not [facility] [place] MATERNAL [id number] [facility] & CHILD [address] [place] [address] 2023-02-18 2023-02-19 Hospital Radiology [facility] 1.2.840.114 [id number] [facility] 08:00:00 03:27:00 Encounter HOSPITAL 350.1.13.10 ity of [place] [id number] [facility] 105 Branch 2023-02-18 2023-02-18 Hospital Weatherspoo TDJ 1.2.840.114 [id number] Univers 07:39:29 07:59:00 Encounter Veronica yin [facility] 350.1.13.10 ity of [place] [id number] [facility] [address] [place] 2022-06-27 2022-06-27 [id number] [address] [id number] [place] 13:46:00 16:35:00 Emergency [id number] [place] [id number] [facility] -[id number] [place] Streeta-[id number] Yann brand' [id number] Ctr-EMERGEN [id number] s [facility] SERVICES/MS Care [facility] 2022-06-27 2022-06-27 Emergency ER Chavo, STLSJM STLSJM [id number] 13:46:00 16:35:00 Mckayla -[id number] [facility] 2018-02-14 2018-02-19 [id number] [facility] 19:10:00 13:33:00 Yann [facility] Results Test Description Test Time Test Comments Results Result Comments Source POCT TEST 2023-05-07 13:40:00 Test Item Value Reference Range Interpretation Comme nts POCT PREG (test code = 1605) Negative On board controls acceptable with C Line (test code = 3574) Yes POCT PREG LOT # (test code = 3575) POCT PREG TEST DATE (test code = 3576) [id number] 13:40:00 Test Item Value Reference Range Interpretation Comments POCT PREG (test code = 1605) Negative On board controls acceptable with C Yes Line (test code = 3574) POCT PREG LOT # (test code = 3575) POCT PREG TEST DATE (test code = 3576) [facility] ([id number])2023-04-05 17:15:55 Test Item Value Reference Range Interpretation Comments NA (test code = 137 mmol/L 135-145 9522447382) K (test code = 5.0 mmol/L 3.5-5.0 1706208644) CL (test code = 102 mmol/L 98-108 4341908862) CO2 TOTAL (test code = 28 mmol/L 23-31 5775863234) AGAP (test code = 7 2-16 8697004244) BUN (test code = 12 mg/dL 7-23 9690973998) GLUCOSE (test code = 89 mg/dL 70-110 0427324395) CREATININE (test code = 0.77 mg/dL 0.50-1.04 3947696473) TOTAL BILI (test code = 0.7 mg/dL 0.1-1.2 4506156824) CALCIUM (test code = 8.7 mg/dL 8.6-10.6 6944857604) T PROTEIN (test code = 6.8 g/dL 6.3-8.2 0251152572) ALBUMIN (test code = 3.6 g/dL 3.5-5.0 3281406721) ALK PHOS (test code = 70 U/L 34-122 2690615374) ALTv (test code = 27 U/L 5-35 1742-6) AST(SGOT) (test code = 50 U/L 13-40 H 7990950171) eGFR (test code = 79.3 mL/min/1.73m2 4336260916) BRY (test code = BRY) Association of [...] tests). Lab Interpretation Abnormal (test code = 25313-3) [facility] 17:15:12 Test Item Value Reference Range Interpretation Comments LIPASE (test code = 1341914027) 61 U/L 0-220 Lab Interpretation (test code = Normal 56067-4) [facility] WITH [id number] 17:02:08 Test Item Value Reference Range Interpretation Comments WBC (test code = 9.95 See_Comment [Automated 7958-2) message] The sy stem which generated this result transmitted reference range : 4.30 - 11.10 10*3/?L. The reference range was not used to interpret this result as normal/abnormal . RBC (test code = 3.93 See_Comment [Automated 367-8) message] The sy stem which generated this [...] (test code = 54.0 fL 39.0-49.9 H 21565-9) RDW-CV (test code = 18.2 % 12.0-15.5 H 788-0) PLT (test code = 434 See_Comment H [Automated 777-3) message] The sy stem which generated this result transmitted reference range : 166 - 358 10*3/ ?L. The reference r elisa was not used to interpret this result as normal/abnormal . MPV (test code = 9.8 fL 9.5-12.9 95770-0) NRBC/100 WBC (test 0.0 See_Comment [Automat ed code = 4462124856) message] The system which generated this result transmitted reference range : 0.0 - 10.0 /100 WBCs. The refer ence range was not u sed to interpret th is result as normal/abnormal . NRBC x10^3 (test code See_Comment [Auto mated = 4668509871) message] The s ystem which generated this result transmitted reference range : 10*3/?L. The reference range was not used to interpret this result as normal/abnormal . GRAN MAT (NEUT) % 73.4 % (test code = 770-8) IMM GRAN % (test code 0.50 % = 0191543222) LYMPH % (test code = 20.1 % 736-9) MONO % (test code = 4.3 % 5905-5) EOS % (test code = 1.3 % 713-8) BASO % (test code = 0.4 % 706-2) GRAN MAT x10^3(ANC) 7.30 10*3/uL 1.88-7.09 H (test code = 5817553587) IMM GRAN x10^3 (test 0.05 10*3/uL 0.00-0.06 code = 2487323100) LYMPH x10^3 (test code 2.00 10*3/uL 1.32-3.29 = 731-0) MONO x10^3 (test code 0.43 10*3/uL 0.33-0.92 = 742-7) EOS x10^3 (test code = 0.13 10*3/uL 0.03-0.39 711-2) BASO x10^3 (test code 0.04 10*3/uL 0.01-0.07 = 704-7) Lab Interpretation Abnormal (test code = 88722-4) [facility] Test Item Value Reference [...] 50 - 100 mg/dL Depre ssion of DIRECTOR OF TRAUMA: Greater than 10 0 mg/dL Fatalities repo rted: Greater than 400 mg/dL Chemistry (test Less than 15.0-30.0 L code = SALCY) 8.0 mg/dL Serum or plasma acetaminophen measurement (mass/volume)2022-06-27 16:04:00 Test Item Value Reference Range Interpretation Comments Acetaminophen Level (test Less than 10.0 10.0-30.0 code = 3298-7) mcg/mL [facility] ethanol measurement (mass/volume)2022-06-27 16:04:00 Test Item Value Reference Range Interpretation Comments Plasma Alcohol (test code Less than 10 mg/dL Less than 10 = 5643-2) [facility] or plasma salicylates measurement (mass/volume)2022-06-27 16:04:00 Test Item Value Reference Range Interpretation Comments Salicylates Level (test Less than 8.0 mg/dL 15.0-30.0 code = 4024-6) [facility]00 Test Item Value Reference Range Interpretation [...] held fortwo weeks. [ Automated message] The [employer] stem which generated this result transmitted ref erence range: . The reference range was not used to interpr et this result as haja l/abnormal. Urine Source: Urine VoidedScreening urine cannabinoids detection using 50 ng/mL [id number] 15:37:00 Test Item Value Reference Range Interpretation Comments Urine Cannabinoids Screen (test Not Detected NotDetected code = 82223-5) [facility] phencyclidine detection by screening method >25 ng/[id number] 15:37:00 Test Item Value Reference Range Interpretation Comments Urine Phencyclidine Screen (test Not Detected NotDetected code = 90131-8) [facility] cocaine detection by screening method 2022-06-27 15:37:00 Test Item Value Reference Range Interpretation Comments Urine Cocaine Metabolite Screen Not Detected NotDetected (test code = 03458-9) [facility] methamphetamine detection by screening [id number] 15:37:00 Test Item Value Reference Range Interpretation Comments Urine Methamphetamines Screen Not Detected NotDetected (test code = 47687-0) [facility] opiates detection by screening method 2022-06-27 15:37:00 Test Item Value Reference Range Interpretation Comments Urine Opiates Screen (test code Not Detected NotDetected = 85926-9) [facility]Presence[facility] in Urine by Screen method >500 ng/[id number] 15:37:00 Test Item Value Reference Range Interpretation Comments Urine Amphetamines Screen (test Not Detected NotDetected code = 55827-2) [facility] benzodiazepines detection by screening [id number] 15:37:00 Test Item Value Reference Range Interpretation Comments Urine Benzodiazepines Screen Not Detected NotDetected (test code = 35547-8) [facility] tricyclic antidepressants [id number]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
[2023-07-03] MEDS ORDERED: CEFEPIME 2 GM VIAL ONE (10:59)
[2023-07-03] MEDS ORDERED: NA CHLORIDE 0.9% 100 ML ONE ×2 (10:59→17:46)
[2023-07-03] MEDS ORDERED: IPRATROPIUM BROM 0.5MG/2.5ML ONE (11:00)
[2023-07-03] MEDS ORDERED: ALBUTEROL 2.5 MG/3 ML NEB SOL ONE (11:00)
[2023-07-03 11:26] LABS: Absolute Lymphocytes (CBC) 1.8 K/uL (0.7-4.9); Hematocrit 33.1 % (36.0-45.0); Lymphocytes % 19.2 % (15.3-44.8); MCV 72.4 fL (80-100); MPV 7.7 fL (7.6-11.3); Platelets 345 thou/uL (152-406); RBC Red Blood Cell Count 4.57 M/uL (3.86-4.86)
[2023-07-03 11:31] LABS: Protime INR 1.05
--- NOTE | 2023-07-03 11:51 | RAD REPORT ---
EXAM DESCRIPTION: RADChest Single View07/03/2023 11:45 am CLINICAL HISTORY: COPD COMPARISON: Chest Single View dated 05/29/2023; Chest Pa And Lat (2 Views) dated 04/30/2023; Chest Singl e View dated 02/07/2022; Chest Pa And Lat (2 Views) dated 08/07/2018 TECHNIQUE: Portable AP view of the chest. FINDINGS: Nearly completely improved bilateral patchy airspace opacities. Residual mild central inte rstitial thickening, nonspecific but could relate to underlying COPD. No pneumothorax or effusion. Th e cardiomediastinal contours are unremarkable. IMPRESSION: No acute cardiopulmonary process. Sequelae of COPD.
[2023-07-03] MEDS ORDERED: LORazepam 2 MG/ML VIAL ONE (11:54)
[2023-07-03 12:21] LABS: Albumin 3.2 g/dL (3.4-5.0); Bilirubin Direct 0.1 mg/dL (0-0.2); Bilirubin Indirect, Calculated 0.3 mg/dL (0.2-0.8); Bilirubin Total 0.4 mg/dL (0.2-1.0); Potassium 2.9 mEq/L (3.5-5.1); Troponin High Sensitivity 8.7 pg/mL (<58.9)
--- NOTE | 2023-07-03 12:28 | EDPHYS ---
Physician Documentation [facility] Name: Fariba Payne Age: 52 yrs Sex: Female : 1970 Arrival Date: 07/03/2023 Time: 10:23 Bed 13 Private MD: ED Physician Delmar Leblanc HPI: 07/03 10:42 This 52 yrs old Female presents to ER via EMS with complaints of SOB, COPD. sp3 10:42 52-year-old female with history of COPD, bipolar, anxiety presents to the ED via EMS sp3 for chief complaint cough and shortness of breath. Patient states that she was diagnosed with pneumonia "a week ago". EMS administered Solu-Medrol 125 mg IV as well as an albuterol and Atrovent treatment. Patient arrives with room air pulse ox 88% with active cough and rhonchi diffuse. Heart rate is normal and blood pressure is also normal. Temp is 99.1. Patient denies any other symptoms including headache, chest pain, abdominal pain, nausea, vomiting, diarrhea, syncope, near syncope, focal neurological deficit, known sick contacts, travel history, or any other signs or symptoms on ROS at this time.. Historical: - Allergies: 10:38 Haldol; ld1 10:38 Morphine; ld1 - PMHx: 10:38 Anxiety; Bipolar disorder; COPD; Manic-Depressive disorder; ld1 - Immunization history:: Adult Immunizations up to date. - Social history:: Smoking status: Patient reports the use of cigarette tobacco products, smokes one-half pack cigarettes per day, Patient uses street drugs, marijuana. ROS: 10:43 Constitutional: Negative for fever, chills, and weight loss, Eyes: Negative for injury, sp3 pain, redness, and discharge, Neck: Negative for injury, pain, and swelling, Cardiovascular: Negative for chest pain, palpitations, and edema, Abdomen/GI: Negative for abdominal pain, nausea, vomiting, diarrhea, and constipation, Back: Negative for injury and pain, MS/Extremity: Negative for injury and deformity, Skin: Negative for injury, rash, and discoloration, Neuro: Negative for headache, weakness, numbness, tingling, and seizure, Psych: Negative for depression, anxiety, suicide ideation, homicidal ideation, and hallucinations, Allergy/Immunology: Negative for hives, rash, and allergies, Endocrine: Negative for neck swelling, polydipsia, polyuria, polyphagia, and marked weight changes. 10:43 All other systems are negative. Exam: 10:44 Constitutional: This is a well developed, well nourished patient who is awake, alert, sp3 and in no acute distress. Head/Face: Normocephalic, atraumatic. Eyes: Pupils equal round and reactive to light, extra-ocular motions intact. Lids and lashes normal. Conjunctiva and sclera are non-icteric and not injected. Cornea within normal limits. Periorbital areas with no swelling, redness, or edema. Neck: Trachea midline, no thyromegaly or masses palpated, and no cervical lymphadenopathy. Supple, full range of motion without nuchal rigidity, or vertebral point tenderness. No Meningismus. Chest/axilla: Normal chest wall appearance and motion. Nontender with no deformity. No lesions are appreciated. Cardiovascular: Regular rate and rhythm with a normal S1 and S2. No gallops, murmurs, or rubs. Normal PMI, no JVD. No pulse deficits. Abdomen/GI: Soft, non-tender, with normal bowel sounds. No distension or tympany. No guarding or rebound. No evidence of tenderness throughout. Back: No spinal tenderness. No costovertebral tenderness. Full range of motion. Skin: Warm, dry with normal turgor. Normal color with no rashes, no lesions, and no evidence of cellulitis. MS/ Extremity: Pulses equal, no cyanosis. Neurovascular intact. Full, normal range of motion. Neuro: Awake and alert, GCS 15, oriented to person, place, time, and situation. Cranial nerves II-XII grossly intact. Motor strength 5/5 in all extremities. Sensory grossly intact. Cerebellar exam normal. Normal gait. 10:44 Respiratory: Patient tachypneic at 22 breaths/min with a room air pulse ox of 88%. Patient has rhonchi diffusely.. 10:48 ECG was reviewed by the Attending Physician. EKG demonstrates normal sinus rhythm at 94 sp3 bpm with normal intervals normal QRS, normal axis, nonspecific diffuse ST/T-segment changes without evidence of acute ischemia. Vital Signs: 10:36 Pulse Ox 88% on R/A; ld1 10:40 BP 116 / 88; Pulse 101; Resp 31; Temp 99.1(O); Pulse Ox 90% on 4 lpm NC; Height 5 ft. 2 ld1 in. ; Pain 0/10; 11:50 BP 126 / 108; Pulse 93; Resp 32; Pulse Ox 100% on Nebulizer Mask; ld1 12:40 BP 83 / 68; Pulse 93; Resp 24; Pulse Ox 100% on BiPAP; ld1 13:46 Pulse 108; Resp 28; Pulse Ox 99% on Non-rebreather mask; ld1 14:14 BP 115 / 70; Pulse 77; Resp 18; Pulse Ox 100% on Non-rebreather mask; mb9 10:40 Pain Scale: Adult ld1 MDM: 10:40 Patient medically screened. sp3 10:45 Data reviewed: vital signs, nurses notes, EMS record, lab test result(s), EKG, sp3 radiologic studies. ED course: 52-year-old female with COPD exacerbation plus minus pneumonia. I am not sure if her COPD baseline however she response to oxygen. Will continue nebulizer treatments and antibiotics and get patient admitted to the hospital. I am not highly suspicious for acute coronary syndrome, shock, PE, CHF, or any other concerning findings. Workup will include laboratory values, chest x-ray, EKG and administration of supportive treatments with antibiotics and nebulizers.. 07/03 10:40 Order name: Basic Metabolic Panel; Complete Time: 12:26 sp3 07/03 10:40 Order name: CBC with Diff; Complete Time: 11:41 sp3 07/03 10:40 Order name: LFT's; Complete Time: 12:26 sp3 07/03 10:40 Order name: Magnesium; Complete Time: 12:26 sp3 07/03 10:40 Order name: NT PRO-BNP; Complete Time: 12:26 sp3 07/03 10:40 Order name: PT-INR; Complete Time: 11:41 sp3 07/03 10:40 Order name: Troponin HS; Complete Time: 12:26 sp3 07/03 10:40 Order name: Blood Culture Adult (2) sp3 07/03 10:40 Order name: Lactate w/ 2H reflex if indic.; Complete Time: 12:26 sp3 07/03 15:07 Order name: Phosphorus EDMS 07/03 15:07 Order name: T4 Free EDMS 08/09 15:07 Order name: Magnesium EDMS 07/03 15:07 Order name: Thyroid Stimulating Hormone EDMS 07/03 10:40 Order name: XRAY Chest (1 view); Complete Time: 12:26 sp3 07/03 14:42 Order name: CT EDMS 07/03 10:40 Order name: EKG; Complete Time: 10:50 sp3 07/03 10:40 Order name: Cardiac monitoring; Complete Time: 10:46 sp3 07/03 10:40 Order name: EKG - Nurse/Tech; Complete Time: 10:46 sp3 07/03 10:40 Order name: IV Saline Lock; Complete Time: 10:46 sp3 07/03 10:40 Order name: Labs collected and sent; Complete Time: 11:14 sp3 07/03 10:40 Order name: O2 Per Protocol; Complete Time: 10:46 sp3 07/03 10:40 Order name: O2 Sat Monitoring; Complete Time: 10:46 sp3 Administered Medications: 11:13 Drug: DuoNeb Nebulize (3:1) (2.5 mg - 0.5 mg) 3 ml Route: Nebulizer; ld1 11:42 Drug: Cefepime IVPB 2 grams Route: IVPB; Rate: 200 ml/hr; Infused Over: 30 mins; Site: ld1 right wrist; 11:49 Drug: Ativan IVP 1 mg Route: IVP; Site: right wrist; ld1 12:40 Follow up: Response: No adverse reaction ld1 11:50 CANCELLED (Duplicate Order): Ativan IVP 1 mg IVP once sp3 12:39 Drug: Ativan IVP 1 mg Route: IVP; Site: right wrist; ld1 13:44 Follow up: Response: No change in condition ld1 13:44 Drug: Geodon IM 10 mg Route: IM; Site: right deltoid; ld1 Disposition Summary: 07/03/23 12:27 Hospitalization Ordered Provider: Marcus Echols sp3 Condition: Stable sp3 Problem: an acute exacerbation sp3 Symptoms: have worsened sp3 Bed/Room Type: Standard sp3 Hospitalization Status: Inpatient Admission(07/03/23 15:07) bd Location: Intensive Care Unit(07/03/23 15:07) bd Room Assignment: 2-(07/03/23 15:07) bd Diagnosis - COPD exacerbation, hypoxia sp3 Forms: - Medication Reconciliation Form sp3 - SBAR form sp3 Signatures: Dispatcher [employer] EDRoseanne Briceño Lauren, RN RN ld1 Delmar Leblanc MD MD sp3 Corrections: (The following items were deleted from the chart) 11:50 11:50 Ativan IVP 1 mg IVP once ordered. sp3 sp3 15: 12:27 Observation sp3 bd 15: 12:27 Telemetry/MedSurg (observation) sp3 bd : 12:27 sp3 bd
--- NOTE | 2023-07-03 12:28 | ER ---
Nurse's Notes [facility] Name: Fariba Payne Age: 52 yrs Sex: Female : 1970 Arrival Date: 07/03/2023 Time: 10:23 Bed 13 Private MD: Diagnosis: COPD exacerbation, hypoxia Presentation: 07/03 10:36 Chief complaint: EMS states: toned out to patient home for altered mental status and ld1 shortness of breath. Patient displaying AMS X 2 days. Coronavirus screen: At this time, the client does not indicate any symptoms associated with coronavirus-19. Ebola Screen: No symptoms or risks identified at this time. Risk Assessment: Do you want to hurt yourself or someone else? Patient reports no desire to harm self or others. Onset of symptoms was July 03, 2023. 10:36 Method Of Arrival: EMS: [facility] ld1 10:36 Acuity: EMPERATRIZ 3 ld1 12:11 Acuity: EMPERATRIZ 2 iw 15:54 Initial Sepsis Screen: Does the patient meet any 2 criteria? No. Patient's initial mb9 sepsis screen is negative. Does the patient have a suspected source of infection? No. Patient's initial sepsis screen is negative. Triage Assessment: 10:38 General: Appears in no apparent distress. uncomfortable, Behavior is anxious. Pain: ld1 Unable to use pain scale. Patient is disoriented. EENT: No signs and/or symptoms were reported regarding the EENT system. Neuro: Level of Consciousness is awake, alert, obeys commands, Oriented to none. Cardiovascular: Capillary refill < 3 seconds Patient's skin is warm and dry. Rhythm is sinus tachycardia. Respiratory: Airway is patent Respiratory effort is even, labored. GI: Abdomen is flat, non-distended. : No signs and/or symptoms were reported regarding the genitourinary system. Derm: No signs and/or symptoms reported regarding the dermatologic system. Musculoskeletal: No signs and/or symptoms reported regarding the musculoskeletal system. Historical: - Allergies: 10:38 Haldol; ld1 10:38 Morphine; ld1 - PMHx: 10:38 Anxiety; Bipolar disorder; COPD; Manic-Depressive disorder; ld1 - Immunization history:: Adult Immunizations up to date. - Social history:: Smoking status: Patient reports the use of cigarette tobacco products, smokes one-half pack cigarettes per day, Patient uses street drugs, marijuana. Screenin:40 [facility] ED Fall Risk Assessment (Adult) History of falling in the last 3 months, ld1 including since admission No falls in past 3 months (0 pts). Abuse screen: Denies threats or abuse. Denies injuries from another. Nutritional screening: No deficits noted. Tuberculosis screening: No symptoms or risk factors identified. Assessment: 10:40 Reassessment: See triage assessment. ld1 11:49 Reassessment: Pt unable to follow commands - displaying confusing, trying to climb out ld1 of bed, pulling off cords, pulling off oxygen mask/canula. Sitter placed at bedside, safety measures in place. Notified ERP. See MAR for orders. 12:40 Reassessment: Pt needing constant supervision - trying to climb out of bed. Pulling off ld1 cords, not wanting to wear oxygen. Notified ERP and hospitalist. See MAR for orders. 13:45 Reassessment: No changes from previously documented assessment. Patient and/or family ld1 updated on plan of care and expected duration. Pain level reassessed. Pt continuing to climb out of bed. Pulling off all cords and oxygen. Notified ERP. See MAR for orders. Neuro: Level of Consciousness is awake, confused, Oriented to none. Cardiovascular: Capillary refill < 3 seconds Patient's skin is warm and dry. Rhythm is sinus tachycardia. Respiratory: Airway is patent Respiratory effort is even, labored. 14:17 Reassessment: pt taken to CT scan via stretcher. mb9 Vital Signs: 10:36 Pulse Ox 88% on R/A; ld1 10:40 BP 116 / 88; Pulse 101; Resp 31; Temp 99.1(O); Pulse Ox 90% on 4 lpm NC; Height 5 ft. 2 ld1 in. ; Pain 0/10; 11:50 BP 126 / 108; Pulse 93; Resp 32; Pulse Ox 100% on Nebulizer Mask; ld1 12:40 BP 83 / 68; Pulse 93; Resp 24; Pulse Ox 100% on BiPAP; ld1 13:46 Pulse 108; Resp 28; Pulse Ox 99% on Non-rebreather mask; ld1 14:14 BP 115 / 70; Pulse 77; Resp 18; Pulse Ox 100% on Non-rebreather mask; mb9 10:40 Pain Scale: Adult ld1 ED Course: 10:26 Patient arrived in ED. kc6 10:34 Delmar Leblanc MD is Attending Physician. sp3 10:36 Desire Maya, CROW is Primary Nurse. ld1 10:38 Triage completed. ld1 10:38 Arm band placed on right wrist. ld1 10:40 Patient has correct armband on for positive identification. Placed in gown. Bed in low ld1 position. Call light in reach. Side rails up X2. monitoring engineer on. Pulse ox on. NIBP on. Door closed. Noise minimized. Warm blanket given. 10:40 No provider procedures requiring assistance completed. Inserted saline lock: 20 gauge ld1 in right wrist, using aseptic technique. Blood collected. 11:14 Lactate w/ 2H reflex if indic. Sent. ld1 11:14 Blood Culture Adult (2) Sent. ld1 11:47 XRAY Chest (1 view) In Process Unspecified. EDMS 12:02 daughter.....[phone]. bd 12:26 Marcus Echols is Hospitalizing Provider. sp3 15:53 Patient admitted, IV remains in place. ezio Administered Medications: 11:13 Drug: DuoNeb Nebulize (3:1) (2.5 mg - 0.5 mg) 3 ml Route: Nebulizer; ld1 11:42 Drug: Cefepime IVPB 2 grams Route: IVPB; Rate: 200 ml/hr; Infused Over: 30 mins; Site: ld1 right wrist; 11:49 Drug: Ativan IVP 1 mg Route: IVP; Site: right wrist; ld1 12:40 Follow up: Response: No adverse reaction ld1 11:50 CANCELLED (Duplicate Order): Ativan IVP 1 mg IVP once sp3 12:39 Drug: Ativan IVP 1 mg Route: IVP; Site: right wrist; ld1 13:44 Follow up: Response: No change in condition ld1 13:44 Drug: Geodon IM 10 mg Route: IM; Site: right deltoid; ld1 Medication: 10:40 VIS not applicable for this client. ld1 Outcome: 12:27 Decision to Hospitalize by Provider. sp3 15:53 Admitted to ICU accompanied by nurse, via stretcher, room 2, Report called to ezio Graves RN 15:53 Condition: unchanged 15:53 Instructed on the need for admit. 15:54 Patient left the ED. ezio Signatures: Dispatcher [employer] EDRoseanne Briceño Irene RN Desire Mendiola RN RN ld1 Delmar Leblanc MD MD sp3 Tammi Matthews RN RN kc6 Tiara Chavez RN CROW mb9
[2023-07-03] MEDS ORDERED: HALOPERIDOL LACT 5 MG/ML INJ IV PRN (12:37)
[2023-07-03] MEDS ORDERED: TRAMADOL HCL 50 MG TAB PO PRN (12:56)
[2023-07-03] MEDS ORDERED: ACETAMINOPHEN 325 MG TABLET PO PRN (12:56)
[2023-07-03] MEDS ORDERED: ZIPRASIDONE MESYLA 20 MG/VIAL IM ONE (13:48)
[2023-07-03] MEDS ORDERED: ONDANSETRON 4 MG/2 ML VIAL IV PRN (14:07)
[2023-07-03] MEDS ORDERED: guaiFENesin 100 MG/5 ML UCUP PO PRN (14:12)
--- NOTE | 2023-07-03 14:15 | P.HP ---
Certification for Inpatient Patient admitted to: Inpatient With expected LOS: >2 Midnights Patient will require the following post-hospital care: None Practitioner: I am a practitioner with admitting privileges, knowledge of patient current condition, hospital course, and medical plan of care. Services: Services provided to patient in accordance with Admission requirements found in Title 42 Section 412.3 of the Code of Federal Regulations Patient History Date of Service: 07/03/23 Reason for admission: Shortness of breath History of Present Illness: Patient is a 52-year-old female with a past medical history significant for COPD, bipolar disorder, anxiety disorder, depression who presents with complaint of shortness of breath. Patient is alert and oriented x 2 and confused. Patient unable to provide accurate history. Patient reported that she has been having shortness of breath for the past 2 days. Patient reported associated signs and symptoms of headache and chest tightness. Patient denies any other signs and symptoms. Symptoms are aggravated or relieved by nothing. Patient was brought to the hospital for medical evaluation. Allergies morphine Allergy (Severe, Verified 02/06/18 12:06) Anaphylaxis haloperidol [From Haldol] Allergy (Unknown, Verified 02/08/22 09:11) Unknown Home Medications: risperiDONE [Risperdal 1 mg tab*] 2 mg PO BID #60 tab 02/10/18 Venlafaxine HCl [Venlafaxine HCl ER] 75 mg PO BREAKFAST 02/07/22 Levothyroxine [Synthroid] 100 mcg PO [id number] 04/30/23 clonazePAM [Klonopin*] 1 mg PO BID 04/30/23 Albuterol Sulfate [Albuterol Sulfate Hfa] 2 puff IH Q4H 05/01/23 Fluticasone/Umeclidin/Vilanter [Trelegy Ellipta 100-62.5-25] 1 puff IH DAILY 05/01/23 Tramadol HCl/Acetaminophen [Ultracet Tablet] 1 each PO Q6H PRN #1 05/01/23 Amitriptyline [Elavil] 100 mg PO BEDTIME 07/03/23 Pantoprazole [Protonix Tab] 40 mg PO PRN 07/03/23 - Past Medical/Surgical History Diabetic: No -: hypothyroidism -: depression -: bipolar -: COPD -: hypothyroid -: asthma -: Schizoaffective -: Insomnia -: radiation to thyroid - Family History Father Notes: patient intubated/sedated - Social History Smoking Status: Unknown if ever smoked Alcohol use: No CD- Drugs: No Caffeine use: Yes Place of Residence: Home Review of Systems is unable to be obtained (Unable to assess. Patient confused.) Physical Examination - Physical Exam General: Alert, Oriented x2, Mild distress, Confused HEENT: Atraumatic, PERRLA, Mucous membr. moist/pink, EOMI, Sclerae nonicteric Neck: Supple, 2+ carotid pulse no bruit, No LAD, Without JVD or thyroid abnormality Respiratory: Diminished Cardiovascular: No edema, Regular rate/rhythm, Normal S1 S2 Capillary refill: <2 Seconds Gastrointestinal: Normal bowel sounds, Non-distended, No tenderness Musculoskeletal: No clubbing, No tenderness Integumentary: No rashes, No significant lesion Neurological: Normal speech, Normal strength at 5/5 x4 extr, Normal tone, Normal affect Lymphatics: No axilla or inguinal lymphadenopathy - Studies Laboratory Data (last 24 hrs) 07/03/23 07/03/23 07/03/23 11:11 11:11 11:11 WBC 9.50 Hgb 10.1 L Hct 33.1 L Plt Count 345 PT 11.5 INR 1.05 Sodium 139 Potassium 2.9 L BUN 3 L Creatinine 0.83 Glucose 97 Magnesium 2.0 Total Bilirubin 0.4 AST 13 L ALT 15 Alkaline Phosphatase 95 Assessment and Plan - Plan --Acute on chronic COPD exacerbation. Patient placed on steroids, neb treatment with Atrovent and albuterol. Continue O2 therapy as needed. --Moderate persistent asthma with acute exacerbation. Continue current treatment regimen. --Acute encephalopathy. Unclear etiology. CT head and UA pending. Continue supportive care. --Hypokalemia. Replete as needed. --GERD. Continue Protonix . --Depression\anxiety disorder\bipolar disorder\schizoaffective disorder. Continue home medications. --Hypothyroidism. Continue Synthroid. -- Anemia of chronic disease. H&H stable. Will continue to monitor hemoglobin and transfuse if less than 7.0. --CKD 2. Stable. We will continue to monitor renal functions. --Insomnia. Patient placed on melatonin as needed. -- DVT prophylaxis with Lovenox subQ Discharge Plan: Home Plan to discharge in: Greater than 2 days - Advance Directives Does patient have a Living Will: No Does patient have a Durable POA for Healthcare: No - Code Status/Comfort Care Code Status Assessed: Yes Physician Review: Patient Assessed, Agree with Above Assessment and Plan Critical Care: No
[2023-07-03] MEDS ORDERED: POTASSIUM CL SA 10 MEQ TAB PO ONE (14:17)
--- NOTE | 2023-07-03 14:42 | RAD REPORT ---
EXAM DESCRIPTION: CT - Thorax Wo Con - 07/03/2023 2:22 pm CLINICAL HISTORY: R O PNA COMPARISON: CTANGIO CHEST FOR PE dated 10/14/2013; THORAX W CONTRAST dated 10/07/2008 FINDINGS: Chest Wall: No suspicious thyroid nodules or pathologic lymphadenopathy. Lungs: No acute abnormality. Mild paraseptal emphysema. Pleura: No significant effusions or pneumothorax. Mediastinum/barbara: No pathologic lymphadenopathy. Thickened mid to distal esophagus presumably reflect ing esophagitis Pulmonary arteries/Aorta: Limited evaluation without contrast. No aortic aneurysm. Heart: No significant pericardial effusion. Mild to moderate cardiomegaly. Coronary artery calcificat ions. Upper abdomen: Cholecystectomy. Bones: No acute abnormality. All CT scans are performed using dose optimization technique as appropriate and may include automated exposure control or mA/KV adjustment according to patient size. IMPRESSION: No acute findings within chest. Specifically, no evidence of pneumonia. Esophageal wall thickening could reflect esophagitis.
[2023-07-03] MEDS: GUAIFENESIN 600 MG SA TAB PO SCH ×2 (15:00→20:49)
[2023-07-03 15:07] LABS: Magnesium 1.9 mg/dL (1.6-2.4); Phosphorus 2.7 mg/dL (2.5-4.9); Thyroid Stimulating Hormone 0.762 uIU/mL (0.358-3.740)
[2023-07-03] MEDS: METHYLPREDNISOLONE 125 MG INJ IV SCH (17:25)
[2023-07-03] MEDS: ENOXAPARIN 40 MG/0.4 ML SQ SCH (17:26)
[2023-07-03] MEDS: KCL 20 MEQ/100 mL IVPB 20 MEQ/100 ML BAG IV SCH ×3 (17:26→21:52)
[2023-07-03] MEDS ORDERED: SODIUM CHLORIDE 0.9% 10ML INJ IV PRN (19:53)
[2023-07-03] MEDS: LORazepam 2 MG/ML VIAL IV PRN (20:01)
[2023-07-03] MEDS ORDERED: MELATONIN 5 MG TABLET PO PRN (20:11)
[2023-07-03] MEDS: IPRATROPIUM BROM 0.5MG/2.5ML NEB SCH (20:30)
[2023-07-03] MEDS: ALBUTEROL 2.5 MG/3 ML NEB SOL NEB SCH (20:30)
[2023-07-03] MEDS: RISPERIDONE 1 MG TABLET PO SCH (20:48)
[2023-07-03] MEDS: PANTOPRAZOLE 40 MG INJ IVP SCH (20:48)
[2023-07-03] MEDS: clonazePAM 1 MG TAB PO SCH (20:49)
[2023-07-03] MEDS: AMITRIPTYLINE 50 MG TAB PO SCH (20:49)
[2023-07-04] MEDS: METHYLPREDNISOLONE 125 MG INJ IV SCH ×3 (00:59→16:26)
[2023-07-04] MEDS: ALBUTEROL 2.5 MG/3 ML NEB SOL NEB SCH ×4 (01:40→20:00)
[2023-07-04] MEDS: IPRATROPIUM BROM 0.5MG/2.5ML NEB SCH ×4 (01:40→20:00)
[2023-07-04] MEDS: LORazepam 2 MG/ML VIAL IV PRN (04:23)
[2023-07-04 04:36] LABS: Absolute Lymphocytes (CBC) 0.6 K/uL (0.7-4.9); Hematocrit 33.8 % (36.0-45.0); MCV 73.8 fL (80-100); MPV 7.7 fL (7.6-11.3); Platelets 334 thou/uL (152-406); RBC Red Blood Cell Count 4.58 M/uL (3.86-4.86)
[2023-07-04 05:21] LABS: Potassium 3.9 mEq/L (3.5-5.1)
[2023-07-04] MEDS: LEVOTHYROXINE SOD 0.1 MG TAB PO SCH (05:25)
[2023-07-04 05:32] LABS: Specific Gravity 1.006 (1.005-1.030); Urine Bacteria None Seen /HPF (<20); Urine Bilirubin NEGATIVE (Negative); Urine Blood Negative (Negative); Urine Clarity Clear (Clear); Urine Color Colorless (Yellow); Urine Glucose NEGATIVE (Negative); Urine Protein NEGATIVE (Negative); Urine RBC None Seen /HPF (None Seen); Urine Urobilinogen Normal (Normal); Urine pH 6.5 (5.0-7.0)
[2023-07-04 05:45] LABS: Magnesium 2.1 mg/dL (1.6-2.4); Phosphorus 2.7 mg/dL (2.5-4.9)
[2023-07-04 06:35] LABS: Blood Morphology Comment NOTED (NOT SEEN); Platelet Estimate ADEQ
[2023-07-04 06:36] LABS: Anisocytosis 1+; Hypochromasia 1+; Polychromasia 1+
[2023-07-04] MEDS ORDERED: POTASSIUM 25 MEQ EFFERV TAB PO ONE (06:59)
--- NOTE | 2023-07-04 08:30 | RAD REPORT ---
EXAM DESCRIPTION: CT - Head Brain Wo Cont - 07/04/2023 8:07 am CLINICAL HISTORY: AMS Headache, drowsiness COMPARISON: Head Brain Wo Cont dated 02/06/2018; HEAD BRAIN W O CONTRAST dated 01/01/2015 TECHNIQUE: All CT scans are performed using dose optimization technique as appropriate and may inclu de automated exposure control or mA/KV adjustment according to patient size. FINDINGS: No intracranial hemorrhage, hydrocephalus or extra-axial fluid collection.No areas of brai n edema or evidence of midline shift. The paranasal sinuses and right mastoid are clear. The calvarium is intact. Mild left mastoid effusio n. IMPRESSION: No acute intracranial abnormality. Mild left mastoid effusion.
[2023-07-04] MEDS: Fluticasone/Umeclidin/Vilanter [Trelegy Ellipta 100-62.5-25] IH SCH (09:00)
[2023-07-04] MEDS: PANTOPRAZOLE 40 MG INJ IVP SCH (09:10)
[2023-07-04] MEDS: NICOTINE 14 MG/PAT TD SCH (09:11)
[2023-07-04] MEDS: ENOXAPARIN 40 MG/0.4 ML SQ SCH (09:11)
[2023-07-04] MEDS: VENLAFAXINE HCL XR 75 MG CAP PO SCH (09:12)
[2023-07-04] MEDS: GUAIFENESIN 600 MG SA TAB PO SCH ×2 (09:12→20:22)
[2023-07-04] MEDS: clonazePAM 1 MG TAB PO SCH ×2 (09:12→20:22)
[2023-07-04] MEDS: RISPERIDONE 1 MG TABLET PO SCH ×2 (09:12→20:22)
--- NOTE | 2023-07-04 13:09 | P.PN ---
Subjective Date of Service: 07/04/23 Chief Complaint: Shortness of breath Patient states she feels much better today. SaO2 is 100% on 3 L oxygen by nasal cannula. No recorded fever. Physical Examination - Vital Signs Temperature: 97.6 F Blood Pressure: 109/69 Pulse: 93 Respirations: 29 Pulse Ox (%): 97 - Studies Microbiology Data (last 24 hrs): 07/03/23 11:35 Blood - Blood Anaerobic Blood Culture - Final Assessment And Plan - Plan Physical Exam General: Alert, Oriented x 3. Mildly confused. Neck: Supple, 2+ carotid pulse no bruit, No LAD, Without JVD or thyroid abnormality Respiratory: Diminished, bilateral scattered wheezes Cardiovascular: No edema, Regular rate/rhythm, Normal S1 S2 Gastrointestinal: Normal bowel sounds, Non-distended, No tenderness Musculoskeletal: No clubbing, No tenderness Integumentary: No rashes, No significant lesion Neurological: Normal speech, Normal strength at 5/5 x4 extr, Normal tone, Normal affect Lymphatics: No axilla or inguinal lymphadenopathy Plan Acute on chronic COPD exacerbation/moderate persistent asthma: Continue steroids, neb treatment with Atrovent and albuterol. Wean off oxygen as tolerated Acute metabolic encephalopathy. CT head negative, UA shows no UTI. Encephalopathy likely secondary to hypoxia. Check arterial blood gas. continue supportive care. Hypokalemia. Replete as needed. GERD. Continue Protonix . Depression\anxiety disorder\bipolar disorder\schizoaffective disorder. Continue home medications. Hypothyroidism. Continue Synthroid. Anemia of chronic disease. H&H stable. Will continue to monitor hemoglobin and transfuse if less than 7.0. DVT prophylaxis with Lovenox subQ
[2023-07-04 13:31] VITALS: BMI 32.8
--- NOTE | 2023-07-04 14:13 | EKG ---
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
[2023-07-04] MEDS: CEFTRIAXONE 1,000 MG in NA CHLORIDE 0.9% 50 ML IVPB SCH (14:49)
[2023-07-04] MEDS: AZITHROMYCIN IV 500 MG in NA CHLORIDE 0.9% 250 ML IVPB SCH (14:50)
[2023-07-04 16:29] LABS: Arterial Blood Carboxyhemoglob 0.9 % (0-1.5); Blood Gas Oxyhemoglobin 95.2 % (94-97); Blood O2 Saturation 97.2 % (92-98.5)
[2023-07-04] MEDS: AMITRIPTYLINE 50 MG TAB PO SCH (20:22)
[2023-07-05] MEDS: METHYLPREDNISOLONE 125 MG INJ IV SCH ×2 (01:30→09:01)
[2023-07-05] MEDS: ALBUTEROL 2.5 MG/3 ML NEB SOL NEB SCH ×4 (01:40→20:30)
[2023-07-05] MEDS: IPRATROPIUM BROM 0.5MG/2.5ML NEB SCH ×4 (01:40→20:30)
[2023-07-05] MEDS: LEVOTHYROXINE SOD 0.1 MG TAB PO SCH (06:36)
[2023-07-05] MEDS: ENOXAPARIN 40 MG/0.4 ML SQ SCH (09:00)
[2023-07-05] MEDS: GUAIFENESIN 600 MG SA TAB PO SCH ×2 (09:00→20:58)
[2023-07-05] MEDS: clonazePAM 1 MG TAB PO SCH ×2 (09:00→20:58)
[2023-07-05] MEDS: Fluticasone/Umeclidin/Vilanter [Trelegy Ellipta 100-62.5-25] IH SCH (09:00)
[2023-07-05] MEDS: RISPERIDONE 1 MG TABLET PO SCH ×2 (09:00→20:59)
[2023-07-05] MEDS: CEFTRIAXONE 1,000 MG in NA CHLORIDE 0.9% 50 ML IVPB SCH (09:01)
[2023-07-05] MEDS: AZITHROMYCIN IV 500 MG in NA CHLORIDE 0.9% 250 ML IVPB SCH (09:01)
[2023-07-05] MEDS: PANTOPRAZOLE 40 MG INJ IVP SCH (09:02)
[2023-07-05] MEDS: VENLAFAXINE HCL XR 75 MG CAP PO SCH (09:16)
[2023-07-05] MEDS: NICOTINE 14 MG/PAT TD SCH (09:17)
--- NOTE | 2023-07-05 12:08 | P.PN ---
Subjective Date of Service: 07/05/23 Chief Complaint: Shortness of breath Patient has no new complaint. Her speech is tangential but alert and oriented x3. She is currently tolerating room air. No recorded fever. She is tolerating her diet. Physical Examination - Vital Signs Temperature: 96.8 F Blood Pressure: 117/76 Pulse: 73 Respirations: 25 Pulse Ox (%): 96 - Studies Microbiology Data (last 24 hrs): 07/03/23 11:35 Blood - Blood Anaerobic Blood Culture - Final Assessment And Plan - Plan Physical Exam General: Alert, Oriented x 3. Neck: Supple, 2+ carotid pulse no bruit, No LAD, Without JVD or thyroid abno rmality Respiratory: Clear to auscultation bilaterally. Cardiovascular: No edema, Regular rate/rhythm, Normal S1 S2 Gastrointestinal: Normal bowel sounds, Non-distended, No tenderness Musculoskeletal: No clubbing, No tenderness Integumentary: No rashes, No significant lesion Neurological: Normal speech, Normal strength at 5/5 x4 extr, Normal tone, Normal affect Lymphatics: No axilla or inguinal lymphadenopathy Assessment and plan Acute on chronic COPD exacerbation/moderate persistent asthma: Clinically improved. Patient is tolerating room air. Arterial blood gas is unremarkable. Transition IV steroids to p.o., neb treatment with Atrovent and albuterol. Oral antibiotics Seizure affective disorder/bipolar disorder with psychotic features: CT head negative, UA shows no UTI. Chest x-ray is clear. Patient is not suicidal or homicidal. Continue home medications-Risperdal and venlafaxine. Consult psychiatry. I spoke to Dr. Medley. Continue supportive care. Hypokalemia. Replete as needed. GERD. Continue Protonix . Hypothyroidism. TSH is within normal limit. Continue Synthroid. Anemia of chronic disease. H&H stable. Will continue to monitor hemoglobin and transfuse if less than 7.0. DVT prophylaxis with Lovenox subQ
[2023-07-05] MEDS: AMOX/K CLAV 875 MG TAB PO SCH (20:58)
[2023-07-05] MEDS: AMITRIPTYLINE 50 MG TAB PO SCH (20:58)
[2023-07-05] MEDS: predniSONE 20 MG TAB PO SCH (20:58)
[2023-07-06] MEDS: ALBUTEROL 2.5 MG/3 ML NEB SOL NEB SCH ×4 (01:40→20:40)
[2023-07-06] MEDS: IPRATROPIUM BROM 0.5MG/2.5ML NEB SCH ×4 (01:40→20:40)
[2023-07-06] MEDS: LEVOTHYROXINE SOD 0.1 MG TAB PO SCH (06:33)
[2023-07-06] MEDS: RISPERIDONE 1 MG TABLET PO SCH ×2 (07:48→20:11)
[2023-07-06] MEDS: predniSONE 20 MG TAB PO SCH ×2 (07:48→20:11)
[2023-07-06] MEDS: PANTOPRAZOLE 40 MG INJ IVP SCH (07:48)
[2023-07-06] MEDS: GUAIFENESIN 600 MG SA TAB PO SCH ×2 (07:48→20:12)
[2023-07-06] MEDS: clonazePAM 1 MG TAB PO SCH ×2 (07:49→20:11)
[2023-07-06] MEDS: VENLAFAXINE HCL XR 75 MG CAP PO SCH (07:49)
[2023-07-06] MEDS: ENOXAPARIN 40 MG/0.4 ML SQ SCH (07:49)
[2023-07-06] MEDS: NICOTINE 14 MG/PAT TD SCH (07:49)
[2023-07-06] MEDS: AMOX/K CLAV 875 MG TAB PO SCH ×2 (07:49→20:11)
[2023-07-06] MEDS: Fluticasone/Umeclidin/Vilanter [Trelegy Ellipta 100-62.5-25] IH SCH (09:00)
--- NOTE | 2023-07-06 11:55 | P.PN ---
Subjective Date of Service: 07/06/23 Chief Complaint: Shortness of breath Patient has no new complaint. No reported agitation. No recorded fever. She is tolerating her diet. Physical Examination - Vital Signs Temperature: 98 F Blood Pressure: 126/91 Pulse: 96 Respirations: 20 Pulse Ox (%): 92 Assessment And Plan - Plan Physical Exam General: Alert, Oriented x 3. Neck: Supple, 2+ carotid pulse no bruit, No LAD, Without JVD or thyroid abnormality Respiratory: Clear to auscultation bilaterally. Cardiovascular: No edema, Regular rate/rhythm, Normal S1 S2 Gastrointestinal: Normal bowel sounds, Non-distended, No tenderness Musculoskeletal: No clubbing, No tenderness Integumentary: No rashes, No significant lesion Neurological: Normal speech, Normal strength at 5/5 x4 extr, Normal tone, Normal affect Lymphatics: No axilla or inguinal lymphadenopathy Assessment and plan Acute on chronic COPD exacerbation/moderate persistent asthma: Clinically improved. Arterial blood gas is unremarkable. IV Solu-Medrol transitioned to to oral prednisone. Continue neb treatment with Atrovent and albuterol. Oral Augmentin. Seizure affective disorder/bipolar disorder with psychotic features: CT head negative, UA shows no UTI. Chest x-ray is clear. Patient is not suicidal or homicidal. Continue home medications-Risperdal and venlafaxine. Consult psychiatry. I spoke to Dr. Medley-he will see patient on Saturday. Continue supportive care. GERD. Continue Protonix . Hypothyroidism. TSH is within normal limit. Continue Synthroid. Anemia of chronic disease. H&H stable. DVT prophylaxis with Lovenox subQ
[2023-07-06] MEDS: AMITRIPTYLINE 50 MG TAB PO SCH (20:11)
[2023-07-07] MEDS: IPRATROPIUM BROM 0.5MG/2.5ML NEB SCH ×4 (02:45→20:25)
[2023-07-07] MEDS: ALBUTEROL 2.5 MG/3 ML NEB SOL NEB SCH ×4 (02:45→20:25)
[2023-07-07 04:46] LABS: Absolute Lymphocytes (CBC) 0.8 K/uL (0.7-4.9); Hematocrit 31.3 % (36.0-45.0); Lymphocytes % 11.7 % (15.3-44.8); MCV 72.3 fL (80-100); MPV 7.6 fL (7.6-11.3); Platelets 320 thou/uL (152-406); RBC Red Blood Cell Count 4.32 M/uL (3.86-4.86)
[2023-07-07 04:58] LABS: Potassium 4.4 mEq/L (3.5-5.1)
[2023-07-07] MEDS: LEVOTHYROXINE SOD 0.1 MG TAB PO SCH (06:10)
[2023-07-07] MEDS: GUAIFENESIN 600 MG SA TAB PO SCH ×2 (08:11→22:34)
[2023-07-07] MEDS: AMOX/K CLAV 875 MG TAB PO SCH ×2 (08:11→22:33)
[2023-07-07] MEDS: clonazePAM 1 MG TAB PO SCH ×2 (08:11→22:33)
[2023-07-07] MEDS: predniSONE 20 MG TAB PO SCH ×2 (08:11→22:34)
[2023-07-07] MEDS: VENLAFAXINE HCL XR 75 MG CAP PO SCH (08:11)
[2023-07-07] MEDS: PANTOPRAZOLE 40MG TABLET PO SCH (08:12)
[2023-07-07] MEDS: NICOTINE 14 MG/PAT TD SCH (08:12)
[2023-07-07] MEDS: Fluticasone/Umeclidin/Vilanter [Trelegy Ellipta 100-62.5-25] IH SCH (08:12)
[2023-07-07] MEDS: ENOXAPARIN 40 MG/0.4 ML SQ SCH (08:12)
[2023-07-07] MEDS: RISPERIDONE 1 MG TABLET PO SCH ×2 (08:12→22:34)
--- NOTE | 2023-07-07 12:13 | P.PN ---
Subjective Date of Service: 07/07/23 Chief Complaint: Shortness of breath Patient has no new complaint. No reported agitation. No recorded fever. No confusion noted. Physical Examination - Vital Signs Temperature: 97.2 F Blood Pressure: 114/63 Pulse: 71 Respirations: 18 Pulse Ox (%): 100 Assessment And Plan - Plan Physical Exam General: Alert, Oriented x 3. Neck: Supple, 2+ carotid pulse no bruit, No LAD, Without JVD or thyroid abnormality Respiratory: Clear to auscultation bilaterally. Cardiovascular: No edema, Regular rate/rhythm, Normal S1 S2 Gastrointestinal: Normal bowel sounds, Non-distended, No tenderness Musculoskeletal: No clubbing, No tenderness Integumentary: No rashes, No significant lesion Neurological: Normal speech, Normal strength at 5/5 x4 extr, Normal tone, Normal affect Lymphatics: No axilla or inguinal lymphadenopathy Assessment and plan Acute on chronic COPD exacerbation/moderate persistent asthma: Clinically improved. Arterial blood gas is unremarkable. IV Solu-Medrol transitioned to to oral prednisone. Continue neb treatment with Atrovent and albuterol. Oral Augmentin. Seizure affective disorder/bipolar disorder with psychotic features: CT head negative, UA shows no UTI. Chest x-ray is clear. Patient is not suicidal or homicidal. Continue home medications-Risperdal and venlafaxine. Consult psychiatry. I spoke to Dr. Medley-he will see patient on Saturday. Continue supportive care. GERD. Continue Protonix . Hypothyroidism. TSH is within normal limit. Continue Synthroid. Anemia of chronic disease. H&H stable. DVT prophylaxis with Lovenox subQ
[2023-07-07] MEDS: AMITRIPTYLINE 50 MG TAB PO SCH (22:34)
[2023-07-08] MEDS: IPRATROPIUM BROM 0.5MG/2.5ML NEB SCH ×3 (02:00→13:55)
[2023-07-08] MEDS: ALBUTEROL 2.5 MG/3 ML NEB SOL NEB SCH ×3 (02:00→13:55)
[2023-07-08 04:55] LABS: Absolute Lymphocytes (CBC) 1.4 K/uL (0.7-4.9); Hematocrit 34.1 % (36.0-45.0); Lymphocytes % 17.6 % (15.3-44.8); MPV 7.4 fL (7.6-11.3); Platelets 333 thou/uL (152-406); RBC Red Blood Cell Count 4.74 M/uL (3.86-4.86)
[2023-07-08 05:08] LABS: Magnesium 2.1 mg/dL (1.6-2.4); Phosphorus 2.8 mg/dL (2.5-4.9); Potassium 4.8 mEq/L (3.5-5.1)
[2023-07-08] MEDS: LEVOTHYROXINE SOD 0.1 MG TAB PO SCH (06:21)
[2023-07-08] MEDS: Fluticasone/Umeclidin/Vilanter [Trelegy Ellipta 100-62.5-25] IH SCH (09:00)
[2023-07-08] MEDS: AMOX/K CLAV 875 MG TAB PO SCH (09:21)
[2023-07-08] MEDS: NICOTINE 14 MG/PAT TD SCH (09:21)
[2023-07-08] MEDS: VENLAFAXINE HCL XR 75 MG CAP PO SCH (09:22)
[2023-07-08] MEDS: RISPERIDONE 1 MG TABLET PO SCH (09:22)
[2023-07-08] MEDS: ENOXAPARIN 40 MG/0.4 ML SQ SCH (09:22)
[2023-07-08] MEDS: clonazePAM 1 MG TAB PO SCH (09:22)
[2023-07-08] MEDS: PANTOPRAZOLE 40MG TABLET PO SCH (09:23)
[2023-07-08] MEDS: GUAIFENESIN 600 MG SA TAB PO SCH (09:23)
[2023-07-08] MEDS: predniSONE 20 MG TAB PO SCH (09:23)
[2023-07-08 15:00] VITALS: TEMP 97.5
[2023-07-08 15:27] VITALS: O2SAT 98
[2023-07-08 16:55] VITALS: BP 116/65
--- NOTE | 2023-07-08 17:33 | P.DS ---
Admission Date: 07/03/23 Discharge Date: 07/08/23 Disposition: [facility] HOME/HOME HEALTH CARE Discharge Condition: FAIR Reason for Admission: Shortness of breath Brief History of Present Illness: Patient is a 52-year-old female with a past medical history significant for COPD, bipolar disorder, anxiety disorder, depression who presents with complaint of shortness of breath. Patient was confused on arrival. Patient unable to provide accurate history. Patient reported shortness of breath for 2 days. Patient reported associated signs and symptoms of headache and chest tightness. Chest x-ray and chest CT did not show any acute disease. She was hypoxic on room air in the ED. Patient diagnosis COPD exacerbation and hospitalized for further management. Hospital Course: Acute on chronic COPD exacerbation/moderate persistent asthma/acute respiratory failure with hypoxia: Patient admitted to the medical floor and treated with IV Solu-Medrol, scheduled nebs and antibiotics. Arterial blood gas is unremarkable. Patient respiratory status is improved. She was weaned off oxygen to room air. IV Solu-Medrol transitioned to to oral prednisone. Antibiotics transition to oral Augmentin. No significant CO2 retention Schizoaffective disorder/bipolar disorder with psychotic features: CT head negative, UA shows no UTI. Chest x-ray is clear. Patient is not suicidal or homicidal. Patient reported noncompliance with her medications and she exhibited psychotic symptoms during the hospital stay. Continue home medication-Risperdal and venlafaxine Consulted psychiatry. I spoke to Dr. Medley who evaluated patient and recommended to increase her venlafaxine dose from 75 mg daily to 150 mg daily for depression and to maintain Risperdal at 2 mg twice daily. GERD. Continue Protonix . Hypothyroidism. TSH is within normal limit. Continue Synthroid. Anemia of chronic disease. H&H was stable. Overall patient does clinically improve, alert and oriented x3, and no longer exhibiting psychotic features. She is deemed clinically stable for discharge. Family updated. Vital Signs/Physical Exam: Temp Pulse Resp BP Pulse Ox 97.5 F 92 H 16 116/65 92 07/08/23 16:00 07/08/23 16:00 07/08/23 16:00 07/08/23 16:00 07/08/23 16:00 General: Alert, In no apparent distress, Oriented x3 HEENT: Mucous membr. moist/pink Neck: JVD not distended Respiratory: Clear to auscultation bilaterally, Normal air movement Cardiovascular: Regular rate/rhythm, Normal S1 S2 Gastrointestinal: Normal bowel sounds, Soft and benign, Non-distended, No tenderness Musculoskeletal: No swelling Integumentary: No rashes Neurological: Normal strength at 5/5 x4 extr, Cranial nerves 3-12 intact Laboratory Data at Discharge: WBC 7.80 thou/uL (4.3-10.9) 07/08/23 04:09 Hgb 10.5 g/dL (12.0-15.0) L 07/08/23 04:09 Hct 34.1 % (36.0-45.0) L 07/08/23 04:09 Plt Count 333 thou/uL (152-406) 07/08/23 04:09 PT 11.5 SECONDS (9.5-12.5) 07/03/23 11:11 INR 1.05 07/03/23 11:11 Sodium 135 mEq/L (136-145) L 07/08/23 04:09 Potassium 4.8 mEq/L (3.5-5.1) 07/08/23 04:09 BUN 20 mg/dL (7-18) H 07/08/23 04:09 Creatinine 0.71 mg/dL (0.55-1.02) 07/08/23 04:09 Glucose 100 mg/dL (74-106) 07/08/23 04:09 Phosphorus 2.8 mg/dL (2.5-4.9) 07/08/23 04:09 Magnesium 2.1 mg/dL (1.6-2.4) 07/08/23 04:09 Total Bilirubin 0.4 mg/dL (0.2-1.0) 07/03/23 11:11 AST 13 U/L (15-37) L 07/03/23 11:11 ALT 15 U/L (13-56) 07/03/23 11:11 Alkaline Phosphatase 95 U/L (45-117) 07/03/23 11:11 Triglycerides 142 mg/dL (<150) 07/04/23 04:15 Cholesterol 166 mg/dL (<200) 07/04/23 04:15 HDL Cholesterol 59 mg/dL (40-60) 07/04/23 04:15 Cholesterol/HDL Ratio 2.81 07/04/23 04:15 Home Medications: Levothyroxine [Synthroid*] 100 mcg PO [id number] 04/30/23 clonazePAM [Klonopin*] 1 mg PO BID 04/30/23 Albuterol Sulfate [Albuterol Sulfate Hfa] 2 puff IH Q4H 05/01/23 Fluticasone/Umeclidin/Vilanter [Trelegy Ellipta 100-62.5-25] 1 puff IH DAILY 05/01/23 Tramadol HCl/Acetaminophen [Ultracet Tablet] 1 each PO Q6H PRN #1 05/01/23 Amitriptyline [Elavil*] 100 mg PO BEDTIME 07/03/23 Pantoprazole [Protonix Tab*] 40 mg PO PRN 07/03/23 Amox/Clavulanate [Augmentin 875-125 Tab*] 875 mg PO BID #10 tab 07/08/23 Ipratropium/Albuterol Sulfate [Iprat-Albut 0.5-3(2.5) mg/3 ml] 3 ml IH QID PRN #120 amp 07/08/23 Nebulizer 1 each QID #1 ea 07/08/23 Venlafaxine HCl [Effexor Xr] 150 mg PO DAILY #30 cap 07/08/23 predniSONE [Deltasone*] 10 mg PO DAILY #30 tab 07/08/23 risperiDONE [Risperdal 1 mg tab*] 2 mg PO BID #120 tab 07/08/23 New Medications: Amox/Clavulanate [Augmentin 875-125 Tab*] 875 mg PO BID #10 tab predniSONE [Deltasone*] 10 mg PO DAILY #30 tab Venlafaxine HCl [Effexor Xr] 150 mg PO DAILY #30 cap Ipratropium/Albuterol Sulfate [Iprat-Albut 0.5-3(2.5) mg/3 ml] 3 ml IH QID PRN #120 amp PRN Reason: Shortness Of Breath Nebulizer 1 each QID #1 ea risperiDONE [Risperdal 1 mg tab*] 2 mg PO BID #120 tab Diet: AHA Activity: Fall precautions Followup: oFrest Emmanuel MD [Primary Care Provider] - 1-2 Weeks Time spent managing pt's care (in minutes): 36
--- NOTE | 2023-07-09 13:32 | CON ---
Date of Consultation: 07/07/2023 Reason For Consult: Evaluate patient for psychosis and make medication recommendations. History Of Present Illness: Ms. Fariba Payne is a 52-year-old female with psychiatric h istory significant for schizophrenia, schizoaffective disorder, depression, and anxiety. She also plaza s past medical history significant for COPD. She was admitted via the ER on account of respiratory d istress at the time of COPD exacerbation. On admission, was also noted to be paranoid and had disorg anized thought process. On evaluation today, the patient was met at the bed in her room. Initially, on the phone had a conversation with the daughter. She endorsed chronic history of schizophrenia an d schizoaffective disorder. States that she sees an outpatient psychiatrist and had been on medicati on since 2017. States she is fairly stable on her medication, but few weeks prior to this admission in the ER, reports she has been missing doses of her medications. She stated that she is on Risperda l 2 mg b.i.d. and venlafaxine 75 mg p.o. daily, mg p.o. q.h.s. for sleep. The patient sta nicole she was trying to harm her. Patient was also hearing voices, which were very derogato ry and threatening and visual hallucinations. Since admission, she has not had any episode of audito ry hallucination and has not had any episode of visual hallucination. She denies being paranoid, adm its to feeling depressed, which she described as depressed mood, lack of motivation and energy. She started feeling hopeless, but denies suicidal and homicidal ideation. She denies past history of faiza cidal attempts. States she lives with a roommate and she has a daughter who is 30 years old and 4 gr and kids. She denies history of manic or hypermanic episodes. No alcohol or substance abuse. Admit s to having anxiety, which is described as excessive worrying. She panic attacks. Hence, the need for the stay asleep. She states she is fairly regular in keeping her appointmen ts with her psychiatrist and hoped to follow up with him on discharge. Physical Examination: Vital Signs: Blood pressure 150/68, pulse rate 99, O2 sat on room air 95%, temperature is 97.5. Mental Status Examination: The patient is a fairly nourished female, dressed in hospital g own, lying in bed, not in any obvious active distress. She is cooperative with interview. Alert and oriented x3. Psychomotor activity is normal. Speech is spontaneous, soft, normal rate and volume. No perseveration observed. Mood is described as depressed. Affect is mood congruent. Thought proc ess is mostly linear, at times circumstantial. No disorganized speech noted. No flight of ideas not ed either. Thought content, no delusional thinking. No suicidal or homicidal ideation. No ruminati on of . No auditory or visual hallucination noted at this time. Insight, judgment, and im pulse control is fair. Fund of knowledge fair. Language skills great. Diagnoses: 1.Schizophrenia. 2.Schizoaffective disorder. 3.Depressive disorder, unspecified. 4.Anxiety disorder, unspecified. 5.Delirium. Plan: 1.The patient does not meet criteria for acute inpatient at this time as she is not in da nger to herself and to others. Recommend increasing venlafaxine to 150 mg p.o. daily for depressive symptoms. 2.Recommend continuing risperidone 2 mg p.o. b.i.d. for psychosis. 3.Recommend continue amitriptyline 100 mg p.o. at bedtime for sleep. 4.Recommend the patient to follow up with a psychiatrist within 2 weeks of discharge. 5.Recommend medical team to continue medical treatment. NICOLE/SANDY Voice ID: [id number] Report ID: [id number]
== END 2023-07-08 18:15 | disposition home health service (06) | DRG 190 ==
LOC: ER 10:23 → ERHOLD 12:56 → 3RD-ICU 15:27 → 2ND 07-08 15:15
PROVIDERS: ADMIT Internal Medicine; ATTEND Internal Medicine
DX: J44.1 Chronic obstructive pulmonary disease with (acute) exacerbation (principal); G93.41 Metabolic encephalopathy; J96.01 Acute respiratory failure with hypoxia; J45.41 Moderate persistent asthma with (acute) exacerbation; F05 Delirium due to known physiological condition; E03.9 Hypothyroidism, unspecified; E87.6 Hypokalemia; F41.9 Anxiety disorder, unspecified; N18.2 Chronic kidney disease, stage 2 (mild); D63.1 Anemia in chronic kidney disease; D63.8 Anemia in other chronic diseases classified elsewhere; G47.00 Insomnia, unspecified; F25.0 Schizoaffective disorder, bipolar type; F25.1 Schizoaffective disorder, depressive type; K21.9 Gastro-esophageal reflux disease without esophagitis; F17.210 Nicotine dependence, cigarettes, uncomplicated; Z88.5 Allergy status to narcotic agent; Z79.52 Long term (current) use of systemic steroids; Z79.890 Hormone replacement therapy; Z79.899 Other long term (current) drug therapy
CPT/HCPCS: 36415; 36600; 70450; 71045; 71250; 80048; 80061; 80076; 81001; 82805; 83605; 83735; 83880; 84100; 84132; 84439; 84443; 84484; 85025; 85610; 87040; 93005; 94640; 96372; 96374; 96375; 99285; C9113; J0692; J0696; J1650; J2930; J3480; J3486; J7050; J7512; J7613; J7644

== ENCOUNTER 2023-08-06 06:55 | Day surgery (SDC) | payer OTHER ==
[2023-08-06] MEDS ORDERED: Ringers Lactate 1,000 ML IV ONE (07:30)
[2023-08-06] MEDS ORDERED: LIDOCAINE 1% MPF 30 ML VIAL ONE (08:21)
[2023-08-06] MEDS ORDERED: propofoL 200 MG/20 ML VIAL IV ONE (08:21)
[2023-08-06 09:46] VITALS: TEMP 97.4
[2023-08-06 09:48] VITALS: BP 136/71; O2SAT 99
== END 2023-08-06 09:40 | disposition home or self-care (01) ==
LOC: OR 06:55
PROVIDERS: ATTEND Internal Medicine Gastroenterology
PROC: 0DB78ZX Excision of Stomach, Pylorus, Via Natural or Artificial Opening Endoscopic, Diagnostic (ICD-10-PCS; 2023-08-06)
PROC: 0DB58ZX Excision of Esophagus, Via Natural or Artificial Opening Endoscopic, Diagnostic (ICD-10-PCS; principal; 2023-08-06 08:30)
DX: K31.84 Gastroparesis (principal); R13.10 Dysphagia, unspecified; R11.10 Vomiting, unspecified; R94.5 Abnormal results of liver function studies; R14.0 Abdominal distension (gaseous); R12 Heartburn; R19.7 Diarrhea, unspecified; R10.11 Right upper quadrant pain; K21.9 Gastro-esophageal reflux disease without esophagitis; K22.10 Ulcer of esophagus without bleeding; K29.50 Unspecified chronic gastritis without bleeding
CPT/HCPCS: 88312 ×2; 88305; 43239; J2704; J2001; J7120